=== PATIENT | male | born 1945 | race Caucasian/White ===

== ENCOUNTER 2020-11-30 06:52 | Observation (INO) ==
[2020-11-30] MEDS ORDERED: HEPARIN (PORCINE) 1000 UNIT/ML 10 ML (CATH LAB USE ONLY) ONE (08:30)
[2020-11-30] MEDS ORDERED: niCARdipine HCL INJ 2.5 MG/ML 10 ML AMP ONE (08:30)
[2020-11-30] MEDS ORDERED: MIDAZOLAM HCL 1 MG/ML 2ML VIAL ONE ×2 (08:31→10:24)
[2020-11-30] MEDS ORDERED: NITROGLYCERIN/D5W 100MCG/ML 20ML SYR ONE (08:31)
[2020-11-30] MEDS ORDERED: fentaNYL citrate 100 MCG/2 ML VIAL ONE (08:31)
--- NOTE | 2020-11-30 08:42 | History & Physical Bridge Note ---
Date of Service November 30, 2020 History & Physical Bridge Note I have examined the patient, reviewed the History & Physical and in the interval since the performance of the History & Physical I have noted the following changes of clinical significance: no changes noted
--- NOTE | 2020-11-30 08:42 | Pre Anesthesia Assessment ---
Date of Service November 30, 2020 Pre Sedation Assessment Vital Signs Temp Pulse Resp BP Pulse Ox 11/30/20 07:12 98.1 F 80 17 150/82 H 97 Cardiovascular RRR, no murmur, no edema Respiratory normal respiratory effort, lungs clear to auscultation Pre-Sedation Airway Assessment Smoking Status: Former smoker Hx Sleep Apnea: No Hx Difficult Intubation: No Short, Thick Neck: No Thyromental Distance: > or= 3.5 Finger Breadths Oral Cavity: + WNL Mallampati Class: II ASA: ASA3 NPO Status Date of Last Intake of Fluids: 11/30/20 Time of Last Intake of Fluids: 06:00 Date of Last Intake of Solid Food: 11/29/20 Time of Last Intake of Solid Foods: 17:30 Procedure Planning Contraindications for Sedation: none Current Medications Reviewed: Yes Notes The planned sedation has been discussed with the patient. Informed Consent was obtained. I have identified the patient, determined the appropriateness of sedation and have assessed the patient immediately prior to the procedure. All medicine(s) and interventions are by my order.
[2020-11-30] MEDS ORDERED: TICAGRELOR 90 MG TAB PO ONE (10:26)
[2020-11-30] MEDS ORDERED: EPTIFIBATIDE 2 MG/ML 10 ML VIAL (CATH LAB USE ONLY) IV ONE (10:26)
[2020-11-30] MEDS ORDERED: ONDANSETRON INJ 2 MG/ML 2 ML VIAL IV PRN (10:32)
[2020-11-30] MEDS ORDERED: NITROGLYCERIN SL 0.4 MG/TAB TAB SL PRN (10:32)
--- NOTE | 2020-11-30 10:32 | Post Anesthesia Assessment ---
Date of Service November 30, 2020 Post Sedation Assessment Vital Signs Temp Pulse Resp BP Pulse Ox 11/30/20 07:12 98.1 F 80 17 150/82 H 97 Recovery Score Activity: Moves 4 extremities Respiration: Deep Breath/Cough Circulation: +/-20% PreAnes Value Consciousness: Fully Awake Oxygen Saturation: O2 needed for >90% Discharge Sedation Level of Care: Fast Track Phase II Post Sedation Plan On clinical assessment, the patient appears to have tolerated the sedation without complications. Patient is recovering as anticipated. Patient will continue to be monitored by nursing and may be discharged when sedation discharge criteria are met per below protocol. Upon Completions of procedure up to 15 minutes continue every 5 minute vital signs and the P.A.R. score; then discharge to a Phase I or Fast Track to Phase II per the following guidelines: * Discharge Patient to appropriate Phase II area if PAR is 8 or greater or return to pre- procedure baseline. The post - procedure orders will be as directed. * If PAR score is less than 8 or not return to pre-procedure baseline then patient will follow Phase I monitoring till PAR is reached for Phase II. The Phase I may be done in procedure room or may call to secure a Phase I area. * If naloxone or flumazenil are used for reversal, hold in Phase I for continued monitoring from when last reversal dose was given for a minimum of 60 minutes or longer pending the nurse and/or physician discretion of patient condition before discharge to Phase II. Please call the Sedation Physician to re-evaluate and complete post-note for discharge to Phase II area. Do NOT discharge from procedure sedation or Phase 1 until post- sedation evaluation note is complete by procedure /sedation MD Sedation Discharge Instructions to be given to the patient at discharge to home.
[2020-11-30] MEDS ORDERED: GLUCOSE 10 TABS/TUBE PO PRN (10:37)
[2020-11-30] MEDS ORDERED: DEXTROSE 50% 50 ML SYRINGE IV PRN (10:37)
[2020-11-30] MEDS ORDERED: GLUCAGON FOR INJ 1 MG VIAL SQ PRN (10:37)
[2020-11-30] MEDS ORDERED: CARBOHYDRATES FOR HYPOGLYCEMIA PO PRN (10:37)
[2020-11-30] MEDS ORDERED: GLUCOSE 40% GEL 15 GM TUBE PO PRN (10:37)
--- NOTE | 2020-11-30 10:44 | Post Operative Brief Note ---
Cardiology Brief Post Op Date of Surgery November 30, 2020 Pre & Post Diagnosis Coronary artery disease Procedure Cardiac catheterization PCI of SVG to OM with 2 overlapping JHOAN Counselor Camp Kel Trevizo MD Sap Consultant Liliya Estimated Blood Loss 15 Findings See Below 99% SVG to OM Patent UNGER to LAD Occluded SVG to RCA Occluded ostial LAD 95 ostial circumflex Occluded proximal RCA Fluids -- Specimens Specimen Description: -- Anesthesia Type RN Sedation Complications none Disposition Accompanied Patient To Recovery: Yes Disposition: Recovery Room Overlapping Procedure I was present for: the critical portions of procedure. I was immediately available: during the entire case. Back up surgeon: was not required during procedure.
[2020-11-30] MEDS ORDERED: SODIUM CHLORIDE 0.9% 1000ML 1,000 ML IV SCH (10:45)
[2020-11-30] MEDS: INSULIN ASPART 100 UNITS/ML 3 ML PEN SC SCH ×3 (14:26→21:30)
[2020-11-30] MEDS: DOCUSATE SODIUM 100 MG CAP PO SCH (20:57)
[2020-11-30] MEDS: TICAGRELOR 90 MG TAB PO SCH (20:57)
--- NOTE | 2020-11-30 23:10 | Cardiac Catheterization ---
[facility] Data: Leak Hunter Cardiac Status Clinical evaluation leading to the procedure CAD Presenation: Positive Stress Test and Unstable angina Anginal Classification: CCS III Cardiogenic Shock within 24 Hours: No Cardiac Arrest within 24 Hours: No Imaging Studies Past 6 Months: Yes Stress Studies Past 6 Months: Yes Stress Echocardiogram: Yes - Positive and Risk/Extent of Ischemia (Intermediate) Diagnostic Physicians Name: Kel Trevizo MD Status: Elective Closure Device Percutaneous Entry Location: Radial Closure Device: Radial Band Recommendations: PCI without planned CABG PCI Indication: + Stress Test and Angina despite med therapy Lesion Segment Name: SVG-OM1 Culprit Artery: Yes Stenosis Prior to Rx (%): 99 Chronic Total Occlusion: No IVUS: No FFR: No Pre-Procedure SUNI Flow: 2 Previously Treated Lesion: No Lesion Complexity: High/C Lesion Length (mm): 30 Thrombus Present: Yes Bifurcation Lesion: No Guidewire Across Lesion: Stenosis Post-Procedure (%): 0 Post-Procedure SUNI Flow: 3 Devices(s) Deployed: Yes Yes Intraprocedure Events Significant Disection: No Perforation: No Cardiac Cath Procedure Full Procedure Date November 30, 2020 Pre-Procedure Diagnosis Pre-Procedure Diagnosis: Angina and Positive Stress Test AUC Score AUC Score: 7 Post-Procedure Diagnosis Post-Procedure Diagnosis: Severe CAD and Successful PCI Procedure(s) Performed Procedure(s) Performed: Coronary Angiography, Drug Eluting Stent and Bypass Graft Angiography Trip Rider Kel Trevizo MD Dynamiter(s) Liliya Estimated Blood Loss Estimated Blood Loss: 15 Medication(s) Medication(s): Fentanyl, Heparin, Integrilin, Lidocaine 1%, Nicardipine, Nitroglycerin and Versed Medication(s): Ticagrelor Summary of Findings Indication: Accelerating angina, abnormal stress test. History of coronary artery disease post three-vessel CABG and prior stenting of ostial LAD Access: 6 Fr left radial artery Catheters: JL4, JL 3.5, JR4, MPA, DIONICIO. JR4, LCB guide Findings: LM -long vessel with 50% mid segment stenosis and 95% distal stenosis extending into ostial circumflex LAD -100% chronic total occlusion at ostium Circumflex - 95% distal left main/ostial circumflex, 50% proximal disease. Large bifurcating OM1 with 95% ostial stenosis. Distal vessel with luminal irregularities prior to giving off small left PLB. RCA -dominant, 100% proximal chronic total occlusion. UNGER to LADwidely patent. Mid LAD after anastomosis patent. 70% distal stenosis. Remainder vessel wraps around apex without significant disease. LAD gives of left to right collaterals to right PDA. SVG to OM199% proximal, 50% mid vein graft stenosis. OM distal to anastomosis widely patent. SVG to RCAoccluded -- PCI of SVG to OM-- Antithrombotic therapy: Heparin, ticagrelor Procedure: SVG to OM cannulated with JR4 guide Attempted to place filter wire but unable to pass filter wire passed proximal stenosis Sueding Machine Tender 50 wire passed across lesion into distal OM Proximal vein graft lesion predilated with 2.0 compliant balloon Second attempt made to pass filter wire but unsuccessful. Vein graft disease dilated with 2.5 balloon. Given IC Integrilin preemptively for concern of no reflow With the aid of a telescope guide generator mechanic was able to pass a 3.5 x 18 mm Rylan drug-eluting stent into mid segment of graft Proximal lesion dilated with 3.5 balloon but still unable to pass second stent across proximal lesion Equipment removed and SVG recannulated with LCB guide BMW wire placed across proximal SVG lesion and mid SVG stent into the [place] OM With the aid of telescope able to place a 3.5 x 15 mm Rylan drug-eluting stent across proximal lesion in overlapping with initial mid segment stent Stent post-dilated with stent balloon IC vasodilators Post procedure SUNI 3 flow, stents well expanded with minimal residual stenosis and no apparent cardiac complications. Arterial Closure: TR band Summary: 1. Severe chronic [place] multivessel coronary artery disease -50% mid left main, 95% distal left main extending into ostial circumflex 100% chronic total occlusion of ostial LAD 100% chronic total occlusion of proximal RCA. Right PDA fills via [id number] collaterals. 95% ostial OM1 2. Patent UNGER to LAD. 70% distal LAD after anastomosis. 3. SVGOM1 with 99% proximal, 50% mid vein graft disease. SVG to RCA occluded. 4. Successful PCI of proximal to mid vein graft to OM1 with 2 overlapping drug- eluting stents (3.5 x 15, 3.5 x 18 mm Rylan). Recommendations: To PCU for continued monitoring Loaded with ticagrelor 180 mg in quality assurance/r&d lab technician Continue dual-antiplatelet therapy for at least 1 year Consult cardiac Rehab Hemodynamics Rest Ao:: 90//72 Final Ao: 83/52/77 LV: -- Recommendations Recommendations: PCI without planned CABG Specimens Specimens: None Radiation Exposure (mGy) 4172 Contrast (mls) 140 Fluids (cc crystalloids) Fluids (cc crystalloids): 230 Drains Drains: none Anesthesia moderate [id number] Procedural Complication(s) None Disposition PCU I attest to the content of the Intraoperative Record and any orders documented therein. Any exceptions are noted below. [facility] Card Cath Procedure Codes Cardiac Catheterization Procedure 1: Cardiovascular Cath Procedures: 38142 Coronaries and Grafts/IM (venous & atrial) Moderate Sedation Procedure 1: Sedation/Anesthesia: 85819 Mod Sedation by the same physician;Init15 Min Child Age 5 & Up Procedure 2: Sedation/Anesthesia: 78504 Mod Sedation by the same physician; Ea [id number] Minutes Stenting Procedure 1: Cardiovascular Stent Procedures: 23007 Perc tranluminal revascularization of or throughout CABG PG Care Time/CCT Total # of Minutes Spent Total Time Spent with Patient: Total time spent is greater than 50% in coordination of care (as documented) at patient's floor/unit and/or counseling patient:
[2020-12-01 06:28] LABS: Basophils # (auto) 0.03 K/uL (0-0.2); Basophils % (auto) 0.4 %; Eosinophils # (auto) 0.57 K/uL (0-0.5); Eosinophils % (auto) 7.3 %; Hematocrit (blood only) 46.7 % (42-52); Hemoglobin 16.9 g/dL (14.0-18.0); Immature Granulocytes # (auto) 0.01 K/uL (0.00-0.02); Immature Granulocytes % (auto) 0.1 %; Lymphocytes # (auto) 1.62 K/uL (1.2-3.4); Lymphocytes % (auto) 20.8 %; Mean Corpuscular Hemoglobin 34.9 pg (25-34); Mean Corpuscular Hgb Conc 36.2 g/dL (32-36); Mean Corpuscular Volume 96.5 fL (80-100); Mean Platelet Volume 10.8 fL (7.4-10.4); Monocytes # (auto) 0.62 K/uL (0.11-0.59); Neutrophils # (auto) 4.94 K/uL (1.4-6.5); Neutrophils % (auto) 63.4 %; Platelet Count 141 K/uL (130-400); RDW Coefficient of Variation 13.1 % (11.5-14.5); RDW Standard Deviation 45.8 fL (36.4-46.3); Red Blood Count 4.84 M/uL (4.7-6.1); White Blood Count 7.79 K/uL (4.8-10.8)
[2020-12-01 06:59] LABS: BUN Creatinine Ratio 14.7 (10-20); Calcium 9.3 mg/dl (8.5-10.1); Creatinine Clr Calc Pharmacy 47.1 ml/min; Est GFR (Non-African American) 48.3; Potassium 4.1 mmol/L (3.5-5.1)
[2020-12-01] MEDS: DOCUSATE SODIUM 100 MG CAP PO SCH (08:08)
[2020-12-01] MEDS: TICAGRELOR 90 MG TAB PO SCH (08:08)
[2020-12-01] MEDS ORDERED: lisinopril 5 MG TAB PO SCH (09:00)
[2020-12-01] MEDS ORDERED: ASPIRIN 81 MG ECTAB PO SCH (09:00)
[2020-12-01] MEDS ORDERED: MULTIVITAMIN TAB PO SCH (09:00)
[2020-12-01] MEDS ORDERED: NON-FORMULARY MEDICATION (Coq10 (Ubiquinol) 200 mg Capsule) PO SCH (09:00)
[2020-12-01] MEDS ORDERED: METOPROLOL SUCC 50MG EXT REL TAB PO SCH (09:00)
[2020-12-01] MEDS: INSULIN ASPART 100 UNITS/ML 3 ML PEN SC SCH (09:27)
--- NOTE | 2020-12-01 10:03 | Discharge Summary ---
Date of Service December 01, 2020 Admission HPI Per Admitting Provider 75 year old man with accelerating angina and abnormal stress test. Prior history of CAD post 3vCABG and prior LAD stenting. Presented for cardiac catheterization. Discharge Data Consultations 11/30/20 10:35 Consult Cardiac Rehabilitation Routine Procedures Performed Operation Date: 11/30/20 08:00 Actual Procedures p Cath, Left w/Cors Vent Grafts - Morris Trevizo MD s Cineradiography w/Routine Exam - Morris Trevizo MD s Drug Eluding Stent, SVG/DIONICIO, A - Morris Trevizo MD Hospital Course (1) Coronary artery disease with exertional angina: Cardiac catheterization revealed followin. Severe chronic [place] multivessel coronary artery disease -50% mid left main, 95% distal left main extending into ostial circumflex 100% chronic total occlusion of ostial LAD 100% chronic total occlusion of proximal RCA. Right PDA fills via [id number] collaterals. 95% ostial OM1 2. Patent UNGER to LAD. 70% distal LAD after anastomosis. 3. SVGOM1 with 99% proximal, 50% mid vein graft disease. SVG to RCA occluded. 4. Successful PCI of proximal to mid vein graft to OM1 with 2 overlapping drug- eluting stents (3.5 x 15, 3.5 x 18 mm [place]). Post PCI admitted for observation. Overnight had no chest pain. Electrically stable on telemetry. Post procedure labs stable. Mild ecchymosis at LT radial artery access site but no hematoma. Discharge to home on post procedure day 1. Clopidogrel changed to ticagrelor for at least 1 month. Follow-up with Dr. Lucas in 2 weeks. Discharge Instructions Home Medications Benefiber Sugar Free (dextrin) 1 packet PO QAM 04/29/19 [History Confirmed 11/30/20] allopurinol 300 mg PO HS 04/29/19 [History Confirmed 11/30/20] aspirin [Aspirin Low Dose] 81 mg PO HS 04/29/19 [History Confirmed 11/30/20] coQ10 (ubiquinol) 200 mg PO QAM 04/29/19 [History Confirmed 11/30/20] docusate sodium [Stool Softener] 200 mg PO BID 04/29/19 [History Confirmed 11/30/20] metformin 500 mg PO BIDM 04/29/19 [History Confirmed 11/30/20] metoprolol succinate 100 mg PO QAM 04/29/19 [History Confirmed 11/30/20] multivitamin 1 tab PO QAM 04/29/19 [History Confirmed 11/30/20] rosuvastatin 5 mg PO 4XWK 04/29/19 [History Confirmed 11/30/20] spironolactone 25 mg PO QAM 04/29/19 [History Confirmed 11/30/20] furosemide 20 mg tablet 10 mg PO QAM #90 tab 07/30/19 [Rx Confirmed 11/30/20] lisinopril 5 mg tablet 5 mg PO DAILY #90 tab 04/09/20 [Rx Confirmed 11/30/20] dulaglutide 0.75 mg/0.5 mL subcutaneous pen injector 1 mg SUBCUT WK 09/02/20 [History Confirmed 11/30/20] ranolazine 500 mg tablet,extended release,12 hr 500 mg PO BID #180 tab 11/08/20 [Rx Confirmed 11/30/20] ticagrelor [Brilinta] 90 mg PO BID #60 tab 12/01/20 [Rx] Coding Level of Care Code 81657 OBS Care - Discharge Diagnoses Coronary artery disease with exertional angina I25.118
--- NOTE | 2020-12-01 12:34 | Electrocardiogram Report ---
Test Reason : Blood Pressure : / mmHG Vent. Rate : 075 BPM Atrial Rate : 075 BPM P-R Int : 168 ms QRS Dur : 104 ms QT Int : 418 ms P-R-T Axes : 073 083 112 degrees QTc Int : 466 ms Normal sinus rhythm Possible Left atrial enlargement Possible Inferior infarct (cited on or before 11-DEC-2009) Abnormal ECG When compared with ECG of 24-JUN-2010 06:47, T wave inversion no longer evident in Inferior leads T wave inversion no longer evident in Anterolateral leads Confirmed by Stew Yin ([id number]) on 12/01/2020 12:34:33 PM Referred By: Naeem Lucas Confirmed By:Stew Yin
== END 2020-12-01 10:23 | disposition home or self-care (01) ==
LOC: CC 06:52 → 2S 06:52
PROC: CLB.CCG (2020-11-30 08:00)

== ENCOUNTER 2023-02-12 10:36 | Inpatient (IN) ==
[2023-02-12] MEDS ORDERED: SODIUM CHLORIDE 0.9% 1000ML 1,000 ML IV ONE (11:03)
[2023-02-12] MEDS ORDERED: cefTRIAXone SODIUM 2,000 MG/70 ML BAG IV STA (11:03)
[2023-02-12 11:33] LABS: Basophils # (auto) 0.03 K/uL (0-0.2); Basophils % (auto) 0.4 %; Eosinophils # (auto) 0.09 K/uL (0-0.50); Eosinophils % (auto) 1.3 %; Hemoglobin 14.5 g/dl (14.0-18.0); Immature Granulocytes # (auto) 0.02 K/uL (0.01-0.20); Immature Granulocytes % (auto) 0.3 %; Lymphocytes # (auto) 0.57 K/uL (1.2-3.4); Lymphocytes % (auto) 8.2 %; Mean Corpuscular Hemoglobin 33.6 pg (25.0-34.0); Mean Corpuscular Hgb Conc 35.4 g/dL (32.0-36.0); Mean Corpuscular Volume 94.9 fL (80.0-100.0); Mean Platelet Volume 9.9 fL (9.4-12.4); Monocytes # (auto) 0.33 K/uL (0.11-0.59); Monocytes % (auto) 4.8 %; Neutrophils # (auto) 5.89 K/uL (1.40-6.50); Platelet Count 167 K/uL (130-400); RDW Coefficient of Variation 12.8 % (11.5-14.5); Red Blood Count 4.32 M/uL (4.70-6.10); White Blood Count 6.93 K/ul (4.8-10.8)
[2023-02-12 11:39] LABS: BUN Creatinine Ratio 16.1 (10-20); Bilirubin Direct 0.3 mg/dl (0-0.2); Bilirubin,Total 1.1 mg/dl (0.2-1.0); Calcium 8.9 mg/dl (8.6-10.3); Creatinine Clr Calc Pharmacy 45.4 ml/min; Est GFR (African American) 54.7 ml/min; Est GFR (Non-African American) 47.2 ml/min; Magnesium 1.9 mg/dl (1.7-2.4); Potassium 4.2 mmol/L (3.5-5.1); Total Protein 7.3 gm/dl (6.0-8.3)
[2023-02-12 11:46] LABS: Troponin I High Sensitivity 13.9 pg/ml (0-20)
[2023-02-12] MEDS ORDERED: ACETAMINOPHEN 325 MG TAB PO PRN (12:09)
[2023-02-12] MEDS ORDERED: ALUMINUM/MAGNESIUM SUSP 30 ML UDC PO PRN (12:09)
[2023-02-12] MEDS ORDERED: ONDANSETRON INJ 2 MG/ML 2 ML VIAL IV PRN (12:09)
[2023-02-12] MEDS ORDERED: POLYETHYLENE (MIRALAX) 17 GM PACK PO PRN (12:09)
[2023-02-12] MEDS ORDERED: MAGNESIUM HYDROXIDE SUSP 30 ML UDC PO PRN (12:09)
--- NOTE | 2023-02-12 12:20 | History & Physical Report ---
Date of Service February 12, 2023 Assessment & Plan (1) Bacteremia: (2) CAMELIA (acute kidney injury): (3) History of coronary artery bypass graft x 3: (4) S/P drug eluting coronary stent placement: (5) S/P aortic valve replacement with bioprosthetic valve: (6) Hypertension: (7) Hyperlipidemia: (8) Diabetes mellitus, type 2: (9) Chronic kidney disease, stage 3: (10) CHAMPAGNE (nonalcoholic steatohepatitis): Plan 77 year old presents with CHRISTOPHER and fever that has persisted over the past few days. Yesterday his temperature went up to 104 and has responded to Tylenol. He presented to the ED yesterday and had a workup including BC that returned 11/28 gram + strep. Streptococcus PCR (+). No leukocytosis. Hypona+ worsening CAMELIA 1.1--> 1.43 in 24 hours. Pt had CABG x3 and AVR in 2009; will obtain ECHO to r/o IE. On Plavix + ASA. Lacate 2.0, Procal increased from yesterday. consider LP. H/O renal lesions as outlined below. Bacteremia: Blood cultures 02/11/2023: Gram-positive cocci in clusters Streptococcus PCR positive Per recommendations of pharmacy cover with ceftriaxone; first dose given in ED; will continue and add Vanco Procalcitonin increased from 0.95 yesterday to 1.16 today Lactate 2.0; will trend Lyme negative anaplasmosis negative BioFire negative Chest x-ray negative MRSA screen ordered ECHO ordered to rule out infective endocarditis in relation to prosthetic valve; if negative consider MARIA ELENA Will obtain abdominal/pelvic CT to rule out metastatic disease and septic emboli Possible LP for r/o meningitis Infectious disease consultation placed CAMELIA on CKD Stage III: Hyponatremia: Suspect related to dehydration and illness No urinary changes Creatinine 1.17 yesterday--> 1.43 today; baseline 1.1-1.2 Renal ultrasound in 2015: Medial left renal lesion seen on CT is not appreciated on ultrasound. Suggest MRI or CT via renal mass. Right Kidney: Normal size and echotexture. The right kidney measures 11.5 x 6.0 x 5.7 cm. Left Kidney: Normal size and echotexture. The left kidney measures 11.5 x 6.3 x 5.1 cm. Superior pole cyst measuring approximately 2.[address] performed 2014: showed decrease in lesion size Obtain abd/pelvic CT while here Gentle fluid rehydration NSS at 80mL/hour x1 bag Recheck BMP this evening at 1800; if worsening; consider Nephrology consultation History of CABG x3: Status post drug-eluting stent: Status post AVR with p.o. bioprosthetic valve: Performed 2009; follows with Dr. Harper Obtain ECHO to rule out IE; if negative consider MARIA ELENA HTN: Takes metoprolol and Coreg; continue HLD: Takes rosuvastatin; continue Last lipid panel 11/08/2022; TG 167, HDL 71, LDL 104 Diabetes mellitus type 2: Jfr-bolagxi-urahzyaqu Takes Trulicity and Metformin; hold while inpatient FSBS ACHS SSI Glycemic consultation for Lantus management A1c 11/08/2022: 6.8 we will recheck while here H/O CHAMPAGNE: TBili: 1.1, direct bili 0.3 No transaminitis Disposition: PCP: Dr. Powell Code Status: Full Code VTE Prophylaxis: Teds/SCDs for now. I spent a total of 88 minutes coordinating, documenting, and providing care for this patient excluding time spent in the performance of separately billed services. All of the aforementioned completed while collaborating with the assigned attending physician for a full treatment plan. Please see their addendum for further details. History of Present Illness Chief Complaint: bacteremia - (+) blood cultures Primary Care Provider: Fadi Scott DO Mr. Guan is a 77-year-old male that presented to the [facility] ED today after results of his blood cultures came back gram-positive cocci in clusters and Streptococcus PCR positive that were drawn yesterday 02/11/23. He was seen in the ER yesterday for headache, fever, and achiness. Work-up was negative at that time; however, blood cultures came back positive today so he was advised to present to the ED. Patient states that he is feeling improved today compared to yesterday. No leukocytosis WBC 6.93, procalcitonin yesterday 0.95 and has increased today to 1.16. Hyponatremic sodium 131, CAMELIA creatinine 1.43; baseline 1.1. CXR today negative for acute cardiopulmonary disease. As cultures returned positive < 24 hours; higher concern for ruling out cause. Will obtain ECHO to rule out IE, especially with bioprosthetic valve. If negative, will consider MARIA ELENA for further evaluation. Patient is a current resident of [facility] [[email or web address] Patient twisted his knee playing golf in 2021 and also suffered a quad injury in 2022 and has been getting physical therapy with PT at [facility] with improvement. Patient follows with Dr. Alberto with vascular for peripheral vascular disease and claudication which has been improving with exercise. He is quite active and has an upcoming trip planned to [facility] and [place] on a cruise in February 2023. 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 No nephrectomy performed. He had a renal ultrasound in 2015: Medial left renal lesion seen on CT is not appreciated on ultrasound. Suggest MRI or CT via renal mass. Right Kidney: Normal size and echotexture. No significant collecting system dilatation or stones evident. The right kidney measures 11.5 x 6.0 x 5.7 cm. Left Kidney: Normal size and echotexture. No significant collecting system dilatation or stones evident. The left kidney measures 11.5 x 6.3 x 5.1 cm. Superior pole cyst measuring approximately 2.[address] done in 2015; lesion decreased in size. Have concerns about a man with no real source of infection; consistent headaches and fevers over past few weeks. patient is on Plavix and ASA; need to consider Meningitis ans source; will discuss with radiology for performance of LP. Patient denies visual or auditory changes, dizziness, abdominal pain, tenderness, Nausea, Vomiting, Diarrhea mucous stool, malodorous stool, recent falls or trauma, rashes, bruising, or appetite changes. Additional past medical history includes CABG x3 (2009) s/p AVR prosthetic tissue valve (On Plavix), tib-nqbsazu-ebfjjlspc diabetes mellitus type 2 (On Trulicity and Metformin), HTN, HLD, and H/O CHAMPAGNE. Patient denies tobacco and recreational drug use. Pt denies recent travel or known sick exposures. Patient denies any stiff or swollen joints. Patient does not appear toxic on exam and is hemodynamically stable. Patient will be admitted for further evaluation and management of his bacteremia. Please see A/P for further details. Allergies Allergy/AdvReac Type Severity Reaction Status Date / Time atorvastatin Allergy Severe RHABDO Verified 02/12/23 12:34 niacin Allergy Mild FACIAL Verified 02/12/23 12:34 BURNING Home Medications Medication Instructions Recorded Confirmed Type allopurinol 300 mg tablet 300 mg PO HS 04/29/19 02/12/23 History aspirin 81 mg tablet,delayed 81 mg PO HS 04/29/19 02/12/23 History release (Yunior Low Dose Aspirin) coQ10 (ubiquinol) 200 mg capsule 200 mg PO QAM 04/29/19 02/12/23 History docusate sodium 100 mg tablet 200 mg PO BID 04/29/19 02/12/23 History (Stool Softener) metformin 500 mg tablet 500 mg PO BIDM 04/29/19 02/12/23 History spironolactone 25 mg tablet 25 mg PO QAM 04/29/19 02/12/23 History wheat dextrin 3 gram/3.8 gram oral 1 packet PO QAM 04/29/19 02/12/23 History powder (Benefiber Sugar Free (dextrin)) dulaglutide 0.75 mg/0.5 mL 3 mg subcut WK 10/27/21 02/12/23 History subcutaneous pen injector (Trulicity) metoprolol succinate 100 mg 100 mg PO DAILY #30 tabs 11/09/21 02/12/23 Rx tablet,extended release 24 hr (Toprol XL) nitroglycerin 0.4 mg sublingual 0.4 mg sublingual Q5M PRN chest 12/17/21 02/12/23 Rx tablet pain #75 tabs clopidogrel 75 mg tablet (Plavix) 75 mg PO QAM 02/11/23 02/12/23 History ytslukeunslw-itj-wgfup acid-vit 1 tab PO DAILY 02/11/23 02/12/23 History K-lycop 400 mcg-20 mcg-370 mcg tablet (Men's 50 Plus Multivitamin) rosuvastatin 10 mg tablet 10 mg PO [id number] 02/11/23 02/12/23 History Past Med/Surg History Medical History CAMELIA (acute kidney injury) Bacteremia CAD (coronary artery disease) Cardiac murmur Chest pain Chronic kidney disease, stage 3 Coronary artery disease with exertional angina Diabetes mellitus, type 2 Exertional angina Fatigue Gout History of colon polyps Hyperlipidemia Hypertension CHAMPAGNE (nonalcoholic steatohepatitis) Postural lightheadedness Sleep apnea no longer has, lost weight Weakness Surgical History History of aortic valve replacement done at [place] time [place] [facility] [place] with Dr. Lucas History of cardiac cath x2-- History of colonoscopy History of coronary artery bypass graft x 3 2010 @ [facility] [place]follows with Dr. Lucas History of heart artery stent 2010 x2 stent History of hemorrhoidectomy History of thoracentesis History of tooth extraction S/P aortic valve replacement with bioprosthetic valve Family History Brother Family history of diabetes mellitus 2 Sister Family history of diabetes mellitus Other No family history of adverse response to anesthesia Social History Smoking Status: Former smoker Tobacco Type: Cigarettes Second Hand Exposure: No; Do You Dip or Chew Tobacco: No; Tobacco Cessation Education Requested by Patient: No Hx Alcohol Use: Yes Alcohol type: beer and wine Hx Substance Use: No Preferred Language: German Communication Ability: Effective Relationship Mgr Required: No Beliefs That Will Affect Care: None Current Living Situation: Spouse Other Information That Helps Us Care for You: No Feels Safe at Home: Yes Safety Concerns: Feels Safe At This Time Assistive Devices: None Review of Systems Review of Systems: Neuro: (-) Falls, trauma, slurred speech HEENT: (+) CHRISTOPHER, (-)dizziness, dysphagia, visual or auditory changes CV: (-) CP, palpitations, swelling Resp: (-) SOB GI: (-) appetite changes, N/V/D, bowel changes : (-) urinary changes Skin: (-) rashes (-) Psych: (-) anxiety, depression Physical Exam Physical Exam: Neuro: AAOx4, PERRLA, no aphagia, memory changes, CNII-XII grossly intact HEENT: head normocephalic, moist mucus membranes CV: S1/S2, (-) M/G/R, (-) edema, cap refill < 3 seconds Resp: Lungs CTA in all chris. On RA GI: Abdomen large S/NT/ND, Ax4 bowel sounds, (-) CVA tenderness Musculoskeletal: 5/5 B/L UE strength, 5/5 B/L LE strength. No gait disturbance Skin: (-) rashes , (-) erythema (-) ecchymosis. Psych: euthymic mood Results & Data Results & Data Vital Signs (Past 12 Hours) Vital Signs Temp Pulse Resp BP Pulse Ox O2 Del Method 02/12/23 10:36 36.7 C 97 H 20 130/74 96 Room Air Laboratory Results Short CBC 02/12/23 Range/Units 11:00 WBC 6.93 (4.8-10.8) K/ul Hgb 14.5 (14.0-18.0) g/dl Hct 41.0 L (42.0-52.0) % Plt Count 167 (130-400) K/uL BMP 02/12/23 11:00 Sodium 131 L Potassium 4.2 Chloride 99 Carbon Dioxide 24 BUN 23 Creatinine 1.43 H Glucose 269 H Calcium 8.9 Liver Function 02/12/23 Range/Units 11:00 Total Bilirubin 1.1 H (0.2-1.0) mg/dl Direct Bilirubin 0.3 H (0-0.2) mg/dl AST 26 (13-39) U/L ALT 36 (7-52) U/L Alkaline Phosphatase 89 (34-104) U/L Albumin 4.0 (3.4-5.0) gm/dl Code Status & VTE Plan Code Status Full Code in the event of cardiac or respiratory arrest VTE Prophylaxis Plan VTE Prophylaxis will be ordered: Yes Supervising Physician Co-Signing Physician Notes I have seen and examined the patient and have discussed the case with the provider above. I agree with the assessment and plan as stated with the following exceptions. I have seen and examined the patient and have discussed the case with the provider above. I agree with the assessment and plan as stated with the following exceptions. The patient is a 77-year-old man that presents for being called back about positive blood cultures. PCR from blood cultures yesterday revealed Streptococcus species in 4 out of 4 cultures. Yesterday he presented with headache fever and generalized malaise for the past week. Headache was described as consistent and in the front. He denied any photophobia or neck stiffness. He has participated in [employer] and travel to [place] within the last week but denies any GI symptoms respiratory symptoms skin issues, open wounds or other significant sick contacts in his recent history. He denies any chest pain. He does have a bioprosthetic valve in place. He has not been eating well and denies any changes in his stool. Patient denies any bites from insects recently. On physical exam he is afebrile and hemodynamically stable. He is nontoxic- appearing he is well-nourished and well-developed and appears younger than stated age. He has no gross focal neuromuscular deficits. Lungs are clear to auscultation throughout. Abdomen is soft nontender nondistended. Cardiac exam reveals S1-S2 heard with a systolic ejection murmur across precordium. He appears euvolemic to dry with no evidence of peripheral edema. Skin is warm and dry with no significant rash or bites from what can be evaluated as he has tight pants on limiting evaluation of his upper thighs buttocks area and groin. Work-up in the ER today reveals a normal CBC, sodium of 131 which was 129 yesterday, normal potassium. BUN of 23 up from 16 yesterday and creatinine of 1.43 up from 1.17 yesterday. Glucose is elevated to 69. A1c is 7. At bedtime troponin is negative. Procalcitonin is increased from yesterday, 0.95-1.16 today. UA does not reveal evidence of infection. Chest x-ray reveals no acute cardiopulmonary abnormality. Abdomen pelvis CT with contrast reveals no acute findings with cholelithiasis and right-sided nephrolithiasis. Notably bilirubin is 1.1. Head CT with recent history of headache revealed no acute intracranial abnormality. 1. Bacteremia with unclear source 2. Presence of bioprosthetic aortic valve 3. CAD s/p CABG and stents in the past 4. Acute on chronic CKD 5. DMII Overall this is a 77-year-old man with generalized malaise and bacteremia, PCR revealing strep species with sensitivities pending. There is no clear source, however, given ongoing headache and fever for the last week, meningitis was considered. Patient is very nontoxic and appears stable and is afebrile today. He is reporting the headache is not currently present. He is also on aspirin and Plavix which increases the risk of complications with a lumbar puncture. Head CT is negative for acute intracranial abnormality. I discussed this with both radiology and infectious disease specialists, and opted to empirically treat with Rocephin 2 g IV every 12 in case of bacterial meningitis for now and avoid the procedure. With prosthetic valve and bacteremia, prosthetic valve endocarditis is a concern. A murmur is present on exam. Given his high bacterial load and recent clinical picture with ongoing fever and malaise a MARIA ELENA was recommended given the TTE was unremarkable. This was per the my discussion with ID who was consulted and will see him tomorrow. I also discussed if we should cover more broadly with Vanc/gent despite the PCR revealing only strep species. For now, given his stable clinical picture, the Rocephin at the higher dose will be continued and will repeat blood cultures today and until they are cleared. Agree with mild rehydration with IVF with renal insufficiency and contrast given today. Will repeat BMP daily and encourage oral hydration. Patricio,
--- NOTE | 2023-02-12 13:08 | Emergency Department Note ---
History of Present Illness General Chief Complaint: Abnormal Labs/Diagnostic Testing Stated Complaint: REF BY DOC, ABNORMAL LABS Time Seen by Provider: 02/12/23 11:01 History of Present Illness Provider Complaint: + abnormal lab and + needs IV antibiotics Returns today for: + needs IV antibiotics Description of abnormal result: 4/ positive blood cultures Associated symptoms: + fever; no shortness of breath or no rash HPI narrative: Patient reports he was seen in the emergency department yesterday and discharged home. Patient states since getting home he feels much better actually. Home Medications Medication Instructions Recorded Confirmed Type allopurinol 300 mg tablet 300 mg PO HS 04/29/19 02/12/23 History aspirin 81 mg tablet,delayed 81 mg PO HS 04/29/19 02/12/23 History release (Yunior Low Dose Aspirin) coQ10 (ubiquinol) 200 mg capsule 200 mg PO QAM 04/29/19 02/12/23 History docusate sodium 100 mg tablet 200 mg PO BID 04/29/19 02/12/23 History (Stool Softener) metformin 500 mg tablet 500 mg PO BIDM 04/29/19 02/12/23 History spironolactone 25 mg tablet 25 mg PO QAM 04/29/19 02/12/23 History wheat dextrin 3 gram/3.8 gram oral 1 packet PO QAM 04/29/19 02/12/23 History powder (Benefiber Sugar Free (dextrin)) dulaglutide 0.75 mg/0.5 mL 3 mg subcut WK 10/27/21 02/12/23 History subcutaneous pen injector (Trulicity) metoprolol succinate 100 mg 100 mg PO DAILY #30 tabs 11/09/21 02/12/23 Rx tablet,extended release 24 hr (Toprol XL) nitroglycerin 0.4 mg sublingual 0.4 mg sublingual Q5M PRN chest 12/17/21 02/12/23 Rx tablet pain #75 tabs clopidogrel 75 mg tablet (Plavix) 75 mg PO QAM 02/11/23 02/12/23 History uautjuzldgol-tno-veyyr acid-vit 1 tab PO DAILY 02/11/23 02/12/23 History K-lycop 400 mcg-20 mcg-370 mcg tablet (Men's 50 Plus Multivitamin) rosuvastatin 10 mg tablet 10 mg PO 4XWK 02/11/23 02/12/23 History Allergies Allergy/AdvReac Type Severity Reaction Status Date / Time atorvastatin Allergy Severe RHABDO Verified 02/12/23 12:34 niacin Allergy Mild FACIAL Verified 02/12/23 12:34 BURNING Past Med/Surg History Medical History CAMELIA (acute kidney injury) Bacteremia CAD (coronary artery disease) Cardiac murmur Chest pain Chronic kidney disease, stage 3 Coronary artery disease with exertional angina Diabetes mellitus, type 2 Exertional angina Fatigue Gout History of colon polyps Hyperlipidemia Hypertension CHAMPAGNE (nonalcoholic steatohepatitis) Postural lightheadedness Sleep apnea no longer has, lost weight Weakness Surgical History History of aortic valve replacement done at same time as CABG @ [facility] [place]follows with Dr. Lucas History of cardiac cath x2-- History of colonoscopy History of coronary artery bypass graft x 3 2009 @ [facility] [place]follows with Dr. Lucas History of heart artery stent 2009 x2 stent History of hemorrhoidectomy History of thoracentesis History of tooth extraction S/P aortic valve replacement with bioprosthetic valve Family History Brother Family history of diabetes mellitus 2 Sister Family history of diabetes mellitus Other No family history of adverse response to anesthesia Social History Smoking Status: Never smoker Tobacco Type: Cigarettes Second Hand Exposure: Yes (father smoked); Do You Dip or Chew Tobacco: No (quit 50yrs ago); Hx Alcohol Use: Yes Alcohol type: beer and wine Hx Substance Use: No Preferred Language: Grenadian Communication Ability: Effective Cooking Instructor Required: No Beliefs That Will Affect Care: None Current Living Situation: Spouse Feels Safe at Home: Yes Assistive Devices: None Physical Exam Vital Signs: Vital Signs - 24 hr 02/12/23 10:36 02/12/23 12:30 02/12/23 12:20 Temperature 36.7 C Temperature Source Temporal Artery Sc an Pulse Rate 97 H 84 Pulse Rate [Apical ] 84 Respiratory Rate 20 21 Respiratory Effort / Characteristics Non-Labored Non-Labored Sponta neous Respiratory Depth Normal Normal Blood Pressure 130/74 Blood Pressure [Ri ght Arm] 113/60 Blood Pressure Reema n 92 Blood Pressure Reema n [Right Arm] 77 Pulse Oximetry 96 97 Oxygen Delivery Me thod Room Air Room Air Sepsis Recent Feve r Within 48 Hours No Sepsis New/Unexpla ined Change in Men lenny Status N/A Sepsis Action Take n by Nursing No Action Required 02/12/23 12:00 Temperature Temperature Source Pulse Rate 83 Pulse Rate [Apical ] Respiratory Rate 14 Respiratory Effort / Characteristics Respiratory Depth Blood Pressure Blood Pressure [Ri ght Arm] Blood Pressure Reema n Blood Pressure Reema n [Right Arm] Pulse Oximetry Oxygen Delivery Me thod Sepsis Recent Feve r Within 48 Hours Sepsis New/Unexpla ined Change in Men lenny Status Sepsis Action Take n by Nursing Physical Exam: Physical Exam GENERAL: oriented to person, place, and time. appears well-developed and well- nourished. HENT: Exam performed. - Head: Normocephalic and atraumatic. - Mouth: Mucous membranes moist. No trismus. No oropharyngeal exudates. No PRECISION LENS TECHNICIAN. No uvula swelling. EYES: Conjunctivae and EOM are normal. Right eye exhibits no discharge. Left eye exhibits no discharge. No scleral icterus. NECK: Normal range of motion. Neck supple. No JVD present. No meningeal signs. CV: Normal rate, regular rhythm, normal heart sounds and intact distal pulses. There is no peripheral edema. Palpable radial pulses bue. PULM/CHEST: Effort normal and breath sounds normal. No respiratory distress. No stridor. no wheezes. no rales. ABD: The abdomen is soft. There is no tenderness. NEURO: Motor and sensation grossly intact. SKIN: Skin is warm and dry. He is not diaphoretic. PSYCH: normal mood and affect. Behavior is normal. Judgment and thought content normal. Course Course 1101: The patient was evaluated in room C12. A complete history and physical exam was performed Administered Medications Discontinued Medications Sodium Chloride (Nss 1000ml) 1,000 mls @ 999 mls/hr IV .Q1H1M ONE Stop: 02/12/23 12:03 Last Admin: 02/12/23 11:32 Dose: 999 mls/hr Documented By: ROSA Ceftriaxone Sodium (Rocephin) 2,000 mg in 70 mls @ 140 mls/hr IV NOW STA Stop: 02/12/23 11:32 Last Infusion: 02/12/23 12:31 Dose: 0 mls/hr Documented By: Admin: 02/12/23 11:31 Dose: 140 mls/hr Documented By: ROSA Medical Decision Making Laboratory Data Attestation: I reviewed the patient's lab results. 02/12/23 11:00 02/12/23 11:00 Lab Results 02/12/23 02/12/23 02/12/23 Range/Units 11:00 11:00 11:00 WBC 6.93 (4.8-10.8) K/ul RBC 4.32 L (4.70-6.10) M/uL Hgb 14.5 (14.0-18.0) g/dl Hct 41.0 L (42.0-52.0) % MCV 94.9 (80.0-100.0) fL MCH 33.6 (25.0-34.0) pg MCHC 35.4 (32.0-36.0) g/dL RDW Std Deviation 44.0 (36.4-46.3) fL RDW Coeff of Daria 12.8 (11.5-14.5) % Plt Count 167 (130-400) K/uL MPV 9.9 (9.4-12.4) fL Immature Gran % (Auto) 0.3 % Neut % (Auto) 85.0 % Lymph % (Auto) 8.2 % [place] % (Auto) 4.8 % Eos % (Auto) 1.3 % Baso % (Auto) 0.4 % Neut # (Auto) 5.89 (1.40-6.50) K/uL Lymph # (Auto) 0.57 L (1.2-3.4) K/uL [place] # (Auto) 0.33 (0.11-0.59) K/uL Eos # (Auto) 0.09 (0-0.50) K/uL Baso # (Auto) 0.03 (0-0.2) K/uL Immature Gran # (Auto) 0.02 (0.01-0.20) K/uL Sodium 131 L (136-145) mmol/L Potassium 4.2 (3.5-5.1) mmol/L Chloride 99 (98-107) mmol/L Carbon Dioxide 24 (21-32) mmol/L Anion Gap 8 (3-11) BUN 23 (6-23) mg/dl Creatinine 1.43 H (0.6-1.4) mg/dl Est Cr Clr Drug Dosing 45.4 ml/min Est GFR ( Amer) 54.7 ml/min Est GFR (Non-Af Amer) 47.2 ml/min BUN/Creatinine Ratio 16.1 (10-20) Glucose 269 H (70-99(Fasting)) mg/dl Lactate 2.0 (0.4-2.0) mmol/L Calcium 8.9 (8.6-10.3) mg/dl Magnesium 1.9 (1.7-2.4) mg/dl Total Bilirubin 1.1 H (0.2-1.0) mg/dl Direct Bilirubin 0.3 H (0-0.2) mg/dl AST 26 (13-39) U/L ALT 36 (7-52) U/L Alkaline Phosphatase 89 (34-104) U/L Troponin I High Sens 13.9 D (0-20) pg/ml Total Protein 7.3 (6.0-8.3) gm/dl Albumin 4.0 (3.4-5.0) gm/dl Procalcitonin (0-0.5) ng/ml SARS-CoV-2, RNA, NAAT (NEGATIVE) 02/12/23 02/12/23 Range/Units 11:00 11:37 WBC (4.8-10.8) K/ul RBC (4.70-6.10) M/uL Hgb (14.0-18.0) g/dl Hct (42.0-52.0) % MCV (80.0-100.0) fL MCH (25.0-34.0) pg MCHC (32.0-36.0) g/dL RDW Std Deviation (36.4-46.3) fL RDW Coeff of Daria (11.5-14.5) % Plt Count (130-400) K/uL MPV (9.4-12.4) fL Immature Gran % (Auto) % Neut % (Auto) % Lymph % (Auto) % [place] % (Auto) % Eos % (Auto) % Baso % (Auto) % Neut # (Auto) (1.40-6.50) K/uL Lymph # (Auto) (1.2-3.4) K/uL [place] # (Auto) (0.11-0.59) K/uL Eos # (Auto) (0-0.50) K/uL Baso # (Auto) (0-0.2) K/uL Immature Gran # (Auto) (0.01-0.20) K/uL Sodium (136-145) mmol/L Potassium (3.5-5.1) mmol/L Chloride (98-107) mmol/L Carbon Dioxide (21-32) mmol/L Anion Gap (3-11) BUN (6-23) mg/dl Creatinine (0.6-1.4) mg/dl Est Cr Clr Drug Dosing ml/min Est GFR ( Amer) ml/min Est GFR (Non-Af Amer) ml/min BUN/Creatinine Ratio (10-20) Glucose (70-99(Fasting)) mg/dl Lactate (0.4-2.0) mmol/L Calcium (8.6-10.3) mg/dl Magnesium (1.7-2.4) mg/dl Total Bilirubin (0.2-1.0) mg/dl Direct Bilirubin (0-0.2) mg/dl AST (13-39) U/L ALT (7-52) U/L Alkaline Phosphatase (34-104) U/L Troponin I High Sens (0-20) pg/ml Total Protein (6.0-8.3) gm/dl Albumin (3.4-5.0) gm/dl Procalcitonin 1.16 H (0-0.5) ng/ml SARS-CoV-2, RNA, NAAT NEGATIVE (NEGATIVE) MDM Narrative Cardiac monitoring: An order was placed for continuous cardiac monitoring. The monitor shows a rate of 80 with sinus rhythm interpreted by ia External medical records curds were reviewed. Patient was seen in the emergency department last night. He is reporting a fever on and off for the last 5 days and weakness. Patient had blood work done which showed a procalcitonin 0.95. Lactic acid was negative. BioFire was negative. Patient had blood cultures drawn and 4/4 blood cultures showed gram-positive cocci in chains. Discussed with pharmacy and the patient will be admitted and started on Rocephin. Discussed with Rochelle who states to admit to [facility] hospitalist Dr. Curry. Impression & Plan Bacteremia Discharge Plan Visit Data Chief Complaint: Abnormal Labs/Diagnostic Testing Stated Complaint: REF BY DOC, ABNORMAL LABS ED Provider: Sal Keller Discharge Problem: Bacteremia Patient Disposition: Admitted As Inpatient Forms Stand Alone Forms: My [facility] Prescriptions Prescriptions: No Action nitroglycerin 0.4 mg tablet, sublingual 0.4 mg sublingual Q5M PRN (Reason: chest pain) Qty: 75 3RF Rx Instructions: do not exceed 3 doses per episode Trulicity 0.75 mg/0.5 mL pen injector 3 mg subcut WK Rx Instructions: SUNDAYS metformin 500 mg Tablet 500 mg PO BIDM Hold Instructions: Home Medication placed on hold at Doctor's office aspirin [Yunior Low Dose Aspirin] 81 mg Tablet,Delayed Release (Dr/Ec) 81 mg PO HS spironolactone 25 mg Tablet 25 mg PO QAM Hold Instructions: low bp allopurinol 300 mg Tablet 300 mg PO HS docusate sodium [Stool Softener] 100 mg Tablet 200 mg PO BID coQ10 (ubiquinol) 200 mg Capsule 200 mg PO QAM Benefiber Sugar Free (dextrin) 3 gram/3.8 gram Powder 1 packet PO QAM metoprolol succinate [Toprol XL] 100 mg tablet extended release 24 hr 100 mg PO DAILY Qty: 30 6RF clopidogrel [Plavix] 75 mg Tablet 75 mg PO QAM Men's 50 Plus Multivitamin 400-20-370 mcg Tablet 1 tab PO DAILY rosuvastatin 10 mg tablet 10 mg PO 4XWK Rx Instructions: TAKES MON, WED, FRI & SAT. Referrals Referrals: Fadi Scott DO [Primary Care Provider] -
[2023-02-12 13:19] LABS: Estimated Average Glucose 154 mg/dl
[2023-02-12] MEDS ORDERED: SODIUM CHLORIDE 0.9% 1000ML 1,000 ML IV SCH (13:30)
[2023-02-12 13:33] LABS: Appearance Urine Clear (Clear); Bacteria Urine Automated Negative (Negative); Blood Urine Negative (Negative); Color Urine Dark Yellow; Glucose Urine UA Negative (Negative); Ketones Urine Trace (Negative); Leukocyte Esterase Urine Trace (Negative); Nitrite Urine Negative (Negative); Protein Urine 1+ (Negative); RBC Urine Automated 0-4 /hpf (0-4); Specific Gravity Urine 1.025 (1.000-1.030); Urobilinogen Urine Negative (Negative); pH Urine 5.5 (4.5-7.5)
[2023-02-12 13:34] LABS: Bilirubin Urine 1+ (Negative)
--- NOTE | 2023-02-12 14:07 | Electrocardiogram Report ---
Test Reason : Blood Pressure : / mmHG Vent. Rate : 092 BPM Atrial Rate : 092 BPM P-R Int : 152 ms QRS Dur : 106 ms QT Int : 366 ms P-R-T Axes : 055 085 091 degrees QTc Int : 452 ms Normal sinus rhythm Possible Left atrial enlargement Nonspecific ST and T wave abnormality Abnormal ECG When compared with ECG of 11-FEB-2023 18:55, (unconfirmed) No significant change was found Confirmed by Alexx Saucedo ([id number]) on 02/12/2023 2:07:44 PM Referred By: Prasad Mitchell Confirmed By:Alexx Saucedo
[2023-02-12] MEDS ORDERED: DEXTROSE 50% 50 ML SYRINGE IV PRN (14:38)
[2023-02-12] MEDS ORDERED: GLUCAGON FOR INJ 1 MG VIAL SQ PRN (14:38)
[2023-02-12] MEDS ORDERED: PHARMACY GLYCEMIC MGMT CONSULT PRN (14:38)
[2023-02-12] MEDS ORDERED: CARBOHYDRATES FOR HYPOGLYCEMIA PO PRN (14:38)
[2023-02-12] MEDS ORDERED: GLUCOSE 10 TAB/TUBE PO PRN (14:38)
[2023-02-12] MEDS ORDERED: GLUCOSE 40% GEL 15 GM TUBE PO PRN (14:38)
[2023-02-12] MEDS ORDERED: VANCOMYCIN CONSULT ACTIVE PRN (14:45)
[2023-02-12] MEDS ORDERED: VANCOMYCIN HCL 1,750 MG in SODIUM CHLORIDE 0.9% 500 ML IV ONE (14:45)
--- NOTE | 2023-02-12 14:51 | XCELERA ---
[id number]
[2023-02-12] MEDS ORDERED: OPTIRAY 320 100ml IV ONE (15:03)
--- NOTE | 2023-02-12 15:07 | Pharmacy Report ---
Pharmacy Glycemic Short Note 2 - Date of Service February 12, 2023 - Glycemic Short BSG Results (Last 24 hours): 02/12/23 11:00 Glucose 269 H OUTPATIENT ANTIDIABETIC REGIMEN: * Trulicity 3 mg SQ weekly on Sundays * metformin 500 mg BIDM * HbA1C = 7.0% (02/12/23) ASSESSMENT: * Mr Guan is a 77 y/o M with a PMH of T2DM who presents with bacteremia. * BSG @ 1100 on day of admission was 269 mg/dL. * Will order weight-based stress of 1-2 Lantus BID starting at dinnertime instead of bedtime. * Novolog weight-based stress of 2/3. * Hold metformin due to CAMELIA. PLAN FOR INPATIENT GLYCEMIC CONTROL: * Hold outpatient oral diabetes medications * Basal insulin * Lantus 10 units SQ BID (15 units if BSG > 140 mg/dL) * Bolus insulin * NovoLog per scale ACHS or Q6hrs while NPO * Goal Range: Low 110 mg/dL - High 140 mg/dL * Correction Factor: 25 mg/dL/unit * Nutritional / Prandial insulin per carb ratio of 1 unit per 8 grams CHO consumed
--- NOTE | 2023-02-12 15:46 | CT Scan Report ---
CT SCAN OF THE ABDOMEN AND PELVIS COMBO CLINICAL HISTORY: Sepsis. COMPARISON STUDY: Abdominal CT dated 04/13/2014. TECHNIQUE: Before and following the IV administration of 93 cc of Optiray 320, CT scan of the abdome n and pelvis is performed from the lung bases to the proximal femora. Images are reviewed in the axia l, sagittal, and coronal planes. IV contrast was administered without complication. A dose lowering t echnique was utilized adhering to the principles of ALARA. CT DOSE: 7.57 mGy.cm FINDINGS: Lung bases: The patient is status post midline sternotomy. The heart is normal in size and without pe ricardial effusion. The coronary arteries are densely calcified. The lung bases are clear noting depe ndent scarring/atelectasis. There is a small hiatal hernia. Liver: The contrast-enhanced liver is normal in size, contour, and attenuation. There is no intrahepa tic biliary ductal dilatation. The hepatic veins and portal veins are patent. Gallbladder: There are calcified gallstones with no CT evidence of acute cholecystitis. Spleen: Normal in size and attenuation. Pancreas: Scattered parenchymal calcifications could be seen with chronic pancreatitis. The pancreas is otherwise normal as imaged. Adrenal glands: Unremarkable. Kidneys: The contrast enhanced kidneys are normal in size and without hydronephrosis. The kidneys enh ance symmetrically. There is a 3 mm nonobstructing right renal calculus. No left ureteral calculi are identified and there is no ureteral stone A 9 mm cortical calcification is seen in the left upper po le. A 4.1 cm cyst is noted on the left. Abdominal vasculature: The abdominal aorta is normal in course and caliber noting advanced atheroscle rotic calcification. Bowel: There is no bowel obstruction. The appendix is well-visualized and normal. Peritoneum: No intraperitoneal free air seen. There is trace pelvic ascites. There is a fat-containin g umbilical hernia. Lymphadenopathy: None. Pelvic viscera: The prostate gland is enlarged and heterogeneous. The bladder wall is thickened/trabe culated indicating chronic outlet obstruction. Skeletal structures: The skeletal structures are osteopenic. There is mild lumbosacral spondylosis. N o lytic or blastic lesions are seen. IMPRESSION: 1. There are no acute infectious or inflammatory findings in the abdomen or pelvis. 2. Cholelithiasis and right-sided nephrolithiasis. 3. Trace pelvic ascites. 4. Additional findings as above. ACT 112: Negative or not required by law. Electronically signed by: Wander Ochoa M.D. 02/12/2023 3:44 PM
--- NOTE | 2023-02-12 16:00 | CT Scan Report ---
CT head/brain wo con CLINICAL HISTORY: 77 years-old Male with headache. Acute headache TECHNIQUE: Multiple axial CT images of the head were obtained without contrast. A dose lowering tech nique was utilized adhering to the principles of ALARA. CT DOSE: 3024.27 mGy.cm COMPARISON: 12/11/2009. FINDINGS: No acute intracranial hemorrhage, midline shift, intracranial mass, hydrocephalus, territorial ischem ia or abnormal extra-axial collection. Involutional changes with mild chronic microvascular ischemic disease. Cerebral vascular calcifications. The calvarium is intact. Mastoid air cells are clear. Mild mucosal thickening of the ethmoid sinuses . IMPRESSION: No acute intracranial abnormality. ACT 112: Negative or not required by law. The above report was generated using voice recognition software. It may contain grammatical, syntax o r spelling errors. Electronically signed by: Lukasz Castellano M.D. 02/12/2023 3:59 PM
[2023-02-12 16:38] LABS: BUN Creatinine Ratio 16.7 (10-20); Calcium 8.6 mg/dl (8.6-10.3); Creatinine Clr Calc Pharmacy 51.5 ml/min; Est GFR (African American) 63.8 ml/min; Potassium 4.2 mmol/L (3.5-5.1)
[2023-02-12 16:49] LABS: INR 1.1 (0.9-1.1); Prothrombin Time 12.1 Seconds (9.0-12.0)
[2023-02-12] MEDS: INSULIN ASPART PER UNIT CHARGE SC SCH ×2 (17:16→20:43)
[2023-02-12] MEDS: LANTUS PER UNIT CHARGE SQ SCH (17:17)
[2023-02-12] MEDS: allopurinoL 300 MG TAB PO SCH (20:42)
[2023-02-12] MEDS: ASPIRIN 81 MG ECTAB PO SCH (20:43)
[2023-02-12] MEDS: DOCUSATE SODIUM 100 MG CAP PO SCH (20:44)
[2023-02-12] MEDS: cefTRIAXone SODIUM 2,000 MG in DEXTROSE 5% 50 ML IV SCH (22:35)
[2023-02-13 00:24] LABS: Adenovirus F 40/41 PCR Not Detected (NotDetected); Astrovirus PCR Not Detected (NotDetected); Campylobacter PCR Not Detected (NotDetected); Cryptosporidium PCR Not Detected (NotDetected); Cyclospora cayetanensis PCR Not Detected (NotDetected); Entamoeba histolytica PCR Not Detected (NotDetected); Enteroaggregative E.coli(EAEC) Not Detected (NotDetected); Enteropathogenic E.coli (EPEC) Not Detected (NotDetected); Enterotoxigenic E.coli (ETEC) Not Detected (NotDetected); Giardia lamblia PCR Not Detected (NotDetected); Norovirus GI/GII PCR Not Detected (NotDetected); Plesiomonas shigelloides PCR Not Detected (NotDetected); Rotavirus A PCR Not Detected (NotDetected); Salmonella PCR Not Detected (NotDetected); Sapovirus PCR Not Detected (NotDetected); Shiga-like Toxin E.coli (STEC) Not Detected (NotDetected); Shigella/Enteroinvasive E.coli Not Detected (NotDetected); Vibrio cholerae PCR Not Detected (NotDetected); Vibrio species PCR Not Detected (NotDetected); Yersinia enterocolitica PCR Not Detected (NotDetected)
[2023-02-13] MEDS ORDERED: MELATONIN 3 MG TAB PO PRN (00:50)
[2023-02-13 07:49] LABS: Hematocrit (blood only) 37.1 % (42.0-52.0); Hemoglobin 13.3 g/dl (14.0-18.0); Mean Corpuscular Hemoglobin 33.7 pg (25.0-34.0); Mean Corpuscular Hgb Conc 35.8 g/dL (32.0-36.0); Mean Corpuscular Volume 93.9 fL (80.0-100.0); Platelet Count 164 K/uL (130-400); RDW Coefficient of Variation 12.7 % (11.5-14.5); RDW Standard Deviation 43.8 fL (36.4-46.3); Red Blood Count 3.95 M/uL (4.70-6.10)
[2023-02-13] MEDS ORDERED: cefTRIAXone SODIUM 2,000 MG in DEXTROSE 5% 50 ML IV SCH (08:00)
[2023-02-13] MEDS: INSULIN ASPART PER UNIT CHARGE SC SCH ×4 (08:03→20:40)
[2023-02-13 08:06] LABS: BUN Creatinine Ratio 16.4 (10-20); Est GFR (African American) 75.2 ml/min; Est GFR (Non-African American) 64.9 ml/min; Phosphorus 3.3 mg/dl (2.5-4.9)
[2023-02-13] MEDS: METOPROLOL SUCC 50MG EXT REL TAB PO SCH (08:34)
[2023-02-13] MEDS: LANTUS PER UNIT CHARGE SQ SCH (08:35)
[2023-02-13] MEDS: CLOPIDOGREL BISULFATE 75 MG TAB PO SCH (08:35)
[2023-02-13] MEDS: SPIRONOLACTONE 25 MG TAB PO SCH (08:35)
[2023-02-13] MEDS: DOCUSATE SODIUM 100 MG CAP PO SCH ×2 (08:35→20:40)
[2023-02-13] MEDS: cefTRIAXone SODIUM 2,000 MG in DEXTROSE 5% 50 ML IV SCH (11:21)
--- NOTE | 2023-02-13 11:23 | Pharmacy Report ---
Pharmacy Glycemic Short Note 2 - Date of Service February 13, 2023 - Glycemic Short BSG Results (Last 24 hours): 02/12/23 02/12/23 02/12/23 11:00 15:56 16:55 Glucose 269 H 164 H POC Glucose 157 H 02/12/23 02/13/23 02/13/23 19:47 07:14 07:24 Glucose 121 H POC Glucose 171 H 120 H 02/13/23 11:14 Glucose POC Glucose 134 H OUTPATIENT ANTIDIABETIC REGIMEN: * Trulicity 3 mg SQ weekly on Sundays * metformin 500 mg BIDM * HbA1C = 7.0% (02/12/23) ASSESSMENT: 02/13 * Patient received total of 24 units of insulin yesterday, of which 15 units were basal insulin * Fasting BSG 120 mg/dL - plan to continue with scale of 10-15 units once daily today * No change to CF/CR 02/12 * Mr Guan is a 77 y/o M with a PMH of T2DM who presents with bacteremia. * BSG @ 1100 on day of admission was 269 mg/dL. * Will order weight-based stress of 1-2 Lantus BID starting at dinnertime instead of bedtime. * Novolog weight-based stress of 2/3. * Hold metformin due to CAMELIA. PLAN FOR INPATIENT GLYCEMIC CONTROL: * Hold outpatient oral diabetes medications * Basal insulin * Lantus 10-15 units once daily * Bolus insulin * NovoLog per scale ACHS or Q6hrs while NPO * Goal Range: Low 110 mg/dL - High 140 mg/dL * Correction Factor: 25 mg/dL/unit * Nutritional / Prandial insulin per carb ratio of 1 unit per 8 grams CHO consumed
--- NOTE | 2023-02-13 15:43 | Hospitalist Progress Note ---
Date of Service February 13, 2023 Assessment & Plan (1) Bacteremia: (2) CAMELIA (acute kidney injury): (3) History of coronary artery bypass graft x 3: (4) S/P drug eluting coronary stent placement: (5) S/P aortic valve replacement with bioprosthetic valve: (6) Hypertension: (7) Hyperlipidemia: (8) Diabetes mellitus, type 2: (9) Chronic kidney disease, stage 3: (10) CHAMPAGNE (nonalcoholic steatohepatitis): Plan Per admitting service notes with addendum: 77 year old presents with CHRISTOPHER and fever that has persisted over the past few days. Yesterday his temperature went up to 104 and has responded to Tylenol. He presented to the ED yesterday and had a workup including BC that returned 11/28 gram + strep. Streptococcus PCR (+). No leukocytosis. Hypona+ worsening CAMELIA 1.1--> 1.43 in 24 hours. Pt had CABG x3 and AVR in 2009; will obtain ECHO to r/o IE. On Plavix + ASA. Lacate 2.0, Procal increased from yesterday. consider LP. H/O renal lesions as outlined below. 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 Saucedo, relayed infectious disease service recommendations, however MARIA ELENA not recommended at this point, as this will not change the management, valvular abnormalities requiring surgical intervention not suspected at this point Repeat blood cultures for tomorrow ordered Once blood cultures negative, place PICC line for IV ceftriaxone 2 g daily CAMELIA on CKD Stage III: Suspect related to dehydration and illness Creatinine normalized Renal ultrasound in 2014: Medial left renal lesion seen on CT is not appreciated on ultrasound. Suggest MRI or CT via renal mass. Right Kidney: Normal size and echotexture. The right kidney measures 11.5 x 6.0 x 5.7 cm. Left Kidney: Normal size and echotexture. The left kidney measures 11.5 x 6.3 x 5.1 cm. Superior pole cyst measuring approximately 2.[address] performed 2014: showed decrease in lesion size Abd/pelvic CT: 1. There are no acute infectious or inflammatory findings in the abdomen or pelvis. 2. Cholelithiasis and right-sided nephrolithiasis. 3. Trace pelvic ascites. History of CABG x3: Status post drug-eluting stent: Status post AVR with p.o. bioprosthetic valve: Performed 2009; follows with Dr. Harper HTN: Takes metoprolol and Coreg; continue HLD: Takes rosuvastatin; continue Last lipid panel 11/08/2022; TG 167, HDL 71, LDL 104 Diabetes mellitus type 2: Wpu-kpqaufs-crjjeuqzw Takes Trulicity and Metformin; hold while inpatient Insulin sliding scale H/O CHAMPAGNE: TBili: 1.1, direct bili 0.3 No transaminitis Disposition: PCP: Dr. Powell Anticipate discharge to home medically stable, with IV ceftriaxone Code Status: Full Code VTE Prophylaxis: Teds/SCDs for now. plan of care discussed with patient in detail and at length all questions answered he is understanding, agreeable, comfortable with the plan of care Admission and Anticipated Discharge Date Admission Date: February 12, 2023 Subjective Follow-up for Streptococcus bacteremia, etc. seen resting in bed, comfortable In good spirits, very pleasant States he feels fine overall Headache improving, no neck pain Denies fevers or chills, chest pain, shortness of breath, palpitations, dizziness Appetite is good No problems with urination or bowel movement No other symptoms Review of Systems Review of Systems: all noted and negative except for above Physical Exam Physical Exam: General- oriented x 3, not in distress, speaks in sentences with no effort or accessory muscle use Head- atraumatic Eyes- PERRL, EOMI, anicteric ENT- oropharynx clear Neck- supple, no JVD, no adenopathy, no thyromegaly; carotids +2/2, no bruits appreciated Lungs- clear to auscultation bilaterally, no rales/wheezes Heart- normal rate, regular rhythm; no murmur, no gallop, no rub appreciated Abdomen- normal bowel sounds, nondistended, soft, nontender, no masses or hepatosplenomegaly Extremities- no pretibial edema, no calf tenderness; peripheral pulses intact Neuro- alert, oriented x 3; CN 2-12 grossly intact; motor 5/5 bilaterally;sensation 100% on all extremities; no other gross focal neurologic deficits Skin- warm & dry Results & Data Results & Data Vital Signs (Past 12 Hours) Vital Signs Temp Pulse Pulse Resp BP Pulse Ox O2 Del Method 02/13/23 14:49 36.5 C 81 18 126/72 98 Room Air 02/13/23 11:16 36.3 C L 83 18 111/71 96 Room Air 02/13/23 07:27 36.6 C 84 18 112/72 96 Room Air 02/13/23 04:00 36.8 C 86 18 122/67 97 Room Air all noted and reviewed including below
[2023-02-13] MEDS: allopurinoL 300 MG TAB PO SCH (20:39)
[2023-02-13] MEDS: ASPIRIN 81 MG ECTAB PO SCH (20:40)
[2023-02-14 07:15] LABS: Basophils # (auto) 0.03 K/uL (0-0.2); Basophils % (auto) 0.6 %; Eosinophils # (auto) 0.34 K/uL (0-0.50); Eosinophils % (auto) 6.8 %; Hematocrit (blood only) 38.2 % (42.0-52.0); Hemoglobin 13.4 g/dl (14.0-18.0); Immature Granulocytes # (auto) 0.02 K/uL (0.01-0.20); Immature Granulocytes % (auto) 0.4 %; Lymphocytes # (auto) 1.59 K/uL (1.2-3.4); Lymphocytes % (auto) 31.7 %; Mean Corpuscular Hemoglobin 33.5 pg (25.0-34.0); Mean Corpuscular Hgb Conc 35.1 g/dL (32.0-36.0); Mean Corpuscular Volume 95.5 fL (80.0-100.0); Mean Platelet Volume 9.5 fL (9.4-12.4); Monocytes # (auto) 0.54 K/uL (0.11-0.59); Monocytes % (auto) 10.8 %; Neutrophils % (auto) 49.7 %; Platelet Count 173 K/uL (130-400); RDW Coefficient of Variation 12.7 % (11.5-14.5); RDW Standard Deviation 44.1 fL (36.4-46.3); White Blood Count 5.02 K/ul (4.8-10.8)
[2023-02-14 07:32] LABS: BUN Creatinine Ratio 17.1 (10-20); Calcium 9.3 mg/dl (8.6-10.3); Creatinine Clr Calc Pharmacy 61.8 ml/min; Est GFR (African American) 79.5 ml/min; Est GFR (Non-African American) 68.6 ml/min; Potassium 4.3 mmol/L (3.5-5.1)
[2023-02-14] MEDS: LANTUS PER UNIT CHARGE SQ SCH (08:09)
[2023-02-14] MEDS: INSULIN ASPART PER UNIT CHARGE SC SCH ×4 (08:09→21:35)
[2023-02-14] MEDS: DOCUSATE SODIUM 100 MG CAP PO SCH ×2 (08:12→21:38)
[2023-02-14] MEDS: CLOPIDOGREL BISULFATE 75 MG TAB PO SCH (08:12)
[2023-02-14] MEDS: cefTRIAXone SODIUM 2,000 MG in DEXTROSE 5% 50 ML IV SCH (08:12)
[2023-02-14] MEDS: SPIRONOLACTONE 25 MG TAB PO SCH (08:12)
[2023-02-14] MEDS: METOPROLOL SUCC 50MG EXT REL TAB PO SCH (08:13)
[2023-02-14] MEDS: ROSUVASTATIN CALCIUM 10 MG TAB PO SCH (08:13)
[2023-02-14] MEDS ORDERED: LANTUS PER UNIT CHARGE SQ SCH (09:00)
--- NOTE | 2023-02-14 11:25 | Hospitalist Progress Note ---
Date of Service February 14, 2023 Assessment & Plan (1) Bacteremia: (2) CAMELIA (acute kidney injury): (3) History of coronary artery bypass graft x 3: (4) S/P drug eluting coronary stent placement: (5) S/P aortic valve replacement with bioprosthetic valve: (6) Hypertension: (7) Hyperlipidemia: (8) Diabetes mellitus, type 2: (9) Chronic kidney disease, stage 3: (10) CHAMPAGNE (nonalcoholic steatohepatitis): Plan Mr Poncho Guan is a 77 year old presents with headache and fever found to have streptococcus bacteremia, hyponatremia and CAMELIA. Patient with history significant for bioprosthetic aortic valve, CABG x 3. 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 Saucedo, relayed infectious disease service recommendations. Cardiology does not recommend MARIA ELENA at this point. Once blood cultures negative x 72 hours, will place PICC line for IV ceftriaxone 2 g daily. Will need weekly CBC, BMP. Plan for at least 6 weeks IV antibiotics CAMELIA on CKD Stage III: Suspect related to dehydration and illness Creatinine normalized Renal ultrasound in 2015: Medial left renal lesion seen on CT is not appreciated on ultrasound. Suggest MRI or CT via renal mass. Right Kidney: Normal size and echotexture. The right kidney measures 11.5 x 6.0 x 5.7 cm. Left Kidney: Normal size and echotexture. The left kidney measures 11.5 x 6.3 x 5.1 cm. Superior pole cyst measuring approximately 2.[address] performed 2014: showed decrease in lesion size Abd/pelvic CT: 1. There are no acute infectious or inflammatory findings in the abdomen or pelvis. 2. Cholelithiasis and right-sided nephrolithiasis. 3. Trace pelvic ascites. History of CABG x3: Status post drug-eluting stent: Status post AVR with p.o. bioprosthetic valve: Performed 2009; follows with Dr. Zota HTN: Takes metoprolol and Coreg; continue HLD: Takes rosuvastatin; continue Last lipid panel 11/08/2022; TG 167, HDL 71, LDL 104 Diabetes mellitus type 2: [id number]-shryxsaqe Takes Trulicity and Metformin; hold while inpatient Insulin sliding scale H/O CHAMPAGNE: TBili: 1.1, direct bili 0.3 No transaminitis Disposition: PCP: Dr. Powell Anticipate discharge to home medically stable, with IV ceftriaxone Code Status: Full Code VTE Prophylaxis: Teds/SCDs for now. Start SQ heparin Admission and Anticipated Discharge Date Admission Date: February 12, 2023 Subjective Feels well. No fever/chills Ambulating in room independently with no difficulty Review of Systems Review of Systems: As above Physical Exam Physical Exam: Appears well, younger than stated age, pleasant and comfortable Respiratory: Breathing comfortably on room air, no wheezing/rhonchi/rales Cardiovascular: Regular rate and rhythm, no murmurs/rubs/gallops Gastrointestinal (Abdomen): soft, non tender, non distended Musculoskeletal: No edema Neurologic: awake, alert, spontaneously moving extremities Results & Data Results & Data Vital Signs (Past 12 Hours) Vital Signs Temp Pulse Pulse Resp BP Pulse Ox O2 Del Method 02/14/23 07:30 78 02/14/23 08:01 36.5 C 80 18 125/74 97 Room Air 02/14/23 03:52 36.2 C L 80 18 131/74 02/14/23 00:40 83
[2023-02-14] MEDS: ASPIRIN 81 MG ECTAB PO SCH (21:37)
[2023-02-14] MEDS: allopurinoL 300 MG TAB PO SCH (21:37)
[2023-02-14] MEDS: HEPARIN SOD 5,000 UNIT/0.5 ML VIAL SQ SCH (21:38)
[2023-02-15] MEDS: INSULIN ASPART PER UNIT CHARGE SC SCH ×4 (08:01→21:02)
[2023-02-15] MEDS: cefTRIAXone SODIUM 2,000 MG in DEXTROSE 5% 50 ML IV SCH (08:01)
[2023-02-15] MEDS: SPIRONOLACTONE 25 MG TAB PO SCH (08:02)
[2023-02-15] MEDS: DOCUSATE SODIUM 100 MG CAP PO SCH ×2 (08:02→21:05)
[2023-02-15] MEDS: HEPARIN SOD 5,000 UNIT/0.5 ML VIAL SQ SCH ×3 (08:02→20:00)
[2023-02-15] MEDS: LANTUS PER UNIT CHARGE SQ SCH (08:02)
[2023-02-15] MEDS: CLOPIDOGREL BISULFATE 75 MG TAB PO SCH (08:02)
[2023-02-15] MEDS: METOPROLOL SUCC 50MG EXT REL TAB PO SCH (08:03)
--- NOTE | 2023-02-15 10:42 | Pharmacy Report ---
Pharmacy Glycemic Short Note 2 - Date of Service February 15, 2023 - Glycemic Short BSG Results (Last 24 hours): 02/14/23 02/14/23 02/14/23 11:17 16:38 20:22 POC Glucose 158 H 128 H 148 H 02/15/23 07:19 POC Glucose 125 H OUTPATIENT ANTIDIABETIC REGIMEN: * Trulicity 3 mg SQ weekly on Sundays * metformin 500 mg BIDM * HbA1C = 7.0% (02/12/23) ASSESSMENT: 02/15/23 * BSGs yesterday were [phone] mg/dL. Patient received 25 units of insulin (7 units of basal and 18 units of bolus). * Fasting today is 125 mg/dL which is steady. Lantus was decreased yesterday due to fasting trending down (120 --> 109). Will all a 10% increase if fasting continues to trend upwards. * Continue Novolog. BSGs are steady. 02/13 * Patient received total of 24 units of insulin yesterday, of which 15 units were basal insulin * Fasting BSG 120 mg/dL - plan to continue with scale of 10-15 units once daily today * No change to CF/CR 02/12 * Mr Freida is a 77 y/o M with a PMH of T2DM who presents with bacteremia. * BSG @ 1100 on day of admission was 269 mg/dL. * Will order weight-based stress of 1-2 Lantus BID starting at dinnertime instead of bedtime. * Novolog weight-based stress of 2/3. * Hold metformin due to CAMELIA. PLAN FOR INPATIENT GLYCEMIC CONTROL: * Hold outpatient oral diabetes medications * Basal insulin * Lantus 7 units once daily (9 units if BSG > 140) * Bolus insulin * NovoLog per scale ACHS or Q6hrs while NPO * Goal Range: Low 110 mg/dL - High 140 mg/dL * Correction Factor: 25 mg/dL/unit * Nutritional / Prandial insulin per carb ratio of 1 unit per 8 grams CHO consumed
--- NOTE | 2023-02-15 14:54 | Hospitalist Progress Note ---
Date of Service February 15, 2023 Assessment & Plan (1) Bacteremia: (2) CAMELIA (acute kidney injury): (3) History of coronary artery bypass graft x 3: (4) S/P drug eluting coronary stent placement: (5) S/P aortic valve replacement with bioprosthetic valve: (6) Hypertension: (7) Hyperlipidemia: (8) Diabetes mellitus, type 2: (9) Chronic kidney disease, stage 3: (10) CHAMPAGNE (nonalcoholic steatohepatitis): Plan Mr Poncho Guan is a 77 year old presents with headache and fever found to have streptococcus bacteremia, hyponatremia and CAMELIA. Patient with history significant for bioprosthetic aortic valve, CABG x 3. 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 Saucedo, relayed infectious disease service recommendations. Cardiology does not recommend MARIA ELENA at this point. Once blood cultures negative x 72 hours, will place PICC line for IV ceftriaxone 2 g daily. Will need weekly CBC, BMP. Plan for at least 6 weeks IV antibiotics CAMELIA on CKD Stage III: Suspect related to dehydration and illness Creatinine normalized Renal ultrasound in 2015: Medial left renal lesion seen on CT is not appreciated on ultrasound. Suggest MRI or CT via renal mass. Right Kidney: Normal size and echotexture. The right kidney measures 11.5 x 6.0 x 5.7 cm. Left Kidney: Normal size and echotexture. The left kidney measures 11.5 x 6.3 x 5.1 cm. Superior pole cyst measuring approximately 2.[address] performed 2015: showed decrease in lesion size Abd/pelvic CT: 1. There are no acute infectious or inflammatory findings in the abdomen or pelvis. 2. Cholelithiasis and right-sided nephrolithiasis. 3. Trace pelvic ascites. History of CABG x3: Status post drug-eluting stent: Status post AVR with p.o. bioprosthetic valve: Performed 2009; follows with Dr. Harper HTN: Takes metoprolol and Coreg; continue HLD: Takes rosuvastatin; continue Last lipid panel 11/08/2022; TG 167, HDL 71, LDL 104 Diabetes mellitus type 2: Wiv-kfmsupf-woiragoeb Takes Trulicity and Metformin; hold while inpatient Insulin sliding scale H/O CHAMPAGNE: TBili: 1.1, direct bili 0.3 No transaminitis Disposition: PCP: Dr. Powell Anticipate discharge to home medically stable, with IV ceftriaxone Code Status: Full Code VTE Prophylaxis: Teds/SCDs for now. Start SQ heparin Admission and Anticipated Discharge Date Admission Date: February 12, 2023 Subjective Remains afebrile Patient is doing well. Anxious to return home Review of Systems Review of Systems: As above Physical Exam Physical Exam: Appears well, pleasant and comfortable Respiratory: breathing comfortably on room air, no wheezing/rhonchi Cardiovascular: regular rate and rhythm, no murmurs/rubs Gastrointestinal (Abdomen): soft, non tender Musculoskeletal: No edema Neurologic: awake, alert, spontaneously moving extremities Results & Data Results & Data Vital Signs (Past 12 Hours) Vital Signs Temp Pulse Pulse Resp BP Pulse Ox O2 Del Method 02/15/23 11:25 36.5 C 83 20 117/77 96 Room Air 02/15/23 07:52 36.6 C 85 18 123/72 97 Room Air 02/15/23 07:21 87 02/15/23 03:07 36.8 C 77 20 111/66 97 Room Air
[2023-02-15] MEDS: allopurinoL 300 MG TAB PO SCH (21:05)
[2023-02-15] MEDS: ASPIRIN 81 MG ECTAB PO SCH (21:05)
[2023-02-16 07:15] LABS: Basophils # (auto) 0.05 K/uL (0-0.2); Basophils % (auto) 0.7 %; Eosinophils # (auto) 0.41 K/uL (0-0.50); Eosinophils % (auto) 5.5 %; Hematocrit (blood only) 41.3 % (42.0-52.0); Hemoglobin 14.6 g/dl (14.0-18.0); Immature Granulocytes # (auto) 0.02 K/uL (0.01-0.20); Immature Granulocytes % (auto) 0.3 %; Lymphocytes # (auto) 1.69 K/uL (1.2-3.4); Lymphocytes % (auto) 22.8 %; Mean Corpuscular Hemoglobin 33.5 pg (25.0-34.0); Mean Corpuscular Hgb Conc 35.4 g/dL (32.0-36.0); Mean Corpuscular Volume 94.7 fL (80.0-100.0); Mean Platelet Volume 9.3 fL (9.4-12.4); Monocytes % (auto) 10.8 %; Neutrophils # (auto) 4.43 K/uL (1.40-6.50); Neutrophils % (auto) 59.9 %; Platelet Count 234 K/uL (130-400); RDW Coefficient of Variation 12.6 % (11.5-14.5); RDW Standard Deviation 43.6 fL (36.4-46.3); Red Blood Count 4.36 M/uL (4.70-6.10)
[2023-02-16 07:37] LABS: BUN Creatinine Ratio 14.4 (10-20); Calcium 9.4 mg/dl (8.6-10.3); Creatinine Clr Calc Pharmacy 49.2 ml/min; Est GFR (African American) 60.3 ml/min; Potassium 4.7 mmol/L (3.5-5.1)
[2023-02-16] MEDS: INSULIN ASPART PER UNIT CHARGE SC SCH ×4 (09:20→20:30)
[2023-02-16] MEDS: LANTUS PER UNIT CHARGE SQ SCH (09:21)
[2023-02-16] MEDS: CLOPIDOGREL BISULFATE 75 MG TAB PO SCH (09:22)
[2023-02-16] MEDS: DOCUSATE SODIUM 100 MG CAP PO SCH ×2 (09:22→20:34)
[2023-02-16] MEDS: ROSUVASTATIN CALCIUM 10 MG TAB PO SCH (09:23)
[2023-02-16] MEDS: HEPARIN SOD 5,000 UNIT/0.5 ML VIAL SQ SCH ×2 (09:23→20:30)
[2023-02-16] MEDS: SPIRONOLACTONE 25 MG TAB PO SCH (09:23)
[2023-02-16] MEDS: METOPROLOL SUCC 50MG EXT REL TAB PO SCH (09:23)
[2023-02-16] MEDS: cefTRIAXone SODIUM 2,000 MG in DEXTROSE 5% 50 ML IV SCH (09:26)
--- NOTE | 2023-02-16 11:03 | Hospitalist Progress Note ---
Date of Service February 16, 2023 Assessment & Plan (1) Bacteremia: (2) CAMELIA (acute kidney injury): (3) History of coronary artery bypass graft x 3: (4) S/P drug eluting coronary stent placement: (5) S/P aortic valve replacement with bioprosthetic valve: (6) Hypertension: (7) Hyperlipidemia: (8) Diabetes mellitus, type 2: (9) Chronic kidney disease, stage 3: (10) CHAMPAGNE (nonalcoholic steatohepatitis): Plan Mr Poncho Guan is a 77 year old presents with headache and fever found to have streptococcus bacteremia, hyponatremia and CAMELIA. Patient with history significant for bioprosthetic aortic valve, CABG x 3. 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 Saucedo, relayed infectious disease service recommendations. Cardiology does not recommend MARIA ELENA at this point. Once blood cultures negative x 72 hours, will place PICC line for IV ceftriaxone 2 g daily. Will need weekly CBC, BMP. Plan for at least 6 weeks IV antibiotics CAMELIA on CKD Stage III: Suspect related to dehydration and illness Creatinine normalized Renal ultrasound in 2015: Medial left renal lesion seen on CT is not appreciated on ultrasound. Suggest MRI or CT via renal mass. Right Kidney: Normal size and echotexture. The right kidney measures 11.5 x 6.0 x 5.7 cm. Left Kidney: Normal size and echotexture. The left kidney measures 11.5 x 6.3 x 5.1 cm. Superior pole cyst measuring approximately 2.[address] performed 2015: showed decrease in lesion size Abd/pelvic CT: 1. There are no acute infectious or inflammatory findings in the abdomen or pelvis. 2. Cholelithiasis and right-sided nephrolithiasis. 3. Trace pelvic ascites. History of CABG x3: Status post drug-eluting stent: Status post AVR with p.o. bioprosthetic valve: Performed 2009; follows with Dr. Harper HTN: Takes metoprolol and Coreg; continue HLD: Takes rosuvastatin; continue Last lipid panel 11/08/2022; TG 167, HDL 71, LDL 104 Diabetes mellitus type 2: [id number]-dssqizpaa Takes Trulicity and Metformin; hold while inpatient Insulin sliding scale H/O CHAMPAGNE: TBili: 1.1, direct bili 0.3 No transaminitis Disposition: PCP: Dr. Powell Anticipate discharge to home after PICC line is placed tomorrow Code Status: Full Code VTE Prophylaxis: Teds/SCDs for now. SQ heparin is ordered but patient has been declining it and is instead ambulating in hallways Admission and Anticipated Discharge Date Admission Date: February 12, 2023 Subjective Feels well. No fever/chills. Ambulating in hallway with no difficulty Review of Systems Review of Systems: as above Physical Exam Physical Exam: Pleasant, comfortable, no acute distress Respiratory: breathing comfortably on room air, no wheezing/rhonchi/rales Cardiovascular: regular rate and rhythm, slight +systolic murmur Gastrointestinal (Abdomen): soft, non tender, non distended Musculoskeletal: no edema Neurologic: awake, alert, spontaneously moving extremities Results & Data Results & Data Vital Signs (Past 12 Hours) Vital Signs Temp Pulse Pulse Resp BP BP Pulse Ox 02/16/23 07:20 36.5 C 93 H 16 138/76 98 02/16/23 07:26 02/16/23 06:01 77 02/16/23 03:04 36.5 C 82 18 149/81 H 97 02/15/23 23:45 36.8 C 82 20 123/79 94 O2 Del Method 02/16/23 07:20 Room Air 02/16/23 07:26 Room Air 02/16/23 06:01 02/16/23 03:04 Room Air 02/15/23 23:45 Room Air
[2023-02-16] MEDS: ASPIRIN 81 MG ECTAB PO SCH (20:35)
[2023-02-16] MEDS: allopurinoL 300 MG TAB PO SCH (20:35)
[2023-02-17] MEDS ORDERED: METOPROLOL TARTRATE 25 MG TAB PO STA (04:41)
[2023-02-17] MEDS ORDERED: SODIUM CHLORIDE 0.9% 1000ML 1,000 ML IV ONE (04:42)
[2023-02-17] MEDS ORDERED: MAGNESIUM SULFATE / D5W 1 GM/100 ML BAG IV ONE (05:00)
[2023-02-17 06:37] LABS: Basophils # (auto) 0.07 K/uL (0-0.2); Basophils % (auto) 0.8 %; Eosinophils # (auto) 0.34 K/uL (0-0.50); Eosinophils % (auto) 3.9 %; Hematocrit (blood only) 42.1 % (42.0-52.0); Hemoglobin 14.9 g/dl (14.0-18.0); Immature Granulocytes # (auto) 0.06 K/uL (0.01-0.20); Immature Granulocytes % (auto) 0.7 %; Lymphocytes # (auto) 1.57 K/uL (1.2-3.4); Lymphocytes % (auto) 18.2 %; Mean Corpuscular Hemoglobin 33.9 pg (25.0-34.0); Mean Corpuscular Hgb Conc 35.4 g/dL (32.0-36.0); Mean Corpuscular Volume 95.7 fL (80.0-100.0); Mean Platelet Volume 9.3 fL (9.4-12.4); Monocytes # (auto) 0.78 K/uL (0.11-0.59); Monocytes % (auto) 9.1 %; Neutrophils # (auto) 5.79 K/uL (1.40-6.50); Neutrophils % (auto) 67.3 %; Platelet Count 261 K/uL (130-400); RDW Coefficient of Variation 12.5 % (11.5-14.5); RDW Standard Deviation 43.7 fL (36.4-46.3); White Blood Count 8.61 K/ul (4.8-10.8)
[2023-02-17 06:45] LABS: Calcium 9.4 mg/dl (8.6-10.3); Creatinine Clr Calc Pharmacy 53.2 ml/min; Est GFR (African American) 66.3 ml/min; Est GFR (Non-African American) 57.2 ml/min; Magnesium 2.1 mg/dl (1.7-2.4); Potassium 4.1 mmol/L (3.5-5.1)
[2023-02-17] MEDS: DOCUSATE SODIUM 100 MG CAP PO SCH (08:38)
[2023-02-17] MEDS: cefTRIAXone SODIUM 2,000 MG in DEXTROSE 5% 50 ML IV SCH (08:38)
[2023-02-17] MEDS: METOPROLOL SUCC 50MG EXT REL TAB PO SCH (08:39)
[2023-02-17] MEDS: ROSUVASTATIN CALCIUM 10 MG TAB PO SCH (08:39)
[2023-02-17] MEDS: SPIRONOLACTONE 25 MG TAB PO SCH (08:39)
[2023-02-17] MEDS: HEPARIN SOD 5,000 UNIT/0.5 ML VIAL SQ SCH (08:39)
[2023-02-17] MEDS: CLOPIDOGREL BISULFATE 75 MG TAB PO SCH (08:39)
[2023-02-17] MEDS: INSULIN ASPART PER UNIT CHARGE SC SCH (09:22)
[2023-02-17] MEDS: LANTUS PER UNIT CHARGE SQ SCH (09:23)
--- NOTE | 2023-02-17 11:11 | XRay Report ---
XR chest 1V portable CLINICAL HISTORY: confirm placement of PICC TECHNIQUE: Single frontal radiograph of the chest was obtained. Comparison: Comparison is made to chest radiograph 02/11/2023 FINDINGS: Median sternotomy wires are unchanged. A right PICC terminates in the mid SVC. Cardiomegaly is noted. The lungs are clear. No evidence of pleural effusion or pneumothorax. IMPRESSION: Right PICC terminates in the mid SVC. ACT 112: Negative or not required by law. Electronically signed by: Ivan De La Fuente M.D. 02/17/2023 11:09 AM
--- NOTE | 2023-02-18 18:44 | Discharge Summary ---
Date of Service February 18, 2023 Admission HPI Per Admitting Provider Mr. Guan is a 77-year-old male that presented to the [facility] ED today after results of his blood cultures came back gram-positive cocci in clusters and Streptococcus PCR positive that were drawn yesterday 02/11/23. He was seen in the ER yesterday for headache, fever, and achiness. Work-up was negative at that time; however, blood cultures came back positive today so he was advised to present to the ED. Patient states that he is feeling improved today compared to yesterday. No leukocytosis WBC 6.93, procalcitonin yesterday 0.95 and has increased today to 1.16. Hyponatremic sodium 131, CAMELIA creatinine 1.43; baseline 1.1. CXR today negative for acute cardiopulmonary disease. As cultures returned positive < 24 hours; higher concern for ruling out cause. Will obtain ECHO to rule out IE, especially with bioprosthetic valve. If negative, will consider MARIA ELENA for further evaluation. Patient is a current resident of [facility]. Patient twisted his knee playing golf in 2021 and also suffered a quad injury in 2022 and has been getting physical therapy with PT at [facility] with improvement. Patient follows with Dr. Alberto with vascular for peripheral vascular disease and claudication which has been improving with exercise. He is quite active and has an upcoming trip planned to [facility] and [place] on a cruise in February 2023. 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 No nephrectomy performed. He had a renal ultrasound in 2015: Medial left renal lesion seen on CT is not appreciated on ultrasound. Suggest MRI or CT via renal mass. Right Kidney: Normal size and echotexture. No significant collecting system dilatation or stones evident. The right kidney measures 11.5 x 6.0 x 5.7 cm. Left Kidney: Normal size and echotexture. No significant collecting system dilatation or stones evident. The left kidney measures 11.5 x 6.3 x 5.1 cm. Superior pole cyst measuring approximately 2.[address] done in 2014; lesion decreased in size. Have concerns about a man with no real source of infection; consistent headaches and fevers over past few weeks. patient is on Plavix and ASA; need to consider Meningitis ans source; will discuss with radiology for performance of LP. Patient denies visual or auditory changes, dizziness, abdominal pain, tenderness, Nausea, Vomiting, Diarrhea mucous stool, malodorous stool, recent falls or trauma, rashes, bruising, or appetite changes. 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 Patient denies tobacco and recreational drug use. Pt denies recent travel or known sick exposures. Patient denies any stiff or swollen joints. Patient does not appear toxic on exam and is hemodynamically stable. Patient will be admitted for further evaluation and management of his bacteremia. Please see A/P for further details. Principal Diagnosis Strep Endocarditis Discharge Exam Patient was seen on day of discharge. He feels well. He has been afebrile Gen- pleasant, comfortable, no acute distress CV- regular rate and rhythm. +soft systolic murmur Pulm- breathing comfortably on room air, no wheezing/rhonchi Extr- no edema, site of PICC appears clean and dry Discharge Data Allergies Allergy/AdvReac Type Severity Reaction Status Date / Time atorvastatin Allergy Severe RHABDO Verified 02/12/23 12:34 niacin Allergy Mild FACIAL Verified 02/12/23 12:34 BURNING Consultations 02/12/23 11:31 ED Decision to Admit Stat 02/12/23 12:09 Consult Infectious Diseases Routine Ordered Studies 02/12/23 14:04 CT abdomen pelvis wo/w con Routine 02/12/23 15:03 CT head/brain wo con Urgent Hospital Course (1) Bacteremia: (2) CAMELIA (acute kidney injury): (3) History of coronary artery bypass graft x 3: (4) S/P drug eluting coronary stent placement: (5) S/P aortic valve replacement with bioprosthetic valve: (6) Hypertension: (7) Hyperlipidemia: (8) Diabetes mellitus, type 2: (9) Chronic kidney disease, stage 3: (10) CHAMPAGNE (nonalcoholic steatohepatitis): Plan Mr Poncho Guan is a 77 year old presents with headache and fever found to have streptococcus bacteremia, hyponatremia and CAMELIA. Patient with history significant for bioprosthetic aortic valve, CABG x 3. 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 Saucedo, relayed infectious disease service recommendations. Cardiology does not recommend MARIA ELENA at this point. PICC line placed on 02/17/23 after blood cultures remained negative for 72 hours. Discharged on ceftriaxone 2 gram IV daily. Last day of antibiotic is 03/28/2023. PICC can be removed after last antibiotic dose Weekly labs-- CBC, BMP, CRP sent to PCP for monitoring CAMELIA on CKD Stage III: Suspect related to dehydration and illness Creatinine normalized Renal ultrasound in 2015: Medial left renal lesion seen on CT is not appreciated on ultrasound. Suggest MRI or CT via renal mass. Right Kidney: Normal size and echotexture. The right kidney measures 11.5 x 6.0 x 5.7 cm. Left Kidney: Normal size and echotexture. The left kidney measures 11.5 x 6.3 x 5.1 cm. Superior pole cyst measuring approximately 2.[address] performed 2015: showed decrease in lesion size Abd/pelvic CT: 1. There are no acute infectious or inflammatory findings in the abdomen or pelvis. 2. Cholelithiasis and right-sided nephrolithiasis. 3. Trace pelvic ascites. History of CABG x3: Status post drug-eluting stent: Status post AVR with p.o. bioprosthetic valve: Performed 2009; follows with Dr. Harper HTN: Takes metoprolol and Coreg; continued while here HLD: Takes rosuvastatin; continue Last lipid panel 11/08/2022; TG 167, HDL 71, LDL 104 Diabetes mellitus type 2: Iba-wdptljy-ackgpvmrt Takes Trulicity and Metformin; hold while inpatient and resume at discharge Insulin sliding scale while in the hospital H/O CHAMPAGNE: TBili: 1.1, direct bili 0.3 No transaminitis Disposition: discharged home with . Form filled out for patient so he can get a refund for a trip he had booked previously Home Health Attestation I certify that this patient is under my care and that I, or a physicians assistant professor of biochemistry working with me, had a face to-face encounter that meets the home health eoet-sd-xwox encounter requirements with this patient. The encounter with the patient was in whole, or in part, for the following medical condition, which is the primary reason for home health care (list medical condition): I certify that, based on my findings, the following services are medically n ecessary home health services: My clinical findings support the need for the above services because: Further, I certify that my clinical findings support that this patient is homebound (i.e. absences from home require considerable and taxing effort and are for medical reasons or yazdanism services or infrequently or of short duration when for other reasons) because: Certification for Home Health Services: Based on the above findings, I certify that this patient is confined to the home and needs intermittent senior care care, physical therapy and/or speech therapy or continues to need occupational therapy. The patient is under my care, and I have initiated the establishment of the plan of care. This patient will be followed by a physician who will periodically review the plan of care. Total Time Total Time Spent Total Time Spent (In Minutes): 45 Discharge Plan Discharge Items Patient Disposition: Home - Home Health Services Reason For Visit: BACTEREMIA/(+) BLOOD CULTURES Discharge Diagnosis: Strep Endocarditis Condition on Discharge: Good Activity: As commented below Exercise Comment: No repetitive movements of arm with PICC. No golf. Non-emergency contact: Primary Care Provider, Specialist and Battery Tester And Repairer Call non-emergency contact if: you have any medication questions Follow-up/Referrals: Naeem Lucas Jr, MD, FACC [Physician] - Fadi Scott DO [Primary Care Provider] - Erasto Cid MD [Physician] - (Date & Time 04/03/2023 11:40 AM Provider Erasto Cid MD Department Infectious Disease [facility] ) Diet: Carb Consistent or DM2 Addtl Attending Provider Instructions: You were admitted for fever, fatigue found to have Strep bacteremia. With your prosthetic aortic valve, you will be treated for Endocarditis (infection of valve) You will be on ceftriaxone 2gm IV daily until 03/28/2023 Your PICC can be discontinued after your last dose of IV antibiotic Weekly CBC, BMP, CRP to Dr Scott Pending Studies at Discharge: Yes Studies:: Blood cultures from 02/14/2023 will finalize after 5 days. At 72 hours it has remained negative Stand-Alone Forms: My [facility], Smoking Cessation Medications and DC Order Prescriptions: New ceftriaxone 2 gram recon soln 2 g IV DAILY Qty: 1 0RF Rx Instructions: Last day 03/28/2023 Continued nitroglycerin 0.4 mg tablet, sublingual 0.4 mg sublingual Q5M PRN (Reason: chest pain) Qty: 75 3RF Rx Instructions: do not exceed 3 doses per episode Trulicity 0.75 mg/0.5 mL pen injector 3 mg subcut WK Rx Instructions: SUNDAYS metformin 500 mg Tablet 500 mg PO BIDM Hold Instructions: Home Medication placed on hold at Doctor's office aspirin [Yunior Low Dose Aspirin] 81 mg Tablet,Delayed Release (Dr/Ec) 81 mg PO HS spironolactone 25 mg Tablet 25 mg PO QAM Hold Instructions: low bp allopurinol 300 mg Tablet 300 mg PO HS docusate sodium [Stool Softener] 100 mg Tablet 200 mg PO BID coQ10 (ubiquinol) 200 mg Capsule 200 mg PO QAM Benefiber Sugar Free (dextrin) 3 gram/3.8 gram Powder 1 packet PO QAM metoprolol succinate [Toprol XL] 100 mg tablet extended release 24 hr 100 mg PO DAILY Qty: 30 6RF clopidogrel [Plavix] 75 mg Tablet 75 mg PO QAM Men's 50 Plus Multivitamin 400-20-370 mcg Tablet 1 tab PO DAILY rosuvastatin 10 mg tablet 10 mg PO 4XWK Rx Instructions: TAKES MON, WED, FRI & SAT. Discharge Orders: Discharge Order (Routine); Ordered 02/17/23 Ordered By: Julianne Perez/Other Patient Handouts: Managing Type 2 Diabetes Admission Data Admit Date/Time: 02/12/23 12:09 Attending Provider: Julianne Ball Admit Provider: Renea Curry Primary Care Provider: Fadi Scott Other Providers: Renea Curry ; Neo Broderick ; Erasto Cid ; Jovany Alford I. ; Redd Collins II ; Marce Hinojosa ; Rg Salamanca ; Yeison Hines ; Shannan Klein ; Lv Doherty ; [facility] Other Interventions: Discharge Summary Assessment (RN) Last Done: 02/17/23 11:30
== END 2023-02-17 12:12 | disposition home health service (06) | DRG 315 ==
LOC: ED 10:36 → 2W 12:09 → SUATTDRO 12:09 → 2W 14:22

== ENCOUNTER 2024-03-31 16:12 | Inpatient (IN) ==
--- NOTE | 2024-03-31 16:20 | ED Triage Note ---
Date of Service March 31, 2024 Provider in Triage Author: Bharat Sparks History of Present Illness This patient was briefly evaluated while in triage. An abbreviated physical exam was performed. This patient is a 78-year-old Male who presents to the ED for evaluation of: PSA elevated, went to [facility] recently and had ct scan performed. UTI and was on antibiotics recently, Cefdinir. Started 03/14/24. Hx of BACTEREMIA with similar symptoms last year. Has headache, fever in evening, chills, no appetite. Dysuria as well. No blood. Here with . Physical Exam GENERAL: 78 year old male. In no acute distress. SKIN: No lesions or rashes. HEART: Tachycardic, regular rhythm LUNGS: Clear to auscultation. ABDOMEN: Bowel sounds normoactive. No guarding or rigidity. No tenderness of palpation. NEURO: Alert and oriented. No deficits. MUSCULOSKELETAL: No deformities to inspection of the extremities. PSYCH: Patient is pleasant and answers all questions appropriately. Initial orders for labs and / or imaging were placed and patient was placed in the waiting area until a bed is available. Please see further documentation for the full ED course.
[2024-03-31 16:49] LABS: Basophils # (auto) 0.05 K/uL (0.00-0.20); Basophils % (auto) 0.4 %; Eosinophils # (auto) 0.11 K/uL (0.00-0.50); Eosinophils % (auto) 0.9 %; Hematocrit (blood only) 46.9 % (42.0-52.0); Hemoglobin 16.1 g/dl (14.0-18.0); Immature Granulocytes # (auto) 0.05 K/uL (0.01-0.20); Immature Granulocytes % (auto) 0.4 %; Lymphocytes # (auto) 1.16 K/uL (1.20-3.40); Mean Corpuscular Hemoglobin 33.6 pg (25.0-34.0); Mean Corpuscular Hgb Conc 34.3 g/dL (32.0-36.0); Mean Corpuscular Volume 97.9 fL (80.0-100.0); Monocytes # (auto) 0.64 K/uL (0.11-0.59); Monocytes % (auto) 5.5 %; Neutrophils # (auto) 9.59 K/uL (1.40-6.50); Neutrophils % (auto) 82.8 %; Platelet Count 217 K/uL (130-400); RDW Coefficient of Variation 12.5 % (11.5-14.5); Red Blood Count 4.79 M/uL (4.70-6.10)
[2024-03-31 16:54] LABS: Appearance Urine Turbid (Clear); Bacteria Urine Automated 4+ (None Seen); Bilirubin Urine Negative (Negative); Blood Urine 2+ (Negative); Color Urine Yellow; Epithelial Cell Urine Auto 0-2 /hpf (0-2); Glucose Urine UA 1+ (Negative); Ketones Urine Negative (Negative); Leukocyte Esterase Urine 3+ (Negative); Nitrite Urine Positive (Negative); Protein Urine 3+ (Negative); Specific Gravity Urine 1.015 (1.000-1.030); Urobilinogen Urine Negative (Negative); WBC Urine Automated >50 /hpf (0-5)
--- NOTE | 2024-03-31 16:55 | XRay Report ---
XR chest 1V portable CLINICAL HISTORY: Shortness of breath. COMPARISON STUDY: Chest CT December 29, 2013. Chest radiograph February 17, 2023. FINDINGS: Status post median sternotomy. There are mediastinal surgical clips. Lung volumes are donell l. Lungs are clear. There is no pneumothorax or pleural effusion. Cardiac size is normal. Mediastinal contours are normal. There is no evidence for pulmonary edema. IMPRESSION: No acute cardiopulmonary findings. ACT 112: Negative or not required by law. Electronically signed by: Clarence Ventura M.D. 03/31/2024 4:54 PM
[2024-03-31 17:04] LABS: Albumin Globulin Ratio 1.2 (0.9-2); Albumin Level 4.5 gm/dl (3.4-5.0); Bilirubin,Total 1.4 mg/dl (0.2-1.0); Calcium 10.1 mg/dl (8.6-10.3); Creatinine Clr Calc Pharmacy 40.6 ml/min; Est GFR (African American) 48.6 ml/min; Est GFR (Non-African American) 41.9 ml/min; Globulin 3.7 gm/dl (2.5-4.0); Potassium 4.4 mmol/L (3.5-5.1); Total Protein 8.2 gm/dl (6.0-8.3)
[2024-03-31 17:14] LABS: INR 1.1 (0.9-1.1); Partial Thromboplastin Time 26 Seconds (21-31); Prothrombin Time 11.6 Seconds (9.0-12.0)
--- NOTE | 2024-03-31 17:31 | CT Scan Report ---
CT OF THE HEAD WITHOUT CONTRAST CLINICAL HISTORY: Headache. COMPARISON STUDY: MRI of the brain December 12, 2009. Head CT February 12, 2023. TECHNIQUE: Helical axial images of the head were obtained without IV contrast. Automated exposure con trol was utilized for the study. A dose lowering technique was utilized adhering to the principles o f ALARA. FINDINGS: No acute intracranial hemorrhage, midline shift or mass effect is present. The ventricular system is unremarkable. The basal cisterns are patent. No extra-axial collections are present. There are no findings to suggest acute dural sinus thrombosis or acute territorial infarct. No significant calvarial abnormalities are present. Visualized portions of the sinuses and mastoid air cells are ann marie ar. IMPRESSION: No acute intracranial findings. ACT 112: Negative or not required by law. Electronically signed by: Clarence Ventura M.D. 03/31/2024 5:29 PM
[2024-03-31] MEDS: SODIUM CHLORIDE 0.9% 500 ML IV ONE (17:35)
[2024-03-31] MEDS: cefTRIAXone SODIUM 2,000 MG/50 ML BAG IV STA (17:38)
--- NOTE | 2024-03-31 17:39 | CT Scan Report ---
CT OF THE ABDOMEN AND PELVIS WITHOUT CONTRAST CLINICAL HISTORY: Abdominal pain, fever and dysuria. COMPARISON STUDY: CT of the abdomen and pelvis 02/12/2023. TECHNIQUE: Axial images of the abdomen and pelvis were obtained without IV contrast. Images were revi ewed in the axial, sagittal, and coronal planes. Automated exposure control was utilized for the kaleb dy. A dose lowering technique was utilized adhering to the principles of ALARA. FINDINGS: No pneumatosis, free air or portal venous gas is present. Calcification within the right re nal sinus is likely vascular in etiology. There are no urinary calculi and there is no hydronephrosis . There is a left renal cortical calcification. Water attenuation 4.5 cm left renal lesion is subopti melinda assessed on this unenhanced exam but favors a cyst. There is mild symmetric bilateral perinephr ic infiltration, unchanged. Mild bladder wall thickening with minimal adjacent stranding is present. Evaluation of the remainder of the abdomen and pelvis is suboptimal on this unenhanced exam. The live r, spleen, adrenal glands and pancreas are unremarkable. Multiple calcific gallstones within the gall bladder are present. There is no pericholecystic or peripancreatic stranding. No evidence for a bowel obstruction. Oral contrast from prior imaging study within the left colon and rectum is present. No acute fractures are identified within the visualized skeletal structures. IMPRESSION: 1. No urinary calculi or hydronephrosis. 2. Mild bladder wall thickening with minimal adjacent stranding. This could be correlated with urinal ysis to exclude cystitis. 3. No bowel obstruction. Normal appendix. 4. Cholelithiasis. ACT 112: Negative or not required by law. Electronically signed by: Clarence Ventura M.D. 03/31/2024 5:37 PM
--- NOTE | 2024-03-31 18:08 | Emergency Department Note ---
History of Present Illness General Chief complaint: Flank Pain Stated complaint: VOMIT, FEVER, POSSIBLE KIDNEY STONES Time Seen by Provider: 03/31/24 16:34 History of Present Illness Maximum Pain Intensity: 4 Home Medications Medication Instructions Recorded Confirmed Type allopurinol 300 mg tablet 300 mg PO HS 04/29/19 02/12/24 History aspirin 81 mg tablet,delayed 81 mg PO HS 04/29/19 02/12/24 History release (Yunior Low Dose Aspirin) coQ10 (ubiquinol) 200 mg capsule 200 mg PO QAM 04/29/19 02/12/24 History docusate sodium 100 mg tablet 200 mg PO BID 04/29/19 02/12/24 History (Stool Softener) metformin 500 mg tablet 500 mg PO BIDM 04/29/19 02/12/24 History spironolactone 25 mg tablet 25 mg PO QAM 04/29/19 02/12/24 History wheat dextrin 3 gram/3.8 gram oral 1 packet PO QAM 04/29/19 02/12/24 History powder (Benefiber Sugar Free (dextrin)) dulaglutide 0.75 mg/0.5 mL 3 mg subcut WK 10/27/21 02/12/24 History subcutaneous pen injector (Trulicity) metoprolol succinate 100 mg 100 mg PO DAILY #30 tabs 11/09/21 02/12/24 Rx tablet,extended release 24 hr (Toprol XL) nitroglycerin 0.4 mg sublingual 0.4 mg sublingual Q5M PRN chest 12/17/21 02/12/24 Rx tablet pain #75 tabs clopidogrel 75 mg tablet (Plavix) 75 mg PO QAM 02/11/23 02/12/24 History pfldysjoqmsc-fvf-wzllr acid-vit 1 tab PO DAILY 02/11/23 02/12/24 History K-lycop 400 mcg-20 mcg-370 mcg tablet (Men's 50 Plus Multivitamin) rosuvastatin 10 mg tablet 10 mg PO 4XWK 02/11/23 02/12/24 History Allergies Allergy/AdvReac Type Severity Reaction Status Date / Time atorvastatin Allergy Severe RHABDO Verified 02/12/24 14:16 niacin Allergy Mild FACIAL Verified 02/12/24 14:16 BURNING Past Med/Surg History Problem List (Updated 02/12/24 @ 16:44 by Naeem Lucas Jr, MD, FACC) Left leg claudication Elevated PSA S/P drug eluting coronary stent placement JHOAN Graft to L Cx OM 11/30/20. [place] 3.5 X 15,3.5 X18 overlapping Aortic regurgitation [place] (nonalcoholic steatohepatitis) PAD (peripheral artery disease) Antiplatelet or antithrombotic long-term use Diabetes mellitus, type 2 Chronic kidney disease, stage 3 Hyperlipidemia Hypertension History of heart artery stent 2010 x2 stent History of coronary artery bypass graft x 3 [place] [facility] [place]. Lucas CAD (coronary artery disease) S/P aortic valve replacement with bioprosthetic valve History of colon polyps Medical History (Updated 02/12/24 @ 16:44 by Naeem Lucas Jr, MD, FACC) Endocarditis of aortic valve Bacteremia CAMELIA (acute kidney injury) Bacteremia Exertional angina Weakness Postural lightheadedness Fatigue Coronary artery disease with exertional angina Chest pain Gout History of colon polyps Cardiac murmur Sleep apnea no longer has, lost weight Surgical History History of hemorrhoidectomy History of colonoscopy History of tooth extraction History of aortic valve replacement done at same [place]G [place] [facility] [place]follow[place] Dr. Lucas History of cardiac cath x2-- History of thoracentesis Family History Brother Family history of diabetes mellitus 2 Sister Family history of diabetes mellitus Other No family history of adverse response to anesthesia Social History Smoking Status: Never smoker Tobacco Type: Cigarettes Second Hand Exposure: No; Do You Dip or Chew Tobacco: No; Hx Alcohol Use: Yes Alcohol type: beer and wine Hx Substance Use: No Preferred Language: Turkmen Communication Ability: Effective Reed Man Required: No Beliefs That Will Affect Care: None Current Living Situation: Spouse Feels Safe at Home: Yes Assistive Devices: None Physical Exam Vital Signs Vital Signs - 24 hr 03/31/24 16:14 03/31/24 16:35 03/31/24 16:35 Temperature 37.7 C H Temperature Source Oral Pulse Rate 119 H 120 H Pulse Rate [Apical] 117 H Respiratory Rate 18 24 17 Respiratory Effort / Characteristics Non-Labored Spontaneous Respiratory Depth Normal Blood Pressure 185/92 H Blood Pressure [Left Arm] 146/89 H Blood Pressure Mean 123 Blood Pressure Mean [Left Arm] 108 Blood Pressure Position Sitting Pulse Oximetry 98 94 95 Oxygen Delivery Method Room Air Room Air Room Air Sepsis Recent Fever Within 48 Hours No Sepsis New/Unexplained Change in Mental Status N/A Sepsis Action Taken by Nursing No Action Required Course Administered Medications Discontinued Medications Sodium Chloride (Nss) 500 mls @ 999 mls/hr IV .Q31M ONE Stop: 03/31/24 17:43 Last Admin: 03/31/24 17:35 Dose: 999 mls/hr Documented By: JOE Ceftriaxone Sodium (Rocephin) 2,000 mg in 50 mls @ 100 mls/hr IV NOW STA Stop: 03/31/24 17:45 Last Admin: 03/31/24 17:38 Dose: 100 mls/hr Documented By: JOE Medical Decision Making Laboratory Data 03/31/24 16:26 03/31/24 16:26 Lab Results 03/31/24 03/31/24 Range/Units 16:26 16:39 WBC 11.60 H (4.8-10.8) K/ul RBC 4.79 (4.70-6.10) M/uL Hgb 16.1 (14.0-18.0) g/dl Hct 46.9 (42.0-52.0) % MCV 97.9 (80.0-100.0) fL MCH 33.6 (25.0-34.0) pg MCHC 34.3 (32.0-36.0) g/dL RDW Std Deviation 45.0 (36.4-46.3) fL RDW Coeff of [place]aria 12.5 (11.5-14.5) % Plt Count 217 (130-400) K/uL MPV 10.0 (9.4-12.4) fL Immature Gran % (Auto) 0.4 % Neut % (Auto) 82.8 % Lymph % (Auto) 10.0 % [place] % (Auto) 5.5 % Eos % (Auto) 0.9 % Baso % (Auto) 0.4 % Neut # (Auto) 9.59 H (1.40-6.50) K/uL Lymph # (Auto) 1.16 L (1.20-3.40) K/uL [place] # (Auto) 0.64 H (0.11-0.59) K/uL Eos # (Auto) 0.11 (0.00-0.50) K/uL Baso # (Auto) 0.05 (0.00-0.20) K/uL Immature Gran # (Auto) 0.05 (0.01-0.20) K/uL PT 11.6 (9.0-12.0) Seconds INR 1.1 (0.9-1.1) APTT 26 (21-31) Seconds PTT Ratio 1.0 Sodium 132 L (136-145) mmol/L Potassium 4.4 (3.5-5.1) mmol/L Chloride 96 L (98-107) mmol/L Carbon Dioxide 25 (21-32) mmol/L Anion Gap 11 (3-11) BUN 22 (6-23) mg/dl Creatinine 1.57 H (0.6-1.4) mg/dl Est Cr Clr Drug Dosing 40.6 ml/min Est GFR ( Amer) 48.6 ml/min Est GFR (Non-Af Amer) 41.9 ml/min BUN/Creatinine Ratio 14.0 (10-20) Glucose 176 H (70-99(Fasting)) mg/dl Lactate 3.3 H* (0.4-2.0) mmol/L Calcium 10.1 (8.6-10.3) mg/dl Total Bilirubin 1.4 H (0.2-1.0) mg/dl AST 18 (13-39) U/L ALT 25 (7-52) U/L Alkaline Phosphatase 71 (34-104) U/L Total Protein 8.2 (6.0-8.3) gm/dl Albumin 4.5 (3.4-5.0) gm/dl Globulin 3.7 (2.5-4.0) gm/dl Albumin/Globulin Ratio 1.2 (0.9-2) Lipase 28 (11-82) U/L Procalcitonin 0.48 (0-0.5) ng/ml Urine Color Yellow Urine Appearance Turbid A (Clear) Urine pH 6.0 (4.5-7.5) Ur Specific [place] 1.015 (1.000-1.030) Urine Protein 3+ H (Negative) Urine Glucose (UA) 1+ H (Negative) Urine Ketones Negative (Negative) Urine Blood 2+ H (Negative) Urine Nitrite Positive A (Negative) Urine Bilirubin Negative (Negative) Urine Urobilinogen Negative (Negative) Ur Leukocyte Esterase 3+ H (Negative) Urine WBC (Auto) >50 H (0-5) /hpf Urine RBC (Auto) 11-20 H (0-2) /hpf U Hyaline Cast (Auto) 3-5 H (0-2) /lpf U Epithel Cells (Auto) 0-2 (0-2) /hpf Urine Bacteria (Auto) 4+ H (None Seen) Imaging Data Radiologist's Impression: Abdomen/Pelvis CT 03/31/24 16:40 CT OF THE ABDOMEN AND PELVIS WITHOUT CONTRAST CLINICAL HISTORY: Abdominal pain, fever and dysuria. COMPARISON STUDY: CT of the abdomen and pelvis 02/12/2023. TECHNIQUE: Axial images of the abdomen and pelvis were obtained without IV contrast. Images were reviewed in the axial, sagittal, and coronal planes. Automated exposure control was utilized for the study. A dose lowering technique was utilized adhering to the principles of ALARA. FINDINGS: No pneumatosis, free air or portal venous gas is present. Calcification within the right renal sinus is likely vascular in etiology. There are no urinary calculi and there is no hydronephrosis. There is a left renal cortical calcification. Water attenuation 4.5 cm left renal lesion is suboptimally assessed on this unenhanced exam but favors a cyst. There is mild symmetric bilateral perinephric infiltration, unchanged. Mild bladder wall thickening with minimal adjacent stranding is present. Evaluation of the remainder of the abdomen and pelvis is suboptimal on this unenhanced exam. The liver, spleen, adrenal glands and pancreas are unremarkable. Multiple calcific gallstones within the gallbladder are present. There is no pericholecystic or peripancreatic stranding. No evidence for a bowel obstruction. Oral contrast from prior imaging study within the left colon and rectum is present. No acute fractures are identified within the visualized skeletal structures. IMPRESSION: 1. No urinary calculi or hydronephrosis. 2. Mild bladder wall thickening with minimal adjacent stranding. This could be correlated with urinalysis to exclude cystitis. 3. No bowel obstruction. Normal appendix. 4. Cholelithiasis. ACT 112: Negative or not required by law. Electronically signed by: Clarence Ventura M.D. 03/31/2024 5:[address] 03/31/24 16:40 CT OF THE HEAD WITHOUT CONTRAST CLINICAL HISTORY: Headache. COMPARISON STUDY: MRI of the brain December 12, 2009. Head CT February 12, 2023. TECHNIQUE: Helical axial images of the head were obtained without IV contrast. Automated exposure control was utilized for the study. A dose lowering technique was utilized adhering to the principles of ALARA. FINDINGS: No acute intracranial hemorrhage, midline shift or mass effect is present. The ventricular system is unremarkable. The basal cisterns are patent. No extra-axial collections are present. There are no findings to suggest acute dural sinus thrombosis or acute territorial infarct. No significant calvarial abnormalities are present. Visualized portions of the sinuses and mastoid air cells are clear. IMPRESSION: No acute intracranial findings. ACT 112: Negative or not required by law. Electronically signed by: Clarence Ventura M.D. 03/31/2024 5:29 PM Chest X-Ray 03/31/24 16:43 XR chest 1V portable CLINICAL HISTORY: Shortness of breath. COMPARISON STUDY: Chest CT December 29, 2013. Chest radiograph February 17, 2023. FINDINGS: Status post median sternotomy. There are mediastinal surgical clips. Lung volumes are normal. Lungs are clear. There is no pneumothorax or pleural effusion. Cardiac size is normal. Mediastinal contours are normal. There is no evidence for pulmonary edema. IMPRESSION: No acute cardiopulmonary findings. ACT 112: Negative or not required by law. Electronically signed by: Clarence Ventura M.D. 03/31/2024 4:54 PM Discharge Plan Visit Data Chief Complaint: Flank Pain Stated Complaint: VOMIT, FEVER, POSSIBLE KIDNEY STONES ED Provider: Sal Keller Forms Stand Alone Forms: [facility] Prescriptions Prescriptions: No Action nitroglycerin 0.4 mg tablet, sublingual 0.4 mg sublingual Q5M PRN (Reason: chest pain) Qty: 75 3RF Rx Instructions: do not exceed 3 doses per episode Trulicity 0.75 mg/0.5 mL pen injector 3 mg subcut WK Rx Instructions: SUNDAYS metformin 500 mg Tablet 500 mg PO BIDM Hold Instructions: Home Medication placed on hold at Doctor's office aspirin [Yunior Low Dose Aspirin] 81 mg Tablet,Delayed Release (Dr/Ec) 81 mg PO HS spironolactone 25 mg Tablet 25 mg PO QAM Hold Instructions: low bp allopurinol 300 mg Tablet 300 mg PO HS docusate sodium [Stool Softener] 100 mg Tablet 200 mg PO BID coQ10 (ubiquinol) 200 mg Capsule 200 mg PO QAM Benefiber Sugar Free (dextrin) 3 gram/3.8 gram Powder 1 packet PO QAM metoprolol succinate [Toprol XL] 100 mg tablet extended release 24 hr 100 mg PO DAILY Qty: 30 6RF clopidogrel [Plavix] 75 mg Tablet 75 mg PO QAM Men's 50 Plus Multivitamin 400-20-370 mcg Tablet 1 tab PO DAILY rosuvastatin 10 mg tablet 10 mg PO 4XWK Rx Instructions: TAKES MON, WED, FRI & SAT. Referrals Referrals: Fadi Scott DO [Primary Care Provider] -
--- NOTE | 2024-03-31 18:19 | Emergency Department Note ---
History of Present Illness General Chief Complaint: Flank Pain Stated Complaint: VOMIT, FEVER, POSSIBLE KIDNEY STONES Time Seen by Provider: 03/31/24 16:34 History of Present Illness Provider Complaint: abdominal pain Onset (ago): 2 week(s) Pain Consistency: intermittent Severity: moderate Maximum Pain Intensity: 4 Quality: + stabbing and + sharp Relieved By: + nothing Exacerbated By: + nothing Context: no foreign travel, no possible food poisoning, no recent antibiotic use or no recent surgery/procedure Associated Symptoms: + nausea, + vomiting, + fever, + chills, + headache and + back pain; no diarrhea, no constipation, no dysuria, no hematemesis, no melena, no hematuria and no syncope Home Medications Medication Instructions Recorded Confirmed Type allopurinol 300 mg tablet 300 mg PO HS 04/29/19 02/12/24 History aspirin 81 mg tablet,delayed 81 mg PO HS 04/29/19 02/12/24 History release (Yunior Low Dose Aspirin) coQ10 (ubiquinol) 200 mg capsule 200 mg PO QA 04/29/19 02/12/24 History docusate sodium 100 mg tablet 200 mg PO BID 04/29/19 02/12/24 History (Stool Softener) metformin 500 mg tablet 500 mg PO BIDM 04/29/19 02/12/24 History spironolactone 25 mg tablet 25 mg PO QAM 04/29/19 02/12/24 History wheat dextrin 3 gram/3.8 gram oral 1 packet PO QA 04/29/19 02/12/24 History powder (Benefiber Sugar Free (dextrin)) dulaglutide 0.75 mg/0.5 mL 3 mg subcut WK 10/27/21 02/12/24 History subcutaneous pen injector (Trulicity) metoprolol succinate 100 mg 100 mg PO DAILY #30 tabs 11/09/21 02/12/24 Rx tablet,extended release 24 hr (Toprol XL) nitroglycerin 0.4 mg sublingual 0.4 mg sublingual Q5M PRN chest 12/17/21 02/12/24 Rx tablet pain #75 tabs clopidogrel 75 mg tablet (Plavix) 75 mg PO QAM 02/11/23 02/12/24 History [id number] acid-vit 1 tab PO DAILY 02/11/23 02/12/24 History K-lycop 400 mcg-20 mcg-370 mcg tablet (Men's 50 Plus Multivitamin) rosuvastatin 10 mg tablet 10 mg PO 4XWK 02/11/23 02/12/24 History Allergies Allergy/AdvReac Type Severity Reaction Status Date / Time atorvastatin Allergy Severe RHABDO Verified 02/12/24 14:16 niacin Allergy Mild FACIAL Verified 02/12/24 14:16 BURNING Past Med/Surg History Problem List (Updated 03/31/24 @ 18:19 by Sal Keller MD) Pyelonephritis (Acute) Left leg claudication Elevated PSA S/P drug eluting coronary stent placement JHOAN Graft to L Cx OM 11/30/20. [place] 3.5 X 15,3.5 X18 overlapping Aortic regurgitation [place] (nonalcoholic steatohepatitis) PAD (peripheral artery disease) Antiplatelet or antithrombotic long-term use Diabetes mellitus, type 2 Chronic kidney disease, stage 3 Hyperlipidemia Hypertension History of heart artery stent 2010 x2 stent History of coronary artery bypass graft x 3 [place] [facility] [place]. Lucas CAD (coronary artery disease) S/P aortic valve replacement with bioprosthetic valve History of colon polyps Medical History Endocarditis of aortic valve Bacteremia CAMELIA (acute kidney injury) Bacteremia Exertional angina Weakness Postural lightheadedness Fatigue Coronary artery disease with exertional angina Chest pain Gout History of colon polyps Cardiac murmur Sleep apnea no longer has, lost weight Surgical History History of hemorrhoidectomy History of colonoscopy History of tooth extraction History of aortic valve replacement done at same time [place] CABG [place] [facility] [place]follows with Dr. Lucas History of cardiac cath x2-- History of thoracentesis Family History Brother Family history of diabetes mellitus 2 Sister Family history of diabetes mellitus Other No family history of adverse response to anesthesia Social History Smoking Status: Never smoker Tobacco Type: Cigarettes Second Hand Exposure: No; Do You Dip or Chew Tobacco: No; Hx Alcohol Use: Yes Alcohol type: beer and wine Hx Substance Use: No Preferred Language: Maltese Communication Ability: Effective Airplane Dispatcher Required: No Beliefs That Will Affect Care: None Current Living Situation: Spouse Feels Safe at Home: Yes Assistive Devices: None Physical Exam 2 Vital Signs: Vital Signs - 24 hr 03/31/24 16:14 03/31/24 16:35 03/31/24 16:35 Temperature 37.7 C H Temperature Source Oral Pulse Rate 119 H 120 H Pulse Rate [Apical ] 117 H Respiratory Rate 18 24 17 Respiratory Effort / Characteristics Non-Labored Sponta neous Respiratory Depth Normal Blood Pressure 185/92 H Blood Pressure [Le ft Arm] 146/89 H Blood Pressure Reema n 123 Blood Pressure Reema n [Left Arm] 108 Blood Pressure Pos ition Sitting Pulse Oximetry 98 94 95 Oxygen Delivery Me thod Room Air Room Air Room Air Sepsis Recent Feve r Within 48 Hours No Sepsis New/Unexpla ined Change in Men lenny Status N/A Sepsis Action Take n by Nursing No Action Required Physical Exam: Physical Exam GENERAL: oriented to person, place, and time. appears well-developed and well- nourished. She does not appear distressed. HENT: Exam performed. -Head: Normocephalic and atraumatic. -Right Ear: External ear normal. No mastoid erythema -Left Ear: External ear normal. No mastoid erythema -Mouth/Throat: The oropharynx is clear and moist. No trismus in the jaw. No dental abscesses or uvula swelling. No oropharyngeal exudate or tonsillar abscesses. EYES: Conjunctivae and EOM are normal.Right eye exhibits no discharge. Left eye exhibits no discharge. No scleral icterus. NECK: Normal range of motion. Neck supple. No JVD present. No tracheal deviation and normal range of motion present. No rigidity. Full range of motion. CV: Tachycardic rate, regular rhythm, normal heart sounds and intact distal pulses. There is no peripheral edema. Palpable radial pulses bue. PULM/CHEST: Effort normal and breath sounds normal. No respiratory distress. No stridor. no wheezes.no rales. -Chest Wall: no tenderness to palpation ABD: The abdomen is soft. Bowel sounds are normal. no distension. No mass is present. There is no tenderness. There is no rebound, no guarding, no Israel's sign and no tenderness at McBurney's point. Rovsig negative MUSC/SKEL: Normal range of motion. There is no peripheral edema, tenderness or deformity. NEURO: Motor and sensation grossly intact. SKIN: Skin is warm and dry. not diaphoretic. PSYCH: normal mood and affect. Behavior is normal. Judgment and thought content normal. Course Course 1633: The patient was evaluated in room C2. A complete history and physical exam was performed Cardiac monitoring: An order was placed for continuous cardiac monitoring. The monitor shows a rate of 120 with sinus rhythm interpreted by ca 1715: Patient's lactic acid is 3.3. Urine appears infected. Patient's urine culture from March 14 and the [employer] system grew a pansensitive E. coli. Rocephin ordered for the patient. 1755:Labs show white blood cell count of 11.6. Creatinine up to 1.57. Lactic acid 3.3. Total bilirubin 1.4. Urinalysis does appear infected. Chest x-ray negative. CT of the head within normal limits. CT of the abdomen pelvis shows no urinary calculi but there is mild bladder wall thickening with adjacent stranding. No hydronephrosis. Patient will be admitted to the [facility] team. Spoke with Dr. Herrmann and she is aware of the patient. Administered Medications Discontinued Medications Sodium Chloride (Nss) 500 mls @ 999 mls/hr IV .Q31M ONE Stop: 03/31/24 17:43 Last Admin: 03/31/24 17:35 Dose: 999 mls/hr Documented By: JOE Ceftriaxone Sodium (Rocephin) 2,000 mg in 50 mls @ 100 mls/hr IV NOW STA Stop: 03/31/24 17:45 Last Admin: 03/31/24 17:38 Dose: 100 mls/hr Documented By: JOE Medical Decision Making Medical Records Attestation: I reviewed the patient's medical records. External medical records were obtained by Daylin electromechanical technologist from the [employer] system and the were reviewed. Patient had a urine culture from March 14, 2024 which grew out a pansensitive E. coli. Patient had anaplasmosis testing which was negative. Patient had a ultrasound performed on March 19, 2024 which showed right-sided hydronephrosis but no shadowing calculus there was cholelithiasis and gallbladder sludge.Patient had CT of the abdomen pelvis performed on March 26, 2024 which showed mild fullness of the right renal collecting system suggesting of a mild right-sided hydronephrosis no obstructing ureteral calculus nonobstructing bilateral renal calculi. Laboratory Data Attestation: I reviewed the patient's lab results. 03/31/24 16:26 03/31/24 16:26 Lab Results 03/31/24 03/31/24 Range/Units 16:26 16:39 WBC 11.60 H (4.8-10.8) K/ul RBC 4.79 (4.70-6.10) M/uL Hgb 16.1 (14.0-18.0) g/dl Hct 46.9 (42.0-52.0) % MCV 97.9 (80.0-100.0) fL MCH 33.6 (25.0-34.0) pg MCHC 34.3 (32.0-36.0) g/dL RDW Std Deviation 45.0 (36.4-46.3) fL RDW Coeff of Daria 12.5 (11.5-14.5) % Plt Count 217 (130-400) K/uL MPV 10.0 (9.4-12.4) fL Immature Gran % (Auto) 0.4 % Neut % (Auto) 82.8 % Lymph % (Auto) 10.0 % Mcclain % (Auto) 5.5 % Eos % (Auto) 0.9 % Baso % (Auto) 0.4 % Neut # (Auto) 9.59 H (1.40-6.50) K/uL Lymph # (Auto) 1.16 L (1.20-3.40) K/uL Mcclain # (Auto) 0.64 H (0.11-0.59) K/uL Eos # (Auto) 0.11 (0.00-0.50) K/uL Baso # (Auto) 0.05 (0.00-0.20) K/uL Immature Gran # (Auto) 0.05 (0.01-0.20) K/uL PT 11.6 (9.0-12.0) Seconds INR 1.1 (0.9-1.1) APTT 26 (21-31) Seconds PTT Ratio 1.0 Sodium 132 L (136-145) mmol/L Potassium 4.4 (3.5-5.1) mmol/L Chloride 96 L (98-107) mmol/L Carbon Dioxide 25 (21-32) mmol/L Anion Gap 11 (3-11) BUN 22 (6-23) mg/dl Creatinine 1.57 H (0.6-1.4) mg/dl Est Cr Clr Drug Dosing 40.6 ml/min Est GFR ( Amer) 48.6 ml/min Est GFR (Non-Af Amer) 41.9 ml/min BUN/Creatinine Ratio 14.0 (10-20) Glucose 176 H (70-99(Fasting)) mg/dl Lactate 3.3 H* (0.4-2.0) mmol/L Calcium 10.1 (8.6-10.3) mg/dl Total Bilirubin 1.4 H (0.2-1.0) mg/dl AST 18 (13-39) U/L ALT 25 (7-52) U/L Alkaline Phosphatase 71 (34-104) U/L Total Protein 8.2 (6.0-8.3) gm/dl Albumin 4.5 (3.4-5.0) gm/dl Globulin 3.7 (2.5-4.0) gm/dl Albumin/Globulin Ratio 1.2 (0.9-2) Lipase 28 (11-82) U/L Procalcitonin 0.48 (0-0.5) ng/ml Urine Color Yellow Urine Appearance Turbid A (Clear) Urine pH 6.0 (4.5-7.5) Ur Specific Hagerman 1.015 (1.000-1.030) Urine Protein 3+ H (Negative) Urine Glucose (UA) 1+ H (Negative) Urine Ketones Negative (Negative) Urine Blood 2+ H (Negative) Urine Nitrite Positive A (Negative) Urine Bilirubin Negative (Negative) Urine Urobilinogen Negative (Negative) Ur Leukocyte Esterase 3+ H (Negative) Urine WBC (Auto) >50 H (0-5) /hpf Urine RBC (Auto) 11-20 H (0-2) /hpf U Hyaline Cast (Auto) 3-5 H (0-2) /lpf U Epithel Cells (Auto) 0-2 (0-2) /hpf Urine Bacteria (Auto) 4+ H (None Seen) Imaging Data Attestation: I personally reviewed and interpreted this imaging study as follows: My Impression: Chest x-ray negative. Airway clear. No pneumothorax. No consolidation. No cardiomegaly or cephalization.. No free air under the diaphragm. No fractures of the skeletal structures. Radiologist's Impression: Abdomen/Pelvis CT 03/31/24 16:40 CT OF THE ABDOMEN AND PELVIS WITHOUT CONTRAST CLINICAL HISTORY: Abdominal pain, fever and dysuria. COMPARISON STUDY: CT of the abdomen and pelvis 02/12/2023. TECHNIQUE: Axial images of the abdomen and pelvis were obtained without IV contrast. Images were reviewed in the axial, sagittal, and coronal planes. Automated exposure control was utilized for the study. A dose lowering technique was utilized adhering to the principles of ALARA. FINDINGS: No pneumatosis, free air or portal venous gas is present. Calcification within the right renal sinus is likely vascular in etiology. There are no urinary calculi and there is no hydronephrosis. There is a left renal cortical calcification. Water attenuation 4.5 cm left renal lesion is suboptimally assessed on this unenhanced exam but favors a cyst. There is mild symmetric bilateral perinephric infiltration, unchanged. Mild bladder wall thickening with minimal adjacent stranding is present. Evaluation of the remainder of the abdomen and pelvis is suboptimal on this unenhanced exam. The liver, spleen, adrenal glands and pancreas are unremarkable. Multiple calcific gallstones within the gallbladder are present. There is no pericholecystic or peripancreatic stranding. No evidence for a bowel obstruction. Oral contrast from prior imaging study within the left colon and rectum is present. No acute fractures are identified within the visualized skeletal structures. IMPRESSION: 1. No urinary calculi or hydronephrosis. 2. Mild bladder wall thickening with minimal adjacent stranding. This could be correlated with urinalysis to exclude cystitis. 3. No bowel obstruction. Normal appendix. 4. Cholelithiasis. ACT 112: Negative or not required by law. Electronically signed by: Clarence Ventuar M.D. 03/31/2024 5:[address] 03/31/24 16:40 CT OF THE HEAD WITHOUT CONTRAST CLINICAL HISTORY: Headache. COMPARISON STUDY: MRI of the brain December 12, 2009. Head CT February 12, 2023. TECHNIQUE: Helical axial images of the head were obtained without IV contrast. Automated exposure control was utilized for the study. A dose lowering technique was utilized adhering to the principles of ALARA. FINDINGS: No acute intracranial hemorrhage, midline shift or mass effect is present. The ventricular system is unremarkable. The basal cisterns are patent. No extra-axial collections are present. There are no findings to suggest acute dural sinus thrombosis or acute territorial infarct. No significant calvarial abnormalities are present. Visualized portions of the sinuses and mastoid air cells are clear. IMPRESSION: No acute intracranial findings. ACT 112: Negative or not required by law. Electronically signed by: Clarence Ventura M.D. 03/31/2024 5:29 PM Chest X-Ray 03/31/24 16:43 XR chest 1V portable CLINICAL HISTORY: Shortness of breath. COMPARISON STUDY: Chest CT December 29, 2013. Chest radiograph February 17, 2023. FINDINGS: Status post median sternotomy. There are mediastinal surgical clips. Lung volumes are normal. Lungs are clear. There is no pneumothorax or pleural effusion. Cardiac size is normal. Mediastinal contours are normal. There is no evidence for pulmonary edema. IMPRESSION: No acute cardiopulmonary findings. ACT 112: Negative or not required by law. Electronically signed by: Clarence Ventura M.D. 03/31/2024 4:54 PM ECG Data Attestation: I personally reviewed and interpreted this ECG as follows: Rate (beats per minute): 120 Rhythm: sinus tachycardia Findings: no ST depression, no ST elevation or no prolonged QT MDM Narrative 1634: The patient was evaluated in room C2. A complete history and physical exam was performed Cardiac monitoring: An order was placed for continuous cardiac monitoring. The monitor shows a rate of 120 with sinus rhythm interpreted by ca 1715: Patient's lactic acid is 3.3. Urine appears infected. Patient's urine culture from March 14 and the [employer] system grew a pansensitive E. coli. Rocephin ordered for the patient. 1755:Labs show white blood cell count of 11.6. Creatinine up to 1.57. Lactic acid 3.3. Total bilirubin 1.4. Urinalysis does appear infected. Chest x-ray negative. CT of the head within normal limits. CT of the abdomen pelvis shows no urinary calculi but there is mild bladder wall thickening with adjacent stranding. No hydronephrosis. Patient will be admitted to the [facility] team. Spoke with Dr. Herrmann and she is aware of the patient. Impression & Plan Pyelonephritis Discharge Plan Visit Data Chief Complaint: Flank Pain Stated Complaint: VOMIT, FEVER, POSSIBLE KIDNEY STONES ED Provider: Sal Keller Discharge Problem: Pyelonephritis Patient Disposition: Admitted As Inpatient Forms Stand Alone Forms: [facility] Prescriptions Prescriptions: No Action nitroglycerin 0.4 mg tablet, sublingual 0.4 mg sublingual Q5M PRN (Reason: chest pain) Qty: 75 3RF Rx Instructions: do not exceed 3 doses per episode Trulicity 0.75 mg/0.5 mL pen injector 3 mg subcut WK Rx Instructions: SUNDAYS metformin 500 mg Tablet 500 mg PO BIDM Hold Instructions: Home Medication placed on hold at Doctor's office aspirin [Yunior Low Dose Aspirin] 81 mg Tablet,Delayed Release (Dr/Ec) 81 mg PO HS spironolactone 25 mg Tablet 25 mg PO QAM Hold Instructions: low bp allopurinol 300 mg Tablet 300 mg PO HS docusate sodium [Stool Softener] 100 mg Tablet 200 mg PO BID coQ10 (ubiquinol) 200 mg Capsule 200 mg PO QAM Benefiber Sugar Free (dextrin) 3 gram/3.8 gram Powder 1 packet PO QAM metoprolol succinate [Toprol XL] 100 mg tablet extended release 24 hr 100 mg PO DAILY Qty: 30 6RF clopidogrel [Plavix] 75 mg Tablet 75 mg PO QAM Men's 50 Plus Multivitamin 400-20-370 mcg Tablet 1 tab PO DAILY rosuvastatin 10 mg tablet 10 mg PO 4XWK Rx Instructions: TAKES MON, WED, FRI & SAT. Referrals Referrals: Fadi Scott DO [Primary Care Provider] -
[2024-03-31 18:33] LABS: Influenza A virus by PCR Negative (Neg); Influenza B virus by PCR Negative (Neg); RSV by PCR Negative (Neg); SARS CoV2 RNA(COVID-19) Ceph NEGATIVE (Negative)
[2024-03-31] MEDS: SODIUM CHLORIDE 0.9% 1,000 ML IV SCH ×2 (19:17→21:03)
[2024-03-31] MEDS ORDERED: DEXTROSE 50% 50 ML SYRINGE IV PRN (20:38)
[2024-03-31] MEDS ORDERED: GLUCAGON FOR INJ 1 MG VIAL SQ PRN (20:38)
[2024-03-31] MEDS ORDERED: CARBOHYDRATES FOR HYPOGLYCEMIA PO PRN (20:38)
[2024-03-31] MEDS ORDERED: GLUCOSE 40% GEL 15 GM TUBE PO PRN (20:38)
[2024-03-31] MEDS ORDERED: GLUCOSE 10 TAB/TUBE PO PRN (20:38)
--- NOTE | 2024-03-31 21:17 | History & Physical Report ---
Date of Service March 31, 2024 Assessment & Plan (1) UTI (urinary tract infection): Plan: Possible Early Sepsis Admit to telemetry Patient presenting from home with reports of fever and UTI symptoms Patient presented to PCP on 03/14 with complaints of fever and headache. He was diagnosed with a UTI and placed on a 10-day course of cefdinir. Urine culture grew a pansensitive E. coli. Labs also showed mildly elevated AST and ALT, [address] ABD/pelvis showed Mild fullness of the right renal collecting system suggesting mild right hydronephrosis. No obstructing ureteral calculus is identified. Consider urology consultation. CT urogram may be helpful to exclude an occult ureteral lesion. Nonobstructing bilateral renal calculi measure up to approximately 8 mm on the left. Cholelithiasis. CT urogram was scheduled as follow up. In the ED, patient has a low-grade fever of 37.7, mildly tachycardic, WBC 11.6 K, initial lactate 3.3 with repeat 1.2. UA suggestive of UTI. CT ABD/pelvis without contrast shows no urinary calculi or hydronephrosis, mild bladder wall thickening S/p IV ceftriaxone in the ED, given that patient recently completed a 10-day course of cefdinir, will broaden antibiotics to IV cefepime Follow urine and blood cultures Renal US to further evaluate for stone Urology consult for recurrent UTI, abnormal outpatient CT (2) Elevated LFTs: Plan: Outpatient labs on 03/14 showed AST 99, ALT 137, T. bili 1.1 LFTs now normalized, AST 18, ALT [address] ABD/pelvis, patient currently appears asymptomatic Transient LFT elevation likely secondary to recent infection (3) Diabetes mellitus, type 2: Plan: Hgb A1c 7.5 12/2023 Hold home Trulicity and metformin, NovoLog per protocol while hospitalized (4) CAD (coronary artery disease): (5) S/P aortic valve replacement with bioprosthetic valve: Plan: Appears stable, no reports of chest pain Continue beta-angela, statin, Plavix (6) Hypertension: Plan: Chronic, stable Continue metoprolol, will hold spironolactone during acute illness (7) Chronic kidney disease, stage 3: Plan: Baseline creatinine low to mid 1s Creat 1.5 today Monitor renal functions DVT PROPHYLAXIS SQ heparin Patient seen in collaboration with Dr. Herrmann. I spent a total of 75 minutes coordinating, documenting, and providing care for this patient excluding time spent in the performance of separately billed services. This included personally reviewing all current laboratories and imaging studies, medication reconciliation, outpatient chart review, and discussion with specialists. 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 History is obtained from the patient and review of outpatient PCP, cardiology, urology records. Patient presented to PCP on 03/14 with complaints of fever and headache. He was diagnosed with a UTI and placed on a 10-day course of cefdinir. Urine culture grew a pansensitive E. coli. Labs also showed mildly elevated AST and ALT, [address] ABD/pelvis showed Mild fullness of the right renal collecting system suggesting mild right hydronephrosis. No obstructing ureteral calculus is identified. Consider urology consultation. CT urogram may be helpful to exclude an occult ureteral lesion. Nonobstructing bilateral renal calculi measure up to approximately 8 mm on the left. Cholelithiasis. CT urogram was scheduled as follow up. patient reports that most of his symptoms improved however he never returned back to his baseline. 3 days ago, patient reports he felt generally ill and had shaking chills. Reports his fever was 100. Today, patient had another similar episode with an episode of vomiting. He then presented to the ED for further evaluation. Patient reports ongoing urinary frequency and foul-smelling urine. Denies back or flank pain. No abdominal pain. He denies chest pain and shortness of breath. No lightheadedness, dizziness, diaphoresis, syncopal events. In the ED, patient has a low-grade fever of 37.7, mildly tachycardic, WBC 11.6 K, initial lactate 3.3 with repeat 1.2. UA suggestive of UTI. Patient was given IV ceftriaxone and IVF. Allergies Allergy/AdvReac Type Severity Reaction Status Date / Time atorvastatin Allergy Severe RHABDO Verified 02/12/24 14:16 niacin Allergy Mild FACIAL Verified 02/12/24 14:16 BURNING Home Medications Medication Instructions Recorded Confirmed Type allopurinol 300 mg tablet 300 mg PO HS 04/29/19 03/31/24 History aspirin 81 mg tablet,delayed 81 mg PO HS 04/29/19 03/31/24 History release (Yunior Low Dose Aspirin) coQ10 (ubiquinol) 200 mg capsule 200 mg PO QAM 04/29/19 03/31/24 History docusate sodium 100 mg tablet 200 mg PO BID 04/29/19 03/31/24 History (Stool Softener) metformin 500 mg tablet 500 mg PO BIDM 04/29/19 03/31/24 History spironolactone 25 mg tablet 25 mg PO QAM 04/29/19 03/31/24 History dulaglutide 0.75 mg/0.5 mL 4.5 mg subcut WK 10/27/21 03/31/24 History subcutaneous pen injector (Trulicity) clopidogrel 75 mg tablet (Plavix) 75 mg PO QAM 02/11/23 03/31/24 History [id number] acid-vit 1 tab PO QAM 02/11/23 03/31/24 History K-lycop 400 mcg-20 mcg-370 mcg tablet (Men's 50 Plus Multivitamin) rosuvastatin 10 mg tablet 10 mg PO [id number] 02/11/23 03/31/24 History metoprolol succinate 100 mg 100 mg PO QAM 03/31/24 03/31/24 History tablet,extended release 24 hr (Toprol XL) Past Med/Surg History Problem List (Updated 03/31/24 @ 21:15 by NGOC Hall) Elevated LFTs UTI (urinary tract infection) Sepsis Left leg claudication Elevated PSA S/P drug eluting coronary stent placement JHOAN Graft to L Cx OM 11/30/20. [place] 3.5 X 15,3.5 X18 overlapping [place] (nonalcoholic steatohepatitis) PAD (peripheral artery disease) Antiplatelet or antithrombotic long-term use Diabetes mellitus, type 2 Chronic kidney disease, stage 3 Hyperlipidemia Hypertension History of heart artery stent 2009 x2 stent History of coronary artery bypass graft x [address] [facility] [place]--follows with Dr. Lucas CAD (coronary artery disease) S/P aortic valve replacement with bioprosthetic valve History of colon polyps Medical History (Updated 03/31/24 @ 21:15 by NGOC Hall) Endocarditis of aortic valve Bacteremia Exertional angina Fatigue Coronary artery disease with exertional angina Gout History of colon polyps Cardiac murmur Sleep apnea no longer has, lost weight Surgical History History of hemorrhoidectomy History of colonoscopy History of tooth extraction History of aortic valve replacement done at same time as CABG @ [facility] [place]--follows with Dr. 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: No Beliefs That Will Affect Care: None Current Living Situation: Spouse Other Information That Helps Us Care for You: No Feels Safe at Home: Yes Assistive Devices: None Review of Systems Review of Systems: ROS per HPI, all other systems reviewed and negative Physical Exam Constitutional: WD/WN, vitals as above no acute distress Eyes: PERRL, conjunctivae normal, anicteric sclerae ENMT: external ear and nose normal, oropharynx normal Respiratory: normal respiratory effort, lungs clear to auscultation Cardiovascular: Rate/Rhythm: regular rhythm and + tachycardic Vessels: normal peripheral pulses Extremities: no edema Gastrointestinal (Abdomen): normal bowel sounds, soft, nontender, no hepatosplenomegaly Musculoskeletal: no cyanosis or clubbing, extremities motor strength 5/5 Skin: no rashes, warm and dry Neurologic: PERRL, EOMI, accommodation nl, no face palsy, no dysarthria Psychiatric: A+Ox3, euthymic affect Genitourinary: no CVA tenderness Results & Data Results & Data Vital Signs (Past 12 Hours) Vital Signs Temp Pulse Pulse Resp BP BP Pulse Ox 03/31/24 20:19 03/31/24 19:04 100 H 17 146/89 H 95 03/31/24 16:35 120 H 17 95 03/31/24 16:35 117 H 24 146/89 H 94 03/31/24 16:14 37.7 C H 119 H 18 185/92 H 98 O2 Del Method 03/31/24 20:19 Room Air 03/31/24 19:04 Room Air 03/31/24 16:35 Room Air 03/31/24 16:35 Room Air 03/31/24 16:14 Room Air Laboratory Results Short CBC 03/31/24 Range/Units 16:26 WBC 11.60 H (4.8-10.8) K/ul Hgb 16.1 (14.0-18.0) g/dl Hct 46.9 (42.0-52.0) % Plt Count 217 (130-400) K/uL BMP 03/31/24 16:26 Sodium 132 L Potassium 4.4 Chloride 96 L Carbon Dioxide 25 BUN 22 Creatinine 1.57 H Glucose 176 H Calcium 10.1 Liver Function 03/31/24 Range/Units 16:26 Total Bilirubin 1.4 H (0.2-1.0) mg/dl AST 18 (13-39) U/L ALT 25 (7-52) U/L Alkaline Phosphatase 71 (34-104) U/L Albumin 4.5 (3.4-5.0) gm/dl Urine 03/31/24 Range/Units 16:39 Urine Color Yellow Urine Appearance Turbid A (Clear) Urine pH 6.0 (4.5-7.5) Ur Specific Hayes 1.015 (1.000-1.030) Urine Protein 3+ H (Negative) Urine Glucose (UA) 1+ H (Negative) Diagnostic Findings Abdomen/Pelvis CT 03/31/24 16:40 CT OF THE ABDOMEN AND PELVIS WITHOUT CONTRAST CLINICAL HISTORY: Abdominal pain, fever and dysuria. COMPARISON STUDY: CT of the abdomen and pelvis 02/12/2023. TECHNIQUE: Axial images of the abdomen and pelvis were obtained without IV contrast. Images were reviewed in the axial, sagittal, and coronal planes. Automated exposure control was utilized for the study. A dose lowering technique was utilized adhering to the principles of ALARA. FINDINGS: No pneumatosis, free air or portal venous gas is present. Calcification within the right renal sinus is likely vascular in etiology. There are no urinary calculi and there is no hydronephrosis. There is a left renal cortical calcification. Water attenuation 4.5 cm left renal lesion is suboptimally assessed on this unenhanced exam but favors a cyst. There is mild symmetric bilateral perinephric infiltration, unchanged. Mild bladder wall thickening with minimal adjacent stranding is present. Evaluation of the remainder of the abdomen and pelvis is suboptimal on this unenhanced exam. The liver, spleen, adrenal glands and pancreas are unremarkable. Multiple calcific gallstones within the gallbladder are present. There is no pericholecystic or peripancreatic stranding. No evidence for a bowel obstruction. Oral contrast from prior imaging study within the left colon and rectum is present. No acute fractures are identified within the visualized skeletal structures. IMPRESSION: 1. No urinary calculi or hydronephrosis. 2. Mild bladder wall thickening with minimal adjacent stranding. This could be correlated with urinalysis to exclude cystitis. 3. No bowel obstruction. Normal appendix. 4. Cholelithiasis. ACT 112: Negative or not required by law. Electronically signed by: Clarence Ventura M.D. 03/31/2024 5:[address] 03/31/24 16:40 CT OF THE HEAD WITHOUT CONTRAST CLINICAL HISTORY: Headache. COMPARISON STUDY: MRI of the brain December 12, 2009. Head CT February 12, 2023. TECHNIQUE: Helical axial images of the head were obtained without IV contrast. Automated exposure control was utilized for the study. A dose lowering technique was utilized adhering to the principles of ALARA. FINDINGS: No acute intracranial hemorrhage, midline shift or mass effect is present. The ventricular system is unremarkable. The basal cisterns are patent. No extra-axial collections are present. There are no findings to suggest acute dural sinus thrombosis or acute territorial infarct. No significant calvarial abnormalities are present. Visualized portions of the sinuses and mastoid air cells are clear. IMPRESSION: No acute intracranial findings. ACT 112: Negative or not required by law. Electronically signed by: Clarence Ventura M.D. 03/31/2024 5:29 PM Chest X-Ray 03/31/24 16:43 XR chest 1V portable CLINICAL HISTORY: Shortness of breath. COMPARISON STUDY: Chest CT December 29, 2013. Chest radiograph February 17, 2023. FINDINGS: Status post median sternotomy. There are mediastinal surgical clips. Lung volumes are normal. Lungs are clear. There is no pneumothorax or pleural effusion. Cardiac size is normal. Mediastinal contours are normal. There is no evidence for pulmonary edema. IMPRESSION: No acute cardiopulmonary findings. ACT 112: Negative or not required by law. Electronically signed by: Clarence Ventura M.D. 03/31/2024 4:54 PM Code Status & VTE Plan VTE Prophylaxis Plan VTE Prophylaxis will be ordered: Yes Supervising Physician Co-Signing Physician Notes Pt was seen and examined by myself, Mari Herrmann MD on the day of service. Care was coordinated with NGOC Hall. 78yoM failing outpt treatment for complicated UTI. Presenting as partially treated sepsis, was on po cefdinir. No acute distress on exam, abdomen nontender. Continue with IV cefepime, follow urine and blood cultures. Urology consulted, appreciate further recs. Otherwise as above. I spent a total [id number] coordinating, documenting, and providing care for this patient excluding time spent in the performance of separately billed services
[2024-03-31] MEDS: allopurinoL 300 MG TAB PO SCH (22:23)
[2024-03-31] MEDS: HEPARIN SOD 5,000 UNIT/0.5 ML VIAL SQ SCH (22:23)
[2024-03-31] MEDS: ASPIRIN 81 MG ECTAB PO SCH (22:23)
[2024-03-31] MEDS: CEFEPIME 2,000 MG in SYRINGE 0 ML IV SCH (22:29)
[2024-03-31] MEDS: INSULIN ASPART PER UNIT CHARGE SC SCH (22:47)
--- NOTE | 2024-03-31 23:19 | Ultrasound Report ---
Exam(s): US RENAL EXAM: US Retroperitoneal Limited, Renal CLINICAL HISTORY: Reason for exam: UTI, evaluate for kidney stone. TECHNIQUE: Real-time limited ultrasound of the retroperitoneum with image documentation. COMPARISON: None. FINDINGS: Right kidney: 11.7 cm in length.. No stones. No solid mass. No hydronephrosis. Left kidney: 11.5 cm in length. There is a 8 mm echogenic focus with faint shadowing. No solid mass. No hydronephrosis. A 3.9 x 3.0 x 3.3 cm cortical cyst with septations. Other findings: There is uniform 4 mm urinary bladder wall thickening. . IMPRESSION: A 3.9 cm left renal complex cyst/Bosniak category 2F cyst. Recommend follow-up. Likely a 8 mm left renal nonobstructive calculus present. No hydronephrosis. Uniform 4 mm bladder wall thickness, possibly cystitis. . Electronically signed by: Kana White MD, KLAUDIA 03/31/24 23:18 PM
[2024-04-01] MEDS: ACETAMINOPHEN 325 MG TAB PO PRN (00:55)
--- OUTSIDE RECORDS SUMMARY | 2024-04-01 01:49 | External Medical Summary | Summary of Care ---
Author Name Unknown Organization [facility] Address [address] [place] [address] Phone [phone] Care Team Providers Care Roll Cleaner Name Role Phone Fadi Scott DO Primary Care Provider [phone] Reason for Referral * Precert (Within 10 days (routine)) - Pending Review Specialty Diagnoses / Procedures Referred By Keisha byrd Referred To Contact Radiology Diagnoses Hydronephrosis of right kidney Procedures CT UROGRAPHY W WO CONTRAST Bry Marrufo MD [address] [place] [address] Referral ID Status Reason Start Date Expiration Date V isits Requested Visits Authorized [id number] Pending Review 03/27/2024 999 999 * Evaluate & Treat - Unlimited Visits (Within 10 days (routine)) - Authorized Specialty Diagnoses / Procedures Referred By Keisha byrd Referred To Contact Urology Diagnoses Hydronephrosis of right kidney E. coli UTI Bilateral nephrolithiasis Dk García MD [address] [place] [address] Referral ID Status Reason Start Date Expiration Date Visits Requested Visits Authorized [id number] Authorized Specialty Services Required 03/27/2024 999 999 Question Answer Referral Priority Within 10 days (routine) Where should this appointment be scheduled? [facility] What is the patient being referred for? Other Conditions Reason for Visit * Reason Onset Date Comments Test Results 03/26/2024 Lmtcb 03/27 Appointment 03/26/2024 Encounter Details Date Type Department Care Team (Late st Contact Info) Description 03/26/2024 Telephone Laboratory, [address] [id number] Dk García MD [address] [place] [address] Test Results ([facility] 03/27); Appointment Allergies Active Allergy Reactions Criticality Noted Date Comments Atorvastatin Calcium 05/11/2010 Marked elevation CK Niacin Flushing,Other (Please comment) 05/11/2010 "pins and needles" documented as of this encounter (statuses as of 03/28/2024) Medications Medication Sig Dispensed Refills Start Date End Date Status ASPIRIN 81 MG PO CHEWIndications:S/P angioplasty with stent 1 Tab Oral Daily 30 11 12/15/2009 Active COQ-10 200 MG PO CAPS once daily Act rosalina Docusate Sodium 50 MG Oral Capsule Take by mouth 2 times a day. Active Multiple Vitamins-Minerals (MULTIVITAL) chewable tablet Take 1 Tablet by mouth in the morning. Active Blood Glucose Monitoring Suppl (BLOOD GLUCOSE MONITOR SYSTEM) w/Device KITIndications:Type 2 diabetes mellitus with hemoglobin A1c goal of less than 7.0% (HCC) Use daily to test blood sugar. E11.9 1 Kit 07/08/2018 Active Rosuvastatin Calcium 5 MG Oral Tablet (Crestor)Indications: Type 2 diabetes mellitus with hemoglobin A1c goal of less than 7.0% (HCC),Dyslipidemia, goal LDL below 70 TAKE 1 TABLET 4 TIMES A WEEK ON MONDAYS, WEDNESDAYS, FRIDAYS AND SATURDAYS 48 Tab 3 03/09/2021 Active Additional Information Patient not taking.Reported on 03/18/2024 Nitroglycerin 0.4 MG Sublingual Tablet Sublingual (Nitrostat) 12/20/2021 Active diphenhydrAMINE HCl 25 MG Oral Capsule (Benadryl) Take 1 Capsule by mouth at bedtime as needed. Active FreeStyle LancetsIndications:Ty pe 2 diabetes mellitus with hemoglobin A1c goal of less than 7.0% (HCC) Test blood sugar once daily Dx E11.9 300 Each 1 05/14/2023 Active Metoprolol Succinate ER 100 MG Oral Tablet Extended Release 24 Hour (toPROL XL) Take 1 Tablet by mouth in the morning. 90 Tablet 3 05/14/2023 Active Allopurinol 300 MG Oral Tablet (Zyloprim)Indications :Gout One pill by mouth once a day- for gout prevention 90 Tablet 3 07/12/2023 Active Spironolactone 25 MG Oral Tablet (Aldactone)Indication s:Kidney disease, chronic, stage III (GFR 30-59 ml/min) ([facility]) Take 1 Tablet by mouth in the morning. 90 Tablet 2 10/30/2023 Active metFORMIN HCl ER 500 MG Oral Tablet Extended Release 24 Hour (Glucophage XR) (1) pill twice daily 180 Tablet 2 10/30/2023 Active FreeStyle Lite Test In Vitro Strip (Glucose Blood)Indications:Typ e 2 diabetes mellitus with hemoglobin A1c goal of less than 7.0% ([facility]) Use with blood glucose meter once daily. E11.9 300 Strip 1 11/26/2023 Active FreeStyle Lite w/Device Kit Use as directed. 1 Kit 12/19/2023 Active Trulicity 4.5 MG/0.5ML Subcutaneous Solution Pen-injector (Dulaglutide)Indicati ons:Type 2 diabetes mellitus with stage 3a chronic kidney disease and hypertension ([facility]) Inject 4.5 mg under the skin once a week. 6 mL 3 01/01/2024 Active Clopidogrel Bisulfate 75 MG Oral Tablet (Plavix)Indications:C oronary atherosclerosis of [place] coronary artery Take 1 Tablet by mouth in the morning. 90 Tablet 1 03/24/2024 Active Hospital, Clinic, or Other Facility Administered Medication Ordered Dose Route Frequency Start Date End Date Status sodium chloride 0.9 % flush/inj 10 mL 10 mL IV PUSH ONCE 03/26/2024 03/27/2024 Ended documented as of this encounter (statuses as of 03/28/2024) Active Problems Problem Noted Date Diagnosed Date Renal cyst, acquired 02/13/2024 Elevated prostate specific antigen (PSA) 024 PAD (peripheral artery disease) 10/26/2021 Type 2 diabetes mellitus wit h stage 3a chronic kidney disease and hypertension 01/04/2021 Overview: Per CKD protocol Stage 3a chronic kidney disease 09/29/2020 S/P aortic valve replacement 03/12/2018 Mild obstructive sleep apnea-hypopnea syndrome 1 HTN, goal below 140/90 05/27/2014 Statin intolerance 01/22/2014 AVR/ CABG 05/12/2010 Chronic ischemic heart disease 05/11/2010 S/P angioplasty with stent 12/15/2009 Dyslipidemia, goal LDL below 70 08/05/2009 Overview: Per Lipid Taxonomy. Sensorineural hearing loss 07/16/2009 Chronic rhinitis 07/16/2009 Type 2 diabetes mellitus wit h hemoglobin A1c goal of less than 7.0% 06/24/2009 Overview: Per Diabetes Taxonomy. DM type 2 causing eye disease 06/24/2009 Overview: Per Diabetes Taxonomy. Old myocardial infarct 03/18/2009 Overview: Modified by Acute HI Protocol #5. 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 OF EMMONAK CORONARY VESSEL 09/20/2006 VARIANTS OF MIGRAINE WITHOUT MENTION OF INTRACTABLE MIGRAINE 01/25/1994 Gout Benign neoplasm of colon Overview: hyperplastic/ repeat colonoscopy in 5 yrs documented as of this encounter (statuses as of 03/28/2024) Resolved Problems Problem Noted Date Diagnosed Date Resolved Date Type 2 diabetes mellitus wit h stage 3 chronic kidney disease and hypertension 03/12/2018 01/07/20 Overview: Per CKD protocol IPMN (intraductal papillary mucinous neoplasm) 12/06/2017 11/17/2022 Overview: Recheck in 11/2019 Prostatic obstruction 07/02/20162016 Rectal bleeding 07/02/2016 05/29/2017 [place] (nonalcoholic steatohepatitis) 12/25/2015 08/09/2016 Kidney disease, chronic, sta ge III (GFR 30-59 ml/min) 05/27/2014 04/13/2018 HTN, goal below 130/80 06/12/201205/27 HTN, goal below 140/80 04/15/201206/12 Overview: Per HTN Protocol #27. Central sleep apnea 03/26/2012 06/14/20 Overview: 02/2012 PSG - AHI 39.2 T&B Medical Hemorrhoids 02/26/2012 03/12/2018 CKD (chronic kidney disease), stage II 12/13/2011 05/27/2014 Pain of right leg 10/03/2011 05/29/2017 LUC Research Other*[id number] 12/15/2009 07/31/2014 Overview: Patterns of Non-Adherence to Anti-Platelet Regimens in Stented Patients PI: Dr. Arnold RC: Jenny Fitch RN EXAMINATION OF PARTICIPANT I N CLINICAL TRIAL- genomics 12/09/2009 12/10/2009 Overview: Renamed Per Clinical Trials Billing Project. Study Titile: Genomics Markers for Patients with Cardiovascular Disease Project # [id number] PI: Tara Browning MD Please call [phone] with study related questions GENOMICS CARDIO RESEARCH OTHER*[id number] 12/09/2009 10/03/2016 Overview: Renamed Per Clinical Trials Billing Project. Study Titile: Genomics Markers for Patients with Cardiovascular Disease Project # [id number] PI: Tara Browning MD Please call [phone] with study related questions HTN, goal below 130/80 09/22/200904/18 Overview: Per HTN Taxonomy. Dyspnea and respiratory abnormality 07/16/2009 05/29/2017 Overview: ICD-10 update of inactive term Smell and taste disorder 07/16/200910/2016 DM type 2 causing eye disease 12/24/2006 06/24/2009 Overview: Per Diabetes Taxonomy. ADVANCE DIRECTIVE INFORMATION 09/20/2006 03/12/2018 Overview: Yes, Patient instructed to provide copy of advance directive for provider to review and to be scanned into Electronic Medical Record Acute inferior myocardial infarction 04/04/2005 03/18/2009 Overview: Modified by Acute HI Protocol #5. TUBULOVILLOUS POLYP OF RECTUM 01/20/2005 05/29/2017 Mixed dyslipidemia 11/07/2004 9 Overview: Per Lipid Taxonomy. Type 2 diabetes mellitus wit h hemoglobin A1c goal of less than 7.0% 08/08/2002 06/24/2009 Overview: Per Diabetes Taxonomy. ICD-10 update of inactive term HTN, goal below 140/90 09/22 Overview: Per HTN Taxonomy. documented as of this encounter (statuses as of 03/28/2024) Immunizations Name Administration Dates Next Due COVID-19 mRNA, LNP-s, No Pre serve, 2-Dose Series (Moderna) 10/20/2020,09/17/2020 COVID-19, mRNA, LNP-s, PF, B ooster, 100mcg/0.5mg (Moderna) 12/14/2021,06/20/2021 Covid-19, Mrna, Lnp-s, Pf, B ivalent, 50 Mcg, IM, 12 yrs and above (Moderna) 01/25/2023 Diptheria/Tetanus (Adult) 02/18/1987 H1N1 2009 Influenza, IM 08/31/2009 Pneumococcal Conjugate Vacc, 13 Valent (Prevnar) 12/25/2014 Pneumococcal Polysaccharide PPV23 (Pneumovax) 05/25/2016,06/09/2005 Season Influenza, Quad, PF, Adjuvanted, 65+ Yrs, IM (FLUAD) 05/18/2020 Seasonal Influenza Virus Vac cine, Unspecified Formulation 06/29/1998 Seasonal Influenza, PF, 6 M & above, IM , (FluLaval or Fluzone) 06/09/2019,06/17/2018,05/29/2017 Seasonal Influenza, Quadriva lent Hd (Fluzone Hd) 04/28/2022,05/03/2021 Seasonal Influenza, Quadriva lent, No Preserve, IM 05/25/2016,05/28/2009,06/26/2008,05/28,07/03/2006,06/09/2005,06/15/20,06/16/2002,06/09/1999,06/29/1998 Seasonal Influenza, Split, I IV3, With Preserve, Inj 04/28/2015,05/27/2014,05/30/2013,04/28,06/08/2011,06/10/2010,05/28/20 09,06/26/2008,06/24/2007,07/03/2006,1 ,06/15/2003,06/16/2002,06/09 TD - Tetanus/Diptheria (ADULT) 11/07/1999 TD, Preservative Free 11/07/1999,02/18/1987 TDAP (age 10 and older)(Boostrix) 03/26/2020,03/26/2030 TDAP, Age 7 and older, IM (Adacel) 01/21/2010 Varicella Zoster Vaccine (Adult) 08/29/2012 Zoster Vaccine Recombinant (Shingrix) 06/30/2020 ,03/26/2020 05/27/2020 documented as of this encounter Social History Tobacco Use Types Packs/Day Years Used Date Smoking Tobacco: Former Cigarettes 0 08/27/1967 - 08/27/1969 Smokeless Tobacco: Former Alcohol Use Standard Drinks/Week Comments Yes 0 (1 standard drink = 0.6 oz pur e alcohol) occasional PHQ-2 Answer Date Recorded PHQ Adult Total Score 0 01/01/2024 Hunger Vital Sign Answer Date Recorded Within the past 12 months, y ou worried that your food would run out before you got the money to buy more. Patient declined Within the past 12 months, t he food you bought just didn't last and you didn't have money to get more. Patient declined Utilities Answer Date Recorded Do you have trouble paying y our heating, water, or electric bill? (Adult - for ages 18 years and over) Not on file 02/12/2024 Is your family able to pay t he heat, water, or electric bill? (Household - for ages 0-17 years) Not on file 02/12/2024 Does your family have access to good internet? (Household - for ages 0-17 years) Not on file 02/12/2024 Social Connections Answer Date Recorded How often do you feel lonely or isolated from those around you? (Adult - for ages 18 years and over) Not on file 02/12/2024 Sex and Gender Information Value Date Recorded Sex Assigned at Male 05/28/2020 2:09 PM EDT Gender Identity Male 05/28/2020 2:09 PM EDT Sexual Orientation Straight 05/28/2020 2: 09 PM EDT Job Start Date Occupation Industry Not on file Not on file Not on file documented as of this encounter Miscellaneous Notes * Telephone Encounter - Tiny Alarcon LPN - 03/28/2024 9:16 AM EDT Spoke with pt, explained below. Patient agreeable to CT scan and phone appointment with Dr Marrufo afterwards to discuss results. Please keep Oct appointment as scheduled also. Thank you Lotus * Telephone Encounter - Benitez Manjarrez OSA - 03/28/2024 9:05 AM EDT Called pt to schedule. Requested to speak with nurses prior to scheduling * Telephone Encounter - Tamika Wilks OSA - 03/28/2024 8:16 AM EDT Patient returning call please call him back on the home number * Telephone Encounter - Tiny Alarcon LPN - 03/27/2024 4:09 PM EDT lmtcb * Addendum Note - Bry Marrufo MD - 03/27/2024 4:03 PM EDTAddended by: BRY MARRUFO on: 03/27/2024 04:03 PM Modules accepted: Orders * Telephone Encounter - Bry Marrufo MD - 03/27/2024 4:[address] urogram ordered. Telephone visit to review results can be scheduled. Keep appointment as scheduled. Thanks, HM * Telephone Encounter - Clotilde Power, MED [employer] - 03/27/2024 11:37 AM EDT Patient aware and receptive to instructions. If he isn't contacted with an appointment for Dr. Marrufo he will call back. * Addendum Note - Dk García MD - 03/27/2024 10:43 AM EDTAddended by: DK GARCÍA on: 03/27/2024 10:43 AM Modules accepted: Orders * Telephone Encounter - Dk García MD - 03/27/2024 10:36 AM EDT Recent ultrasound right upper quadrant showed new mild right hydronephrosis, gallstones and gallbladder sludge no evidence of acute cholecystitis. had symptoms of fever and diagnosed with UTI and treated.Had abnormal LFT without any GI symptoms, alt improved CT abdomen and pelvis-suggestion of mild right hydronephrosis, no obstructing ureteral calculus seen, nonobstructing bilateral renal calculi measuring up to 8 mm on the left, gallstones. -recommend Urology follow-up and consider CT urogram to exclude occult ureteral lesion. -patient followed by Dr. Marrufo pl todd earlier appt with him. -will route to him for further advice reg imaging * Telephone Encounter - Go Benavidez OSA - 03/26/2024 6:54 PM EDT [facility]- The radiologist discovered an unexpected or indeterminate finding on Poncho Guan ([id number]) and asks that you review the following report. Study Type:CT ABD/PELVIS W IV AND W ORAL CONTRAST Date of Study: 03/26/2024 IMPRESSION: 1. Mild fullness of the right renal collecting system suggesting mild right hydronephrosis. No obstructing ureteral calculus is identified. Consider urology consultation. CT urogram may be helpful toexclude an occult ureteral lesion. 2. Nonobstructing bilateral renal calculi measure up to approximately 8 mm on the left. 3. Cholelithiasis. Please respond to this encounter to acknowledge receipt of this message and take responsibility to ensure this report is reviewed. Thank you, SAÚL Salinas Client Service Rep [facility] documented in this encounter Plan of Treatment Upcoming Encounters Date Type Department Care Team (Late st Contact Info) Description 04/25/2024 8:45 AM EDT Office Visit Orthopaedics [facility] [address] [place] [address] Elmer Lawler MD [address] [place] [address] 06/02/2024 3:45 PM EDT Office Visit Urology, [facility] [address] [place] [address] Bry Marrufo MD [address] [place] [address] Scheduled Orders Name Type Priority Associated Diagnoses Orde r Schedule CT UROGRAPHY W WO CONTRAST Medical Imaging Routine Hydronephrosis of right kidney Expected: 03/27/2024, Expires: 04/27/2025 Scheduled Referrals Name Type Priority Associated Diagnoses Orde r Schedule ADULT/PEDS UROLOGY REFERRAL OP Referral Within 10 days (routine) Hydronephrosis of right kidney E. coli UTI Bilateral nephrolithiasis Ordered: 03/27/2024 Health Maintenance Due Date Last Done Comments COVID-19 Vaccine (2022- season) 2023 01/25/2023, 12/14/2021, 06/20/2021, Additional history exists Influenza Vaccine (FLU shot) (#1) 2024 04/28/2022, 05/03/2021, 05/18/2020, Additional history exists Colonoscopy 05/09/2024 05/09/2019, 11/25, 01/20/2011, Additional history exists B-12 06/07/2024 06/07/2023, 03/0 08/2021, 05/28/2020 CKD PHOS USE SMARTSET 08070 06/07/202405/27, 11/15/2021, 09/23/2020, Additional history exists Diabetic Foot Exam 06/11/2024 06/11/2023, 0 10/26/2021, 12/07/2020, Additional history exists HbA1c 06/29/2024 12/28/2023, 05/27, 11/08/2022, Additional history exists GFR 09/21/2024 03/21/2024, 02/25, 03/14/2024, Additional history exists Diabetic Eye Exam 10/18/2024 10/18/2023, , 04/25/2021, Additional history exists Albumin/Creatinine Ratio 12/27/2024 024, 11/08/2022, 10/26/2021, Additional history exists Depression Screening 12/31/2024 01/01/2024 CKD HGB USE SMARTSET 12130 03/14/202503/14, 03/14/2024, 06/07/2023, Additional history exists DTaP,Tdap,and Td Vaccines (4 - Td or Tdap) 03/26/2030 03/26/2020, 01/21/2010, 01/21/2010, Additional history exists Pneumococcal Vaccine: 65+ Years Completed 05/25/2016, 12/25/2014, 06/09/2005 RETIRED - COLONOSCOPY-EVERY 5 YRS AGES 18-100 Discontinued 05/09/2019, 12/10/2013, 01/20/2011, Additional history exists Zoster Vaccines Completed 06/30/2020, 02/26, 08/29/2012 HPV (Gardasil) Vaccine Aged Out No lo nger eligible based on patient's age to complete this topic Hepatitis B Vaccine Aged Out No longe r eligible based on patient's age to complete this topic MENINGOCOCCAL (MENACTRA/MENVEO) Aged Out No longer eligible based on patient's age to complete this topic documented as of this encounter Medical Devices Implanted Type Area Fisher Hand Line Device Identifier Shelf Expiration Date Model / Serial / Lot Sut Steel 6 [id number] - [id number] [place]planted:[place]2010 [place] [facility] [place]: Chest DO NOT USE 02/24/2015 [id number] / / [id number] Valve Heart Aortic Mag Eas 21m - [id number] Implanted:Qty: 1 on 05[place]11/2010 [place] [facility] [place]: Heart [employer] TOVA 03/21/2014 [id number] / [id number] / Graft Marker Coronary - [id number] Implanted:Qty: 2 on 05[place]11/2010 [place] [facility] [place]: Heart VM CARDIO VASCULAR 04/27/2012 [id number] / / [id number] documented as of this encounter Visit Diagnoses Diagnosis Hydronephrosis of right kidney- Primary Hydronephrosis E. 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 Question Answer Comments Discussion of Advance Directives occurred with: Not Discussed Does the patient have a Living Will? No Does the patient have Health Care Power of Attor boo? No * Full Code Date Activated Date Inactivated Comments 02/24/2010 1:41 PM 02/25/2010 1:05 PM This order ref lects the patients wishes and were consensually agreed upon. Question Answer Comments Discussion of Advance Directives occurred with: Not Discussed Does the patient have a Living Will? No Does the patient have Health Care Power of Attor boo? No Care Teams Roll Cleaner Relationship Specialty Start Date End Date Fadi Scott DO [address] [place] [address] PCP - General Family Medicine 08/09/16 documented as of this encounter
--- OUTSIDE RECORDS SUMMARY | 2024-04-01 01:49 | External Medical Summary | Summary of Care ---
Author Name Unknown Organization [facility] Address [address] [place] [address] Phone [phone] Care Team Providers Care Concrete Mixer Name Role Phone Fadi Scott DO Primary Care Provider [phone] Reason for Referral * Precert (Within 10 days (routine)) - Pending Review Specialty Diagnoses / Procedures Referred By Keisha byrd Referred To Contact Radiology Diagnoses Hydronephrosis of right kidney Procedures CT UROGRAPHY W WO CONTRAST Bry Marrufo MD [address] [place] [address] Referral ID Status Reason Start Date Expiration Date V isits Requested Visits Authorized [id number] Pending Review 03/27/2024 999 999 * Evaluate & Treat - Unlimited Visits (Within 10 days (routine)) - Authorized Specialty Diagnoses / Procedures Referred By Keisha byrd Referred To Contact Urology Diagnoses Hydronephrosis of right kidney E. coli UTI Bilateral nephrolithiasis Dk García MD [address] [place] [address] Referral ID Status Reason Start Date Expiration Date Visits Requested Visits Authorized [id number] Authorized Specialty Services Required 03/27/2024 999 999 Question Answer Referral Priority Within 10 days (routine) Where should this appointment be scheduled? [facility] What is the patient being referred for? Other Conditions Reason for Visit * Reason Onset Date Comments Test Results 03/26/2024 Lmtcb 03/27 Appointment 03/26/2024 Encounter Details Date Type Department Care Team (Late st Contact Info) Description 03/26/2024 Telephone Laboratory, [address] [address] Dk García MD [address] [place] [address] Test Results ([facility] 03/27); Appointment Allergies Active Allergy Reactions Criticality [...] stage III (GFR 30-59 ml/min) ([facility]) Take 1 Tablet by mouth in the morning. 90 Tablet 2 10/30/2023 Active metFORMIN HCl ER 500 MG Oral Tablet Extended Release 24 Hour (Glucophage XR) (1) pill twice daily 180 Tablet 2 10/30/2023 Active FreeStyle Lite Test In Vitro Strip (Glucose Blood)Indications:Typ e 2 diabetes mellitus with hemoglobin A1c goal of less than 7.0% ([facility]) Use with blood glucose meter once daily. E11.9 300 Strip 1 11/26/2023 Active FreeStyle Lite w/Device Kit Use as directed. 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 6 mL 3 01/01/2024 Active Clopidogrel Bisulfate 75 MG Oral Tablet (Plavix)Indications:C oronary atherosclerosis of [place] coronary artery Take 1 Tablet by mouth [...] myocardial infarct 03/18/2009 Overview: Modified by Acute [place] Protocol #5. 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 OF [place] CORONARY VESSEL 09/20/2006 VARIANTS OF MIGRAINE WITHOUT [...] of right leg 10/03/2011 05/29/2017 LUC Research Other*[id number] 12/15/2009 07/31/2014 Overview: Patterns of Non-Adherence to Anti-Platelet Regimens in Stented Patients PI: Dr. Arnold RC: Jenny Fitch RN EXAMINATION OF PARTICIPANT I N CLINICAL TRIAL- genomics 12/09/2009 12/10/2009 Overview: Renamed Per Clinical Trials Billing Project. Study Titile: Genomics Markers for Patients with Cardiovascular Disease Project # [id number] PI: Tara Browning MD Please call [phone] with study related questions GENOMICS CARDIO RESEARCH OTHER*[id number] 12/09/2009 10/03/2016 Overview: Renamed Per Clinical Trials Billing Project. Study Titile: Genomics Markers for Patients with Cardiovascular Disease Project # [id number] PI: Tara Browning MD Please call [phone] with study related questions HTN, goal below [...] infarction 04/04/2005 03/18/2009 Overview: Modified by Acute [place] Protocol #5. TUBULOVILLOUS POLYP OF RECTUM 01/20/2005 [...] encounter Miscellaneous Notes * Telephone Encounter - Benitez Manjarrez OSA [...] * Telephone Encounter - Clotilde Power, MED ASSIST - 03/27/2024 11:37 AM EDT Patient aware [...] occult ureteral lesion. -patient followed by Dr. Marrufo, pl todd earlier appt with him. -will route to him for further advice reg imaging * Telephone Encounter - Go Benavidez OSA - 03/26/2024 6:54 PM EDT Hello- The radiologist discovered an unexpected or indeterminate finding on Poncho Guan ([id number]) and asks that you review the following [...] reviewed. Thank you, SAÚL Salinas Client Service [facility] documented in this encounter Plan of Treatment Upcoming Encounters Date Type Department Care Team (Late st Contact Info) Description 04/25/2024 8:45 AM EDT Office Visit Orthopaedics [facility] [address] [place] [address] Elmer Lawler MD [address] [facility] [place] [address] 06/02/2024 3:45 PM EDT [facility], [facility] [place] [address] Bry Marrufo MD [address] [facility] [place] [id number] Scheduled Orders Name Type Priority Associated Diagnoses [...] Due Date Last Done Comments COVID-19 Vaccine ( season) 2023 01/25/2023, 12/14/2021, 06/20/2021, Additional history exists Influenza Vaccine (FLU shot) (#1) 2024 04/28/2022, 05/03/2021, 05/18/2020, Additional history exists Colonoscopy 05/09/2024 05/09/2019, 11/25, 01/20/2011, Additional history exists B-12 06/07/2024 06/07/2023, 03/08/2021, 05/28/2020 CKD PHOS USE SMARTSET 13370 06/07/202405/27, 11/15/2021, 09/23/2020, Additional history exists Diabetic Foot Exam 06/11/2024 06/11/2023, 0 10/26/2021, 12/07/2020, Additional history exists HbA1c 06/29/2024 12/28/2023, 05/27, 11/08/2022, Additional history exists GFR 09/21/2024 03/21/2024, 02/25, 03/14/2024, Additional history exists Diabetic Eye Exam 10/18/2024 10/18/2023, , 04/25/2021, Additional history exists Albumin/Creatinine Ratio 12/27/2024 024, 11/08/2022, 10/26/2021, Additional history exists Depression Screening 12/31/2024 01/01/2024 CKD HGB USE SMARTSET 90338 03/14/202503/14, 03/14/2024, 06/07/2023, Additional history exists DTaP,Tdap,and [...] this encounter Medical Devices Implanted Type Area Hospice Executive Director Device Identifier Shelf Expiration Date Model / Serial / Lot Sut Steel 6 M654g - [id number] Implanted:Qty: 6 on 05/11/2010 at OR [facility] N/A: Chest DO NOT USE 02/24/2015 [id number] / / [id number] Valve Heart Aortic Mag Eas 21m - [id number] Implanted:Qty: 1 on 05/11/2010 at OR [facility] N/A: Heart [employer] TOVA 03/21/2014 [id number] / [id number] / Graft Marker Coronary - [id number] Implanted:Qty: 2 on 05/11/2010 at OR [facility] N/A: Heart VM CARDIO VASCULAR 04/27/2012 [id number] / / [id number] documented as of this encounter Visit Diagnoses Diagnosis Hydronephrosis of right kidney- Primary Hydronephrosis E. 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 No Care Teams Concrete Mixer Relationship Specialty Start Date End Date Fadi Scott DO [address] [place] [address] PCP - General Family Medicine 08/09/16 documented as of this encounter
--- OUTSIDE RECORDS SUMMARY | 2024-04-01 01:49 | External Medical Summary | Summary of Care ---
Author Name Unknown Organization [facility] Address [address] [place] [address] Phone [phone] Care Team Providers Care Baccarat Manager Name Role Phone Fadi Scott Primary Care Provider [phone] Reason for Referral * Precert (Within 10 days (routine)) - Authorized Specialty Diagnoses / Procedures Referred By Keisha byrd Referred To Contact Radiology Diagnoses Hydronephrosis of right kidney Procedures CT UROGRAPHY W WO CONTRAST Clayton, Bry Gallardo MD [address] [place] [address] Referral ID Status Reason Start Date Expiration Date V isits Requested Visits Authorized [id number] Authorized Precert 03/28/2024 09/24/2024 999 999 * Evaluate & Treat - Unlimited Visits (Within 10 days (routine)) - Authorized Specialty Diagnoses / Procedures Referred By Keisha byrd Referred To Contact Urology Diagnoses Hydronephrosis of right kidney E. coli UTI Bilateral nephrolithiasis Dk García MD [address] [place] [address] Referral ID Status Reason Start Date Expiration Date Visits Requested Visits Authorized [id number] Authorized Specialty Services Required 03/27/2024 999 999 Question Answer Referral Priority Within 10 days (routine) Where should this appointment be scheduled? [facility] What is the patient being referred for? Other Conditions Reason for Visit * Reason Onset Date Comments Test Results 03/26/2024 Lmtcb 03/27 Appointment 03/26/2024 Encounter Details Date Type Department Care Team (Late st Contact Info) Description 03/26/2024 Telephone Laboratory, [address] [address] Dk García MD [address] [place] [address] Test Results ([facility] 03/27); Appointment Allergies Active Allergy Reactions Criticality [...] hemoglobin A1c goal of less than 7.0% ([facility]) Use daily to test blood sugar. E11.9 [...] disease, chronic, stage III (GFR 30-59 ml/min) ([facility]) Take 1 Tablet by mouth in the morning. 90 Tablet 2 10/30/2023 Active metFORMIN HCl ER 500 MG Oral Tablet Extended Release 24 Hour (Glucophage XR) (1) pill twice daily 180 Tablet 2 10/30/2023 Active FreeStyle Lite Test In Vitro Strip (Glucose Blood)Indications:Typ e 2 diabetes mellitus with hemoglobin A1c goal of less than 7.0% ([facility]) Use with blood glucose meter once daily. E11.9 300 Strip 1 11/26/2023 Active FreeStyle Lite w/Device Kit Use as directed. 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 6 mL 3 01/01/2024 Active Clopidogrel Bisulfate 75 MG Oral Tablet (Plavix)Indications:C oronary atherosclerosis of [place] coronary artery Take 1 Tablet by mouth [...] myocardial infarct 03/18/2009 Overview: Modified by Acute [place] Protocol #5. 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 OF [place] CORONARY VESSEL 09/20/2006 VARIANTS OF MIGRAINE WITHOUT MENTION OF INTRACTABLE MIGRAINE 01/25/1994 Gout Benign neoplasm of colon Overview: hyperplastic/ repeat colonoscopy in 5 yrs documented as of this encounter (statuses as of 03/28/2024) Resolved Problems Problem Noted Date Diagnosed Date Resolved Date Type 2 diabetes mellitus wit h stage 3 chronic kidney disease and hypertension 03/12/2018 01/07/20 21 Overview: Per CKD protocol IPMN (intraductal papillary [...] of right leg 10/03/2011 05/29/2017 LUC Research Other*[id number] 12/15/2009 07/31/2014 Overview: Patterns of Non-Adherence to Anti-Platelet Regimens in Stented Patients PI: Dr. Arnold RC: Jenny Fitch RN EXAMINATION OF PARTICIPANT I N CLINICAL TRIAL- genomics 12/09/2009 12/10/2009 Overview: Renamed Per Clinical Trials Billing Project. Study Titile: Genomics Markers for Patients with Cardiovascular Disease Project # [id number] PI: Tara Browning MD Please call [phone] with study related questions GENOMICS CARDIO RESEARCH OTHER*[id number] 12/09/2009 10/03/2016 Overview: Renamed Per Clinical Trials Billing Project. Study Titile: Genomics Markers for Patients with Cardiovascular Disease Project # [id number] PI: Tara Browning MD Please call [phone] with study related questions HTN, goal below [...] infarction 04/04/2005 03/18/2009 Overview: Modified by Acute [place] Protocol #5. TUBULOVILLOUS POLYP OF RECTUM 01/20/2005 [...] encounter Miscellaneous Notes * Telephone Encounter - Viri Butts OSA - 03/28/2024 1:[address] scan is scheduled on 04/09/24. Lmom to arrange phone call for results. * Telephone Encounter - Tiny Alarcon LPN [...] be scheduled. Keep appointment as scheduled. Thanks, * Telephone Encounter - Clotilde Power, Response Biomedical - 03/27/2024 11:37 AM EDT Patient aware [...] exclude occult ureteral lesion. -patient followed by aroldo Paul todd earlier appt with him. -will route to him for further advice reg imaging * Telephone Encounter - Go Benavidez OSA - 03/26/2024 6:54 PM EDT Hello- The radiologist discovered an unexpected or indeterminate finding on Poncho Guan ([id number]) and asks that you review the following [...] reviewed. Thank you, SAÚL Salinas Client Service [facility] Medicine [place] documented in this encounter Plan of Treatment Upcoming Encounters Date Type Department Care Team (Late st Contact Info) Description 04/09/2024 12:45 PM EDT Imaging Radiology [facility] 1st Floor, [place] [address] [place] [address] 04/25/2024 8:45 AM EDT Office Visit Orthopaedics [facility] [address] [place] [address] Elmer Lawler MD [address] [place] [id number] 06/02/2024 3:45 PM EDT Office Visit Urology, [facility] [address] [place] [address] Bry Marrufo MD [address] [place] [address] Scheduled Orders Name Type Priority Associated Diagnoses [...] 03/0 08/2021, 05/28/2020 CKD PHOS USE SMARTSET 19261 06/07/202405/27, 11/15/2021, 09/23/2020, Additional history exists Diabetic Foot Exam 06/11/2024 06/11/2023, 0 10/26/2021, 12/07/2020, Additional history exists HbA1c 06/29/2024 12/28/2023, 05/27, 11/08/2022, Additional history exists GFR 09/21/2024 03/21/2024, 02/25, 03/14/2024, Additional history exists Diabetic Eye Exam 10/18/2024 10/18/2023, , 04/25/2021, Additional history exists Albumin/Creatinine Ratio 12/27/2024 024, 11/08/2022, 10/26/2021, Additional history exists Depression Screening 12/31/2024 01/01/2024 CKD HGB USE SMARTSET 44121 03/14/202503/14, 03/14/2024, 06/07/2023, Additional history exists DTaP,Tdap,and [...] this encounter Medical Devices Implanted Type Area Agency Manager Device Identifier Shelf Expiration Date Model / Serial / Lot Sut Steel 6 M654g - [id number] Implanted:Qty: 6 on 05/11/2010 at OR [facility] [place] N/A: Chest DO NOT USE 02/24/2015 M654G / / [id number] Valve Heart Aortic Mag Eas 21m - [id number] Implanted:Qty: 1 on 05/11/2010 at OR [facility] [place] N/A: Heart [employer] Media[employer] TOVA 03/21/2014 [id number] / [id number] / Graft Marker Coronary - [id number] Implanted:Qty: 2 on 05/11/2010 at OR [facility] [place] N/A: Heart VM CARDIO VASCULAR 04/27/2012 [id number] / / [id number] documented as of this encounter Visit Diagnoses Diagnosis Hydronephrosis of right kidney- Primary Hydronephrosis E. coli UTI Urinary tract infection, site not specified Bilateral nephrolithiasis documented in this encounter Advance Directives Documents on File Type Date Recorded Patient Theatrical Dresser Expl anation Advance Directives and Living Will 11/26/2006 LIVING WILL LIVING W ILL Power of Exhauster Engineer 11/26/2006 POWER OF A TTORNEY DURABLE HEALTHCARE POWER OF SURVEY SUPERINTENDENT * Full Code (Latest Code Status on [...] Power of Attor boo? No Care Teams Baccarat Manager Relationship Specialty Start Date End Date Fadi Scott DO [address] [place] [address] PCP - General Family Medicine 08/09/16 documented as of this encounter
--- OUTSIDE RECORDS SUMMARY | 2024-04-01 01:49 | External Medical Summary | Summary of Care ---
Author Name Unknown Organization [facility] Address [address] [place] [address] Phone [phone] Care Team Providers Care College Athletic Director Name Role Phone Fadi cSott DO Primary Care Provider [phone] Reason for Referral * Precert (Within 10 days (routine)) - Pending Review Specialty Diagnoses / Procedures Referred By Keisha byrd Referred To Contact Radiology Diagnoses Hydronephrosis of right kidney Procedures CT UROGRAPHY W WO CONTRAST Bry Marrufo MD [address] [place] [address] Referral ID Status Reason Start Date Expiration Date V isits Requested Visits Authorized [id number] Pending Review 03/27/2024 999 999 * Evaluate & Treat - Unlimited Visits (Within 10 days (routine)) - Authorized Specialty Diagnoses / Procedures Referred By Keisha byrd Referred To Contact Urology Diagnoses Hydronephrosis of right kidney E. coli UTI Bilateral nephrolithiasis Dk García MD [address] [place] [address] Referral ID Status Reason Start Date Expiration Date Visits Requested Visits Authorized [id number] Authorized Specialty Services Required 03/27/2024 999 999 Question Answer Referral Priority Within 10 days (routine) Where should this appointment be scheduled? [facility] What is the patient being referred for? Other Conditions Reason for Visit * Reason Onset Date Comments Test Results 03/26/2024 Lmtcb 03/27 Appointment 03/26/2024 Encounter Details Date Type Department Care Team (Late st Contact Info) Description 03/26/2024 Telephone Laboratory, [address] [address] Dk García MD [address] [place] [address] Test Results ([facility] 03/27); Appointment Allergies Active Allergy Reactions Criticality [...] stage III (GFR 30-59 ml/min) ([facility]) Take 1 Tablet by mouth in the morning. 90 Tablet 2 10/30/2023 Active metFORMIN HCl ER 500 MG Oral Tablet Extended Release 24 Hour (Glucophage XR) (1) pill twice daily 180 Tablet 2 10/30/2023 Active FreeStyle Lite Test In Vitro Strip (Glucose Blood)Indications:Typ e 2 diabetes mellitus with hemoglobin A1c goal of less than 7.0% ([facility]) Use with blood glucose meter once daily. E11.9 300 Strip 1 11/26/2023 Active FreeStyle Lite w/Device Kit Use as directed. 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 6 mL 3 01/01/2024 Active Clopidogrel Bisulfate 75 MG Oral Tablet (Plavix)Indications:C oronary atherosclerosis of [place] coronary artery Take 1 Tablet by mouth [...] myocardial infarct 03/18/2009 Overview: Modified by Acute [place] Protocol #5. 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 OF [place] CORONARY VESSEL 09/20/2006 VARIANTS OF MIGRAINE WITHOUT [...] of right leg 10/03/2011 05/29/2017 LUC Research Other*[id number] 12/15/2009 07/31/2014 Overview: Patterns of Non-Adherence to Anti-Platelet Regimens in Stented Patients PI: Dr. Arnold RC: Jenny Fitch RN EXAMINATION OF PARTICIPANT I N CLINICAL TRIAL- genomics 12/09/2009 12/10/2009 Overview: Renamed Per Clinical Trials Billing Project. Study Titile: Genomics Markers for Patients with Cardiovascular Disease Project # [id number] PI: Tara Browning MD Please call [phone] with study related questions GENOMICS CARDIO RESEARCH OTHER*[id number] 12/09/2009 10/03/2016 Overview: Renamed Per Clinical Trials Billing Project. Study Titile: Genomics Markers for Patients with Cardiovascular Disease Project # [id number] PI: Tara Browning MD Please call [phone] with study related questions HTN, goal below [...] infarction 04/04/2005 03/18/2009 Overview: Modified by Acute [place] Protocol #5. TUBULOVILLOUS POLYP OF RECTUM 01/20/2005 [...] encounter Miscellaneous Notes * Telephone Encounter - Tamika Wilks OSA [...] unexpected or indeterminate finding on Poncho Guan ([id number]) and asks that you review the following [...] Thank you, SAÚL Salinas Client Service Rep Diagnostic Medicine [place] documented in this encounter Plan of Treatment Upcoming Encounters Date Type Department Care Team (Late st Contact Info) Description 04/25/2024 8:45 AM EDT Office Visit Orthopaedics [facility] [address] [place] [address] Elmer Lawler MD [address] [place] [address] 06/02/2024 3:45 PM EDT [facility] [place] [address] Bry Marrufo MD [address] [place] [id number] Scheduled Orders Name Type Priority Associated Diagnoses [...] 01/20/2011, Additional history exists B-12 06/07/2024 06/07/2023, 0308/2021, 05/28/2020 CKD PHOS USE SMARTSET 78722 06/07/202405/27, 11/15/2021, 09/23/2020, Additional history exists Diabetic Foot Exam 06/11/2024 06/11/2023, 0 10/26/2021, 12/07/2020, Additional history exists HbA1c 06/29/2024 12/28/2023, 05/27, 11/08/2022, Additional history exists GFR 09/21/2024 03/21/2024, 02/25, 03/14/2024, Additional history exists Diabetic Eye Exam 10/18/2024 10/18/2023, , 04/25/2021, Additional history exists Albumin/Creatinine Ratio 12/27/2024 024, 11/08/2022, 10/26/2021, Additional history exists Depression Screening 12/31/2024 01/01/2024 CKD HGB USE SMARTSET 73439 03/14/202503/14, 03/14/2024, 06/07/2023, Additional history exists DTaP,Tdap,and [...] this encounter Medical Devices Implanted Type Area Smelter Operator Device Identifier Shelf Expiration Date Model / Serial / Lot Sut Steel 6 M654g - [id number] Implanted:Qty: 6 on 05/11/2010 at OR [facility] N/A: Chest DO NOT USE 02/24/2015 M654G / / [id number] Valve Heart Aortic Mag Eas 21m - [id number] Implanted:Qty: 1 on 05/11/2010 at OR [facility] N/A: Heart [id number] TOVA 03/21/2014 [id number] / [id number] / Graft Marker Coronary - [id number] Implanted:Qty: 2 on 05/11/2010 at OR [facility] N/A: Heart VM CARDIO VASCULAR 04/27/2012 [id number] / / [id number] documented as of this encounter Visit Diagnoses Diagnosis Hydronephrosis of right kidney- Primary Hydronephrosis E. coli UTI Urinary tract infection, site not specified Bilateral nephrolithiasis documented in this encounter Advance Directives Documents on File Type Date Recorded Patient Solid Waste Collector Expl anation Advance Directives and Living Will 11/26/2006 LIVING WILL LIVING W ILL Power of Wheel Blocker 11/26/2006 POWER OF A TTORNEY DURABLE HEALTHCARE POWER OF CERAMIC ARTIST * Full Code (Latest Code Status on [...] Power of Attor boo? No Care Teams College Athletic Director Relationship Specialty Start Date End Date Fadi Scott DO [address] [place] [address] PCP - General Family Medicine 08/09/16 documented as of this encounter
--- OUTSIDE RECORDS SUMMARY | 2024-04-01 01:50 | External Medical Summary | Summary of Care ---
Author Name Unknown Organization [facility] Address [address] [place] [address] Phone [phone] Care Team Providers Care Golf Ball Winder Name Role Phone Fadi Scott DO Primary Care Provider [phone] Reason for Referral * Precert (Within 10 days (routine)) - Pending Review Specialty Diagnoses / Procedures Referred By Keisha byrd Referred To Contact Radiology Diagnoses Hydronephrosis of right kidney Procedures CT UROGRAPHY W WO CONTRAST Bry Marrufo MD [address] [place] [address] Referral ID Status Reason Start Date Expiration Date V isits Requested Visits Authorized [id number] Pending Review 03/27/2024 999 999 * Evaluate & Treat - Unlimited Visits (Within 10 days (routine)) - Authorized Specialty Diagnoses / Procedures Referred By Keisha byrd Referred To Contact Urology Diagnoses Hydronephrosis of right kidney E. coli UTI Bilateral nephrolithiasis Dk García MD [address] [place] [address] Referral ID Status Reason Start Date Expiration Date Visits Requested Visits Authorized [id number] Authorized Specialty Services Required 03/27/2024 999 999 Question Answer Referral Priority Within 10 days (routine) Where should this appointment be scheduled? [facility] What is the patient being referred for? Other Conditions Reason for Visit * Reason Onset Date Comments Test Results 03/26/2024 CT ABD/PELVIS W IV AND W ORAL CONTRAST Encounter Details Date Type Department Care Team (Late st Contact Info) Description 03/26/2024 Telephone Laboratory, [address] [address] Dk García MD [address] [place] [address] Test Results (CT ABD/PELVIS W IV AND W ORA... Allergies Active Allergy Reactions Criticality Noted Date Comments Atorvastatin Calcium 05/11/2010 Marked elevation CK Niacin Flushing,Other (Please comment) 05/11/2010 "pins and needles" documented as of this encounter (statuses as of 03/27/2024) Medications Medication Sig Dispensed Refills Start Date [...] disease, chronic, stage III (GFR 30-59 ml/min) ([facility]) Take 1 Tablet by mouth in the morning. 90 Tablet 2 10/30/2023 Active metFORMIN HCl ER 500 MG Oral Tablet Extended Release 24 Hour (Glucophage XR) (1) pill twice daily 180 Tablet 2 10/30/2023 Active FreeStyle Lite Test In Vitro Strip (Glucose Blood)Indications:Typ e 2 diabetes mellitus with hemoglobin A1c goal of less than 7.0% ([facility]) Use with blood glucose meter once daily. E11.9 300 Strip 1 11/26/2023 Active FreeStyle Lite w/Device Kit Use as directed. 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 6 mL 3 01/01/2024 Active Clopidogrel Bisulfate 75 MG Oral Tablet (Plavix)Indications:C oronary atherosclerosis of [place] coronary artery Take 1 Tablet by mouth in the morning. 90 Tablet 1 03/24/2024 Active Hospital, Clinic, or Other Facility Administered Medication Ordered Dose Route Frequency Start Date End Date Status sodium chloride 0.9 % flush/inj 10 mL 10 mL IV PUSH ONCE 03/26/2024 03/27/2024 Ended documented as of this encounter (statuses as of 03/27/2024) Active Problems Problem Noted Date Diagnosed Date [...] myocardial infarct 03/18/2009 Overview: Modified by Acute [place] Protocol #5. 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 OF [place] CORONARY VESSEL 09/20/2006 VARIANTS OF MIGRAINE WITHOUT MENTION OF INTRACTABLE MIGRAINE 01/25/1994 Gout Benign neoplasm of colon Overview: hyperplastic/ repeat colonoscopy in 5 yrs documented as of this encounter (statuses as of 03/27/2024) Resolved Problems Problem Noted Date Diagnosed Date [...] of right leg 10/03/2011 05/29/2017 [employer] Other*[id number] 12/15/2009 07/31/2014 Overview: Patterns of Non-Adherence to Anti-Platelet Regimens in Stented Patients PI: Dr. Arnold RC: Jenny Fitch RN EXAMINATION OF PARTICIPANT I N CLINICAL TRIAL- genomics 12/09/2009 12/10/2009 Overview: Renamed Per Clinical Trials Billing Project. Study Titile: Genomics Markers for Patients with Cardiovascular Disease Project # [id number] PI: Tara Browning MD Please call [phone] with study related questions GENOMICS CARDIO RESEARCH OTHER*[id number] 12/09/2009 10/03/2016 Overview: Renamed Per Clinical Trials Billing Project. Study Titile: Genomics Markers for Patients with Cardiovascular Disease Project # [id number] PI: Tara Browning MD Please call [phone] with study related questions HTN, goal below [...] infarction 04/04/2005 03/18/2009 Overview: Modified by Acute AR Protocol #5. TUBULOVILLOUS POLYP OF RECTUM 01/20/2005 05/29/2017 Mixed dyslipidemia 11/07/2004 9 Overview: Per Lipid Taxonomy. Type 2 diabetes mellitus wit h hemoglobin A1c goal of less than 7.0% 08/08/2002 06/24/2009 Overview: Per Diabetes Taxonomy. ICD-10 update of inactive term HTN, goal below 140/90 09/22 Overview: Per HTN Taxonomy. documented as of this encounter (statuses as of 03/27/2024) Immunizations Name Administration Dates Next Due COVID-19 [...] as of this encounter Miscellaneous Notes * Addendum Note - Bry Marrufo MD - 03/27/2024 4:03 PM EDTAddended by: BRY MARRUFO on: 03/27/2024 04:03 PM Modules accepted: Orders * Telephone Encounter - Bry Marrufo MD - 03/27/2024 4:[address] urogram ordered. Telephone visit to review results can be scheduled. Keep appointment as scheduled. Thanks, HM * Telephone Encounter - Clotilde Power MED ASSIST - 03/27/2024 11:37 AM EDT [...] unexpected or indeterminate finding on Poncho Guan ([id number]) and asks that you review the following [...] Thank you, SAÚL Salinas Client Service Rep [facility] [place] documented in this encounter Plan of Treatment Upcoming Encounters Date Type Department Care Team (Late st Contact Info) Description 04/25/2024 8:45 AM EDT Office Visit Orthopaedics [facility] [address] [place] [address] Elmer Lawler MD [address] [place] [address] 06/02/2024 3:45 PM EDT Office Visit Urology, [facility] [address] [facility] [address] [place] [address] Bry Marrufo MD [address] [place] [address] Scheduled Orders Name Type Priority Associated Diagnoses [...] 03/0 08/2021, 05/28/2020 CKD PHOS USE SMARTSET 35019 06/07/202405/27, 11/15/2021, 09/23/2020, Additional history exists Diabetic Foot Exam 06/11/2024 06/11/2023, 0 10/26/2021, 12/07/2020, Additional history exists HbA1c 06/29/2024 12/28/2023, 05/27, 11/08/2022, Additional history exists GFR 09/21/2024 03/21/2024, 02/25, 03/14/2024, Additional history exists Diabetic Eye Exam 10/18/2024 10/18/2023, , 04/25/2021, Additional history exists Albumin/Creatinine Ratio 12/27/2024 024, 11/08/2022, 10/26/2021, Additional history exists Depression Screening 12/31/2024 01/01/2024 CKD HGB USE SMARTSET 96890 03/14/202503/14, 03/14/2024, 06/07/2023, Additional history exists DTaP,Tdap,and [...] this encounter Medical Devices Implanted Type Area Glove Turner And Former Automatic Device Identifier Shelf Expiration Date Model / Serial / Lot Sut Steel 6 [id number] - [id number] Implanted:Qty: 6 on 05/11/2010 [place] [facility] [place]: Chest DO NOT USE 02/24/2015 [id number] / / [id number] Valve Heart Aortic Mag Eas 21m - [id number] Implanted:Qty: 1 on 05/11/2010 at [place] [facility] [place]A: Heart [employer] TOVA 03/21/2014 [id number] / [id number] / Graft Marker Coronary - [id number] Implanted:Qty: 2 on 05/11/2010 at [place] [facility] [place]A: Heart VM CARDIO VASCULAR 04/27/2012 [id number] / / [id number] documented as of this encounter Visit Diagnoses Diagnosis Hydronephrosis of right kidney- Primary Hydronephrosis E. coli UTI Urinary tract infection, site not specified Bilateral nephrolithiasis documented in this encounter Advance Directives Documents on File Type Date Recorded Patient Coach Expl anation Advance Directives and Living Will 11/26/2006 LIVING WILL LIVING W ILL Power of Deli Worker 11/26/2006 POWER OF A TTORNEY DURABLE HEALTHCARE POWER OF JEWELRY SALES REPRESENTATIVE * Full Code (Latest Code Status on [...] Power of Attor boo? No Care Teams Golf Ball Winder Relationship Specialty Start Date End Date Fadi Scott DO [address] [place] [address] PCP - General Family Medicine 08/09/16 documented as of this encounter
--- OUTSIDE RECORDS SUMMARY | 2024-04-01 01:50 | External Medical Summary | Summary of Care ---
Author Name Unknown Organization [facility] Address [address] [place] [address] Phone [phone] Care Team Providers Care Vp Analysis Name Role Phone Fadi Scott Primary Care Provider [phone] Reason for Referral * Evaluate & Treat - Unlimited Visits (Within 10 days (routine)) - Authorized Specialty Diagnoses / Procedures Referred By Keisha byrd Referred To Contact Urology Diagnoses Hydronephrosis of right kidney E. coli UTI Bilateral nephrolithiasis Dk García MD [address] [place] [address] Referral ID Status Reason Start Date Expiration Date Visits Requested Visits Authorized [id number] Authorized Specialty Services Required 03/27/2024 999 999 [...] st Contact Info) Description 03/26/2024 Telephone Laboratory, [place] [address] [place] [address] Dk García MD [address] [facility] [place] [address] Test Results (CT ABD/PELVIS W IV AND [...] goal of less than 7.0% ([facility]) Use daily to test blood sugar. E11.9 1 Kit 07/08/2018 Active Rosuvastatin Calcium 5 MG Oral Tablet (Crestor)Indications: Type 2 diabetes mellitus with hemoglobin A1c goal of less than 7.0% ([facility]),Dyslipidemia, goal LDL below 70 TAKE 1 TABLET [...] goal of less than 7.0% ([facility]) Test blood sugar once daily Dx E11.9 [...] stage III (GFR 30-59 ml/min) ([facility]) Take 1 Tablet by mouth in the morning. 90 Tablet 2 10/30/2023 Active metFORMIN HCl ER 500 MG Oral Tablet Extended Release 24 Hour (Glucophage XR) (1) pill twice daily 180 Tablet 2 10/30/2023 Active FreeStyle Lite Test In Vitro Strip (Glucose Blood)Indications:Typ e 2 diabetes mellitus with hemoglobin A1c goal of less than 7.0% ([facility]) Use with blood glucose meter once daily. E11.9 300 Strip 1 11/26/2023 Active FreeStyle Lite w/Device Kit Use as directed. 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 6 mL 3 01/01/2024 Active Clopidogrel Bisulfate 75 MG Oral Tablet (Plavix)Indications:C oronary atherosclerosis of [place] coronary artery Take 1 Tablet by mouth [...] myocardial infarct 03/18/2009 Overview: Modified by Acute CT Protocol #5. 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 OF [place] CORONARY VESSEL 09/20/2006 VARIANTS OF MIGRAINE WITHOUT [...] Protocol #27. Central sleep apnea 03/26/2012 06/14/20 15 Overview: 02/2012 PSG - AHI 39.2 T&B Medical Hemorrhoids 02/26/2012 03/12/2018 CKD (chronic kidney disease), stage II 12/13/2011 05/27/2014 Pain of right leg 10/03/2011 05/29/2017 LUC Research Other*[id number] 12/15/2009 07/31/2014 Overview: Patterns of Non-Adherence to Anti-Platelet Regimens in Stented Patients PI: Dr. Arnold RC: Jenny Fitch RN EXAMINATION OF PARTICIPANT I N CLINICAL TRIAL- genomics 12/09/2009 12/10/2009 Overview: Renamed Per Clinical Trials Billing Project. Study Titile: Genomics Markers for Patients with Cardiovascular Disease Project # [id number] PI: Tara Browning MD Please call [phone] with study related questions GENOMICS CARDIO RESEARCH OTHER*[id number] 12/09/2009 10/03/2016 Overview: Renamed Per Clinical Trials Billing Project. Study Titile: Genomics Markers for Patients with Cardiovascular Disease Project # [id number] PI: Tara Browning MD Please call [phone] with study related questions HTN, goal below [...] infarction 04/04/2005 03/18/2009 Overview: Modified by Acute CT Protocol #5. TUBULOVILLOUS POLYP OF RECTUM 01/20/2005 [...] Seasonal Influenza, Quadriva lent, No Preserve, IM 05/25/2016,05/28/2009,06/26/2008,05/28,07/03/2006,06/09/2005,06/15/20 03,06/16/2002,06/09/1999,06/29/1998 Seasonal Influenza, Split, I IV3, With Preserve, [...] encounter Miscellaneous Notes * Telephone Encounter - Clotilde Power, MED ASSIST - 03/27/2024 11:37 AM EDT Patient aware and receptive to instructions. If he isn't contacted with an appointment for Dr. rAnold he will call back. * Addendum Note [...] occult ureteral lesion. -patient followed by Dr. Arnold, pl todd earlier appt with him. -will route to him for further advice reg imaging * Telephone Encounter - Go Benavidez OSA - 03/26/2024 6:54 PM EDT Hello- The radiologist discovered an unexpected or indeterminate finding on Poncho Guan ([id number]) and asks that you review the following [...] reviewed. Thank you, SAÚL Salinas Client Service [facility] documented in this encounter Plan of Treatment Upcoming Encounters Date Type Department Care Team (Late st Contact Info) Description 04/25/2024 8:45 AM EDT Office Visit Orthopaedics [facility] [address] [place] [address] Elmer Lawler MD [address] [place] [id number] 06/02/2024 3:45 PM EDT Office Visit Urology, [facility] [address] [place] [address] Bry Arnold MD [address] [place] [address] Scheduled Referrals Name Type Priority Associated Diagnoses [...] 03/0 08/2021, 05/28/2020 CKD PHOS USE SMARTSET 88915 06/07/202405/27, 11/15/2021, 09/23/2020, Additional history exists Diabetic Foot Exam 06/11/2024 06/11/2023, 0 10/26/2021, 12/07/2020, Additional history exists HbA1c 06/29/2024 12/28/2023, 05/27, 11/08/2022, Additional history exists GFR 09/21/2024 03/21/2024, 02/25, 03/14/2024, Additional history exists Diabetic Eye Exam 10/18/2024 10/18/2023, , 04/25/2021, Additional history exists Albumin/Creatinine Ratio 12/27/2024 024, 11/08/2022, 10/26/2021, Additional history exists Depression Screening 12/31/2024 01/01/2024 CKD HGB USE SMARTSET 96915 03/14/202503/14, 03/14/2024, 06/07/2023, Additional history exists DTaP,Tdap,and [...] this encounter Medical Devices Implanted Type Area Complaint Specialist Device Identifier Shelf Expiration Date Model / Serial / Lot Arin Carter 6 M654g - [id number] [place]ed:[place] 6 [place] [facility] [place] Chest DO NOT USE 02/24/2015 [id number] / / [id number] Valve Heart Aortic Mag Eas 21m - [id number] Implanted:Qty: 1 on 05/11/2010 [place] [facility] [place]: Heart [employer] TOVA 03/21/2014 [id number] / [id number] / Graft Marker Coronary - [id number] Implanted:Qty: 2 on 05/11/2010 [place] [facility] [place] Heart VM CARDIO VASCULAR 04/27/2012 [id number] / / [id number] documented as of this encounter Visit Diagnoses Diagnosis Hydronephrosis of right kidney- Primary Hydronephrosis E. coli UTI Urinary tract infection, site not specified Bilateral nephrolithiasis documented in this encounter Advance Directives Documents on File Type Date Recorded Patient Stencil Cutter Machine Expl anation Advance Directives and Living Will 11/26/2006 LIVING WILL LIVING W ILL Power of Newspaper Editor Managing 11/26/2006 POWER OF A TTORNEY DURABLE HEALTHCARE POWER OF TRICOT KNITTER * Full Code (Latest Code Status on [...] Power of Attor boo? No Care Teams Vp Analysis Relationship Specialty Start Date End Date Fadi Scott DO [address] [place] [address] PCP - General Family Medicine 08/09/16 documented as of this encounter
--- OUTSIDE RECORDS SUMMARY | 2024-04-01 01:50 | External Medical Summary | Summary of Care ---
Author Name Unknown Organization [facility] Address [address] [place] [address] Phone [phone] Care Team Providers Care Stamping Die Try Out Worker Name Role Phone Fadi Scott DO Primary Care Provider [phone] Reason for Visit * Reason Onset Date Comments Test Results 03/26/2024 CT ABD/PELVIS W IV AND W ORAL CONTRAST Encounter Details Date Type Department Care Team (Late st Contact Info) Description 03/26/2024 Telephone Laboratory, [place] [address] [place] [address] Monica García MD [address] [place] [address] Test Results (CT ABD/PELVIS W IV AND W ORA... Allergies Active Allergy Reactions Criticality Noted Date Comments Atorvastatin Calcium 05/11/2010 Marked elevation CK Niacin Flushing,Other (Please comment) 05/11/2010 "pins and needles" documented as of this encounter (statuses as of 03/26/2024) Medications Medication Sig Dispensed Refills Start Date [...] hemoglobin A1c goal of less than 7.0% ([facility]) Use daily to test blood sugar. E11.9 [...] hemoglobin A1c goal of less than 7.0% ([facility]) Test blood sugar once daily Dx E11.9 [...] disease, chronic, stage III (GFR 30-59 ml/min) ([facility]) Take 1 Tablet by mouth in the morning. 90 Tablet 2 10/30/2023 Active metFORMIN HCl ER 500 MG Oral Tablet Extended Release 24 Hour (Glucophage XR) (1) pill twice daily 180 Tablet 2 10/30/2023 Active FreeStyle Lite Test In Vitro Strip (Glucose Blood)Indications:Typ e 2 diabetes mellitus with hemoglobin A1c goal of less than 7.0% ([facility]) Use with blood glucose meter once daily. E11.9 300 Strip 1 11/26/2023 Active FreeStyle Lite w/Device Kit Use as directed. 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) Inject 4.5 mg under the skin once a week. 6 mL 3 01/01/2024 Active Clopidogrel Bisulfate 75 MG Oral Tablet (Plavix)Indications:C oronary atherosclerosis of [place] coronary artery Take 1 Tablet by mouth in the morning. 90 Tablet 1 03/24/2024 Active Hospital, Clinic, or Other Facility Administered Medication Ordered Dose Route Frequency Start Date End Date Status sodium chloride 0.9 % flush/inj 10 mL 10 mL IV PUSH ONCE 03/26/2024 03/27/2024 Active documented as of this encounter (statuses as of 03/26/2024) Active Problems Problem Noted Date Diagnosed Date [...] myocardial infarct 03/18/2009 Overview: Modified by [facility] [place] Protocol #5. 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 OF [place] CORONARY VESSEL 09/20/2006 VARIANTS OF MIGRAINE WITHOUT MENTION OF INTRACTABLE MIGRAINE 01/25/1994 Gout Benign neoplasm of colon Overview: hyperplastic/ repeat colonoscopy in 5 yrs documented as of this encounter (statuses as of 03/26/2024) Resolved Problems Problem Noted Date Diagnosed Date [...] of right leg 10/03/2011 05/29/2017 [employer] Other*[id number] 12/15/2009 07/31/2014 Overview: Patterns of Non-Adherence to Anti-Platelet Regimens in Stented Patients PI: Dr. Arnold RC: Jenny Fitch RN EXAMINATION OF PARTICIPANT I N CLINICAL TRIAL- genomics 12/09/2009 12/10/2009 Overview: Renamed Per Clinical Trials Billing Project. Study Titile: Genomics Markers for Patients with Cardiovascular Disease Project # [id number] PI: Tara Browning MD Please call [phone] with study related questions GENOMICS CARDIO RESEARCH OTHER*[id number] 12/09/2009 10/03/2016 Overview: Renamed Per Clinical Trials Billing Project. Study Titile: Genomics Markers for Patients with Cardiovascular Disease Project # [id number] PI: Tara Browning MD Please call [phone] with study related questions HTN, goal below [...] infarction 04/04/2005 03/18/2009 Overview: Modified by [facility] [place] Protocol #5. TUBULOVILLOUS POLYP OF RECTUM 01/20/2005 05/29/2017 Mixed dyslipidemia 11/07/2004 9 Overview: Per Lipid Taxonomy. Type 2 diabetes mellitus wit h hemoglobin A1c goal of less than 7.0% 08/08/2002 06/24/2009 Overview: Per Diabetes Taxonomy. ICD-10 update of inactive term HTN, goal below 140/90 09/22 Overview: Per HTN Taxonomy. documented as of this encounter (statuses as of 03/26/2024) Immunizations Name Administration Dates Next Due COVID-19 mRNA, LNP-s, No Pre serve, 2-Dose Series (Moderna) 10/20/2020,09/17/2020 COVID-19, mRNA, LNP-s, PF, B ooster, 100mcg/0.5mg (Moderna) 12/14/2021,06/20/2021 Covid-19, Mrna, Lnp-s, Pf, B ivalent, 50 Mcg, IM, 12 yrs and above (Moderna) 01/25/2023 H1N1 2009 Influenza, IM 08/31/2009 Pneumococcal Conjugate Vacc, 13 Valent (Prevnar) 12/25/2014 Pneumococcal Polysaccharide PPV23 (Pneumovax) 05/25/2016 Season Influenza, Quad, PF, Adjuvanted, 65+ Yrs, IM (FLUAD) 05/18/2020 Seasonal Influenza, PF, 6 M & above, IM , (FluLaval or Fluzone) 06/09/2019,06/17/2018,05/29/2017 Seasonal Influenza, Quadriva lent Hd (Fluzone Hd) 04/28/2022,05/03/2021 Seasonal Influenza, Quadriva lent, No Preserve, IM 05/25/2016,05/28/2009,06/26/2008,05/28,07/03/2006,06/09/2005,06/15/20,06/16/2002,06/09/1999,06/29/1998 Seasonal Influenza, Split, I IV3, With Preserve, Inj 04/28/2015,05/27/2014,05/30/2013,04/28,06/08/2011,06/10/2010,05/28/20 09,06/26/2008,06/24/2007,07/03/2006 TD, Preservative Free 11/07/1999,02/18/1987 TDAP (age 11 [...] encounter Miscellaneous Notes * Telephone Encounter - Go Benavidez OSA - 03/26/2024 6:54 PM EDT Hello- The radiologist discovered an unexpected or indeterminate finding on Poncho Guan ([id number]) and asks that you review the following [...] reviewed. Thank you, SAÚL Salinas Client Service [facility] documented in this encounter Plan of Treatment Upcoming Encounters Date Type Department Care Team (Late st Contact Info) Description 04/25/2024 8:45 AM EDT Office Visit Orthopaedics [facility] [address] [place] [address] Elmer Lawler MD [address] [id number] 06/02/2024 3:45 PM EDT Office Visit Urology, [facility] [address] [place] [address] Bry Arnold MD [address] [place] [address] Health Maintenance Due Date Last Done Comments COVID-19 Vaccine ( season) 2023 01/25/2023, 12/14/2021, 06/20/2021, Additional history exists Influenza Vaccine (FLU shot) (#1) 2024 04/28/2022, 05/03/2021, 05/18/2020, Additional history exists Colonoscopy 05/09/2024 05/09/2019, 11/25, 01/20/2011, Additional history exists B-12 06/07/2024 06/07/2023, 03/0 08/2021, 05/28/2020 CKD PHOS USE SMARTSET 75625 06/07/202405/27, 11/15/2021, 09/23/2020, Additional history exists Diabetic Foot Exam 06/11/2024 06/11/2023, 0 10/26/2021, 12/07/2020, Additional history exists HbA1c 06/29/2024 12/28/2023, 05/27, 11/08/2022, Additional history exists GFR 09/21/2024 03/21/2024, 02/25, 03/14/2024, Additional history exists Diabetic Eye Exam 10/18/2024 10/18/2023, , 04/25/2021, Additional history exists Albumin/Creatinine Ratio 12/27/2024 024, 11/08/2022, 10/26/2021, Additional history exists Depression Screening 12/31/2024 01/01/2024 CKD HGB USE SMARTSET [id number] 03/14/202503/14, 03/14/2024, 06/07/2023, Additional history exists DTaP,Tdap,and Td Vaccines (4 - Td or Tdap) 03/26/2030 03/26/2020, 01/21/2010, 01/21/2010, Additional history exists Pneumococcal Vaccine: 65+ Years Completed 05/25/2016, 12/25/2014, 06/09/2005 RETIRED - COLONOSCOPY-EVERY 5 YRS AGES 18-100 Discontinued 05/09/2019, 12/10/2013, 01/20/2011, Additional history exists Zoster Vaccines Completed 06/30/2020, 02/26, 08/29/2012 *BASELINE EKG FOR HTN Completed 12/07/2020 , 01/02/2017, 05/11/2010, Additional history exists Hepatitis C Screening Completed 03/21/2024, 012 HPV (Gardasil) Vaccine Aged Out No lo nger eligible based on patient's age to complete this topic Hepatitis B Vaccine Aged Out No longe r eligible based on patient's age to complete this topic MENINGOCOCCAL (MENACTRA/MENVEO) Aged Out No longer eligible based on patient's age to complete this topic documented as of this encounter Medical Devices Implanted Type Area Maintenance Carpenter Device Identifier Shelf Expiration Date Model / Serial / Lot Sut Steel 6 M654g - [id number] Implanted:Qty: 6 on 05/11/2010 at OR [facility] [place] N/A: Chest DO NOT USE 02/24/2015 [id number] / / [id number] Valve Heart Aortic Mag Eas 21m - [id number] Implanted:Qty: 1 on 05/11/2010 at OR [facility] [place] N/A: Heart [employer]ok[employer] TOVA 03/21/2014 [id number] / [id number] / Graft Marker Coronary - [id number] Implanted:Qty: 2 on 05/11/2010 at OR [facility] [place] N/A: Heart VM CARDIO VASCULAR 04/27/2012 [id number] / / [id number] documented as of this encounter Advance Directives Documents on File Type Date Recorded Patient Nursery Worker Expl anation Advance Directives and Living Will 11/26/2006 LIVING WILL LIVING W ILL Power of Waterworks Pump Station Operator 11/26/2006 POWER OF A TTORNEY DURABLE HEALTHCARE POWER OF SENIOR BOILER OPERATOR * Full Code (Latest Code Status on [...] Power of Attor boo? No Care Teams Stamping Die Try Out Worker Relationship Specialty Start Date End Date Fadi cSott DO [address] [place] [address] PCP - General Family Medicine 08/09/16 documented as of this encounter
--- OUTSIDE RECORDS SUMMARY | 2024-04-01 01:50 | External Medical Summary | Summary of Care ---
Author Name Unknown Organization [facility] Address [address] [place] [address] Phone [phone] Care Team Providers Care Folder Operator Name Role Phone Fadi Scott DO Primary Care Provider [phone] Reason for Visit * Reason Comments eRx-Medication Refill Encounter Details Date Type Department Care Team (Late st Contact Info) Description 03/24/2024 Refill Family Practice [facility] [place] [address] [facility] [place] [address] Fadi Scott DO [address] [facility] [place] [address] Coronary atherosclerosis of [place] coronary artery Allergies Active Allergy Reactions Criticality Noted Date Comments Atorvastatin Calcium 05/11/2010 Marked elevation CK Niacin Flushing,Other (Please comment) 05/11/2010 "pins and needles" documented as of this encounter (statuses as of 03/25/2024) Medications Medication Sig Dispensed Refills Start Date End Date Status ASPIRIN 81 MG PO CHEWIndications:S/P angioplasty with stent 1 Tab Oral Daily 30 12/15/2009 Active COQ-10 200 MG PO CAPS once daily Act rosalina Docusate Sodium 50 MG Oral Capsule Take by mouth 2 times a day. Active Multiple Vitamins-Minerals (MULTIVITAL) chewable tablet Take 1 Tablet by mouth in the morning. Active Blood Glucose Monitoring Suppl (BLOOD GLUCOSE MONITOR SYSTEM) w/Device KITIndications:Type 2 diabetes mellitus with hemoglobin A1c goal of less than 7.0% ([facility]) Use daily to test blood sugar. E11.9 1 Kit 07/08/2018 Active Rosuvastatin Calcium 5 MG Oral Tablet (Crestor)Indications: Type 2 diabetes mellitus with hemoglobin A1c goal of less than 7.0% ([facility]),Dyslipidemia, goal LDL below 70 TAKE 1 TABLET [...] goal of less than 7.0% ([facility]) Test blood sugar once daily Dx E11.9 [...] stage III (GFR 30-59 ml/min) ([facility]) Take 1 Tablet by mouth in the morning. 90 Tablet 2 10/30/2023 Active metFORMIN HCl ER 500 MG Oral Tablet Extended Release 24 Hour (Glucophage XR) (1) pill twice daily 180 Tablet 2 10/30/2023 Active FreeStyle Lite Test In Vitro Strip (Glucose Blood)Indications:Typ e 2 diabetes mellitus with hemoglobin A1c goal of less than 7.0% ([facility]) Use with blood glucose meter once daily. E11.9 300 Strip 1 11/26/2023 Active FreeStyle Lite w/Device Kit Use as directed. 1 Kit 12/19/2023 Active Trulicity 4.5 MG/0.5ML Subcutaneous Solution Pen-injector (Dulaglutide)Indicati ons:Type 2 diabetes mellitus with stage 3a chronic kidney disease and hypertension ([facility]) Inject 4.5 mg under the skin once a week. 6 mL 3 01/01/2024 Active Clopidogrel Bisulfate 75 MG Oral Tablet (Plavix)Indications:C oronary atherosclerosis of [place] coronary artery Take 1 Tablet by mouth in the morning. 90 Tablet 1 03/24/2024 Active documented as of this encounter (statuses as of 03/25/2024) Active Problems Problem Noted Date Diagnosed Date [...] myocardial infarct 03/18/2009 Overview: Modified by Acute [place] Protocol #5. 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 OF [place] CORONARY VESSEL 09/20/2006 VARIANTS OF MIGRAINE WITHOUT MENTION OF INTRACTABLE MIGRAINE 01/25/1994 Gout Benign neoplasm of colon Overview: hyperplastic/ repeat colonoscopy in 5 yrs documented as of this encounter (statuses as of 03/25/2024) Resolved Problems Problem Noted Date Diagnosed Date [...] of right leg 10/03/2011 05/29/2017 [employer] Other*[id number] 12/15/2009 07/31/2014 Overview: Patterns of Non-Adherence to Anti-Platelet Regimens in Stented Patients PI: Dr. Arnold RC: Jenny Fitch RN EXAMINATION OF PARTICIPANT I N CLINICAL TRIAL- genomics 12/09/2009 12/10/2009 Overview: Renamed Per Clinical Trials Billing Project. Study Titile: Genomics Markers for Patients with Cardiovascular Disease Project # [id number] PI: Tara Browning MD Please call [phone] with study related questions GENOMICS CARDIO RESEARCH OTHER*[id number] 12/09/2009 10/03/2016 Overview: Renamed Per Clinical Trials Billing Project. Study Titile: Genomics Markers for Patients with Cardiovascular Disease Project # [id number] PI: Tara Browning MD Please call [phone] with study related questions HTN, goal below [...] infarction 04/04/2005 03/18/2009 Overview: Modified by [facility] [place] Protocol #5. TUBULOVILLOUS POLYP OF RECTUM 01/20/2005 05/29/2017 Mixed dyslipidemia 11/07/2004 9 Overview: Per Lipid Taxonomy. Type 2 diabetes mellitus wit h hemoglobin A1c goal of less than 7.0% 08/08/2002 06/24/2009 Overview: Per Diabetes Taxonomy. ICD-10 update of inactive term HTN, goal below 140/90 09/22 Overview: Per HTN Taxonomy. documented as of this encounter (statuses as of 03/25/2024) Immunizations Name Administration Dates Next Due COVID-19 [...] encounter Miscellaneous Notes * Telephone Encounter - Kiersten Gutierrez RPh - 03/25/2024 6:27 AM EDT Refused Prescriptions: Disp Refills Clopidogrel Bisulfate 75 MG Oral Tablet (p*90 Tab*0 Sig: TAKE 1TABLET BY MOUTH IN THE MORNINGRefused By: KIERSTEN GUTIERREZ for Refusal: Duplicate Request- documented in this encounter Plan of Treatment Upcoming Encounters Date Type Department Care Team (Late st Contact Info) Description 03/26/2024 2:15 PM EDT Imaging Radiology [facility] [address] [place] [address] 04/25/2024 8:45 AM EDT Office Visit Orthopaedics [facility] [address] [place] [address] Elmer Lawler MD [address] [place] [address] 06/02/2024 3:45 PM EDT Office Visit Urology, [facility] [address] [address] Bry Arnold MD [address] [place] [address] Health Maintenance Due Date Last Done Comments COVID-19 Vaccine ( season) 2023 01/25/2023, 12/14/2021, 06/20/2021, Additional history exists Influenza Vaccine (FLU shot) (#1) 2024 04/28/2022, 05/03/2021, 05/18/2020, Additional history exists Colonoscopy 05/09/2024 05/09/2019, 11/25, 01/20/2011, Additional history exists B-12 06/07/2024 06/07/2023, 03/0 08/2021, 05/28/2020 CKD PHOS USE SMARTSET 53377 06/07/202405/27, 11/15/2021, 09/23/2020, Additional history exists Diabetic Foot Exam 06/11/2024 06/11/2023, 0 10/26/2021, 12/07/2020, Additional history exists HbA1c 06/29/2024 12/28/2023, 05/27, 11/08/2022, Additional history exists GFR 09/21/2024 03/21/2024, 02/25, 03/14/2024, Additional history exists Diabetic Eye Exam 10/18/2024 10/18/2023, , 04/25/2021, Additional history exists Albumin/Creatinine Ratio 12/27/2024 024, 11/08/2022, 10/26/2021, Additional history exists Depression Screening 12/31/2024 01/01/2024 CKD HGB USE SMARTSET 95731 03/14/202503/14, 03/14/2024, 06/07/2023, Additional history exists DTaP,Tdap,and [...] this encounter Medical Devices Implanted Type Area Supervisor Yard Device Identifier Shelf Expiration Date Model / Serial / Lot Sut Steel 6 M654g - [id number] Implanted:Qty: 6 on 05/11/2010 at OR [facility] [place] N/A: Chest DO NOT USE 02/24/2015 M654G / / [id number] Valve Heart Aortic Mag Eas 21m - [id number] Implanted:Qty: 1 on 05/11/2010 at OR [facility] N/A: Heart [employer]oomster TOVA 03/21/2014 [id number] / [id number] / Graft Marker Coronary - [id number] Implanted:Qty: 2 on 05/11/2010 at OR [facility] N/A: Heart VM CARDIO VASCULAR 04/27/2012 [id number] / / [id number] documented as of this encounter Visit Diagnoses Diagnosis Coronary atherosclerosis of [place] coronary artery documented in this encounter Advance Directives Documents on File Type Date Recorded Patient Record Clerk Salesperson Expl anation Advance Directives and Living Will 11/26/2006 LIVING WILL LIVING W ILL Power of Tool Maker Apprentice 11/26/2006 POWER OF A TTORNEY DURABLE HEALTHCARE POWER OF BURNER OPERATOR * Full Code (Latest Code Status [...] Power of Attor boo? No Care Teams Folder Operator Relationship Specialty Start Date End Date Fadi Scott DO [address] [place] [address] PCP - General Family Medicine 08/09/16 documented as of this encounter
--- OUTSIDE RECORDS SUMMARY | 2024-04-01 01:50 | External Medical Summary | Summary of Care ---
Author Name Unknown Organization [facility] Address [address] [place] [address] Phone [phone] Care Team Providers Care Shorthand Teacher Name Role Phone Fadi Scott DO Primary Care Provider [phone] Reason for Referral * Precert (Within 10 days (routine)) - Pending Review Specialty Diagnoses / Procedures Referred By Keisha byrd Referred To Contact Radiology Diagnoses Hydronephrosis of right kidney Procedures CT UROGRAPHY W WO CONTRAST Bry Marrufo MD [address] [place] [address] Referral ID Status Reason Start Date Expiration Date V isits Requested Visits Authorized [id number] Pending Review 03/27/2024 999 999 * Evaluate & Treat - Unlimited Visits (Within 10 days (routine)) - Authorized Specialty Diagnoses / Procedures Referred By Keisha byrd Referred To Contact Urology Diagnoses Hydronephrosis of right kidney E. coli UTI Bilateral nephrolithiasis Dk García MD [address] [place] [address] Referral ID Status Reason Start Date Expiration Date Visits Requested Visits Authorized [id number] Authorized Specialty Services Required 03/27/2024 999 999 Question Answer Referral Priority Within 10 days (routine) Where should this appointment be scheduled? [facility] What is the patient being referred for? Other Conditions Reason for Visit * Reason Onset Date Comments Test Results 03/26/2024 [facility] 03/27 Encounter Details Date Type Department Care Team (Late st Contact Info) Description 03/26/2024 Telephone Laboratory, [address] [address] Dk Garcaí MD [address] [place] [address] Test Results ([facility] 03/27) Allergies Active Allergy Reactions Criticality Noted Date [...] disease, chronic, stage III (GFR 30-59 ml/min) ([facility]) Take 1 Tablet by mouth in the morning. 90 Tablet 2 10/30/2023 Active metFORMIN HCl ER 500 MG Oral Tablet Extended Release 24 Hour (Glucophage XR) (1) pill twice daily 180 Tablet 2 10/30/2023 Active FreeStyle Lite Test In Vitro Strip (Glucose Blood)Indications:Typ e 2 diabetes mellitus with hemoglobin A1c goal of less than 7.0% ([facility]) Use with blood glucose meter once daily. E11.9 300 Strip 1 11/26/2023 Active FreeStyle Lite w/Device Kit Use as directed. 1 Kit 12/19/2023 Active Trulicity 4.5 MG/0.5ML Subcutaneous Solution Pen-injector (Dulaglutide)Indicati ons:Type 2 diabetes mellitus with stage 3a chronic kidney disease and hypertension ([facility]) Inject 4.5 mg under the skin once a week. 6 mL 3 01/01/2024 Active Clopidogrel Bisulfate 75 MG Oral Tablet (Plavix)Indications:C oronary atherosclerosis of [place] coronary artery Take 1 Tablet by mouth [...] myocardial infarct 03/18/2009 Overview: Modified by Acute [place] Protocol #5. 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 OF [place] CORONARY VESSEL 09/20/2006 VARIANTS OF MIGRAINE WITHOUT [...] of right leg 10/03/2011 05/29/2017 [employer] Other*[id number] 12/15/2009 07/31/2014 Overview: Patterns of Non-Adherence to Anti-Platelet Regimens in Stented Patients PI: Dr. Arnold RC: Jenny Fitch RN EXAMINATION OF PARTICIPANT I N CLINICAL TRIAL- genomics 12/09/2009 12/10/2009 Overview: Renamed Per Clinical Trials Billing Project. Study Titile: Genomics Markers for Patients with Cardiovascular Disease Project # [id number] PI: Tara Browning MD Please call [phone] with study related questions GENOMICS CARDIO RESEARCH OTHER*[id number] 12/09/2009 10/03/2016 Overview: Renamed Per Clinical Trials Billing Project. Study Titile: Genomics Markers for Patients with Cardiovascular Disease Project # [id number] PI: Tara Browning MD Please call [phone] with study related questions HTN, goal below [...] infarction 04/04/2005 03/18/2009 Overview: Modified by Acute [place] Protocol #5. TUBULOVILLOUS POLYP OF RECTUM 01/20/2005 [...] scheduled. Thanks, * Telephone Encounter - Clotilde Power MED [...] unexpected or indeterminate finding on Poncho Guan ([id number]) and asks that you review the following [...] reviewed. Thank you, SAÚL Salinas Client Service [facility] documented in this encounter Plan of Treatment Upcoming Encounters Date Type Department Care Team (Late st Contact Info) Description 04/25/2024 8:45 AM EDT Office Visit Orthopaedics [facility] [address] [place] [address] Elmer Lawler MD [address] [place] [address] 06/02/2024 3:45 PM EDT Office Visit Urology, [facility] [address] [place] [address] Bry Marrufo MD [address] [place] [id number] Scheduled Orders Name Type Priority Associated Diagnoses [...] 06/07/2023, 03/08/2021, 05/28/2020 CKD PHOS USE SMARTSET 43949 06/07/202405/27, 11/15/2021, 09/23/2020, Additional history exists Diabetic Foot Exam 06/11/2024 06/11/2023, 0 10/26/2021, 12/07/2020, Additional history exists HbA1c 06/29/2024 12/28/2023, 05/27, 11/08/2022, Additional history exists GFR 09/21/2024 03/21/2024, 02/25, 03/14/2024, Additional history exists Diabetic Eye Exam 10/18/2024 10/18/2023, , 04/25/2021, Additional history exists Albumin/Creatinine Ratio 12/27/2024 024, 11/08/2022, 10/26/2021, Additional history exists Depression Screening 12/31/2024 01/01/2024 CKD HGB USE SMARTSET 64389 03/14/202503/14, 03/14/2024, 06/07/2023, Additional history exists DTaP,Tdap,and [...] this encounter Medical Devices Implanted Type Area Critical Care Paramedic Device Identifier Shelf Expiration Date Model / Serial / Lot Sut Steel 6 M654g - [id number] Implanted:Qty: 6 on 05/11/2010 at [place] [facility] [place]A: Chest DO NOT USE 02/24/2015 [id number] / / [id number] Valve Heart Aortic Mag Eas 21m - [id number] Implanted:Qty: 1 on 05/11/2010 at OR [facility] [place] N/A: Heart [employer] TOVA 03/21/2014 [id number] / [id number] / Graft Marker Coronary - [id number] Implanted:Qty: 2 on 05/11/2010 at [place] [facility] [place] N/A: Heart VM CARDIO VASCULAR 04/27/2012 [id number] / / [id number] documented as of this encounter Visit Diagnoses Diagnosis Hydronephrosis of right kidney- Primary Hydronephrosis E. coli UTI Urinary tract infection, site not specified Bilateral nephrolithiasis documented in this encounter Advance Directives Documents on File Type Date Recorded Patient Sales Broker Expl anation Advance Directives and Living Will 11/26/2006 LIVING WILL LIVING W ILL Power of Optimization Engineer 11/26/2006 POWER OF A TTORNEY DURABLE HEALTHCARE POWER OF BANK CLERK * Full Code (Latest Code Status on [...] Power of Attor boo? No Care Teams Shorthand Teacher Relationship Specialty Start Date End Date Fadi Scott DO [address] [place] [address] PCP - General Family Medicine 08/09/16 documented as of this encounter
--- OUTSIDE RECORDS SUMMARY | 2024-04-01 01:50 | External Medical Summary | Summary of Care ---
Author Name Unknown Organization [facility] Address [address] [place] [address] Phone [phone] Care Team Providers Care Cell Tuber Hand Name Role Phone Fadi Scott Primary Care Provider [phone] Reason for Referral * Evaluate & Treat - Unlimited Visits (Within 10 days (routine)) - Authorized Specialty Diagnoses / Procedures Referred By Keisha byrd Referred To Contact Urology Diagnoses Hydronephrosis of right kidney E. coli UTI Bilateral nephrolithiasis Dk Garíca MD [address] [place] [address] Referral ID Status Reason Start Date Expiration Date Visits Requested Visits Authorized [id number] Authorized Specialty Services Required 03/27/2024 999 999 [...] st Contact Info) Description 03/26/2024 Telephone Laboratory, [facility] [address] [place] [address] Dk García MD [address] [place] [address] Test Results (CT ABD/PELVIS W IV AND [...] goal of less than 7.0% ([facility]) Use daily to test blood sugar. E11.9 1 Kit 07/08/2018 Active Rosuvastatin Calcium 5 MG Oral Tablet (Crestor)Indications: Type 2 diabetes mellitus with hemoglobin A1c goal of less than 7.0% ([facility]),Dyslipidemia, goal LDL below 70 TAKE 1 [...] goal of less than 7.0% ([facility]) Test blood sugar once daily Dx [...] stage III (GFR 30-59 ml/min) ([facility]) Take 1 Tablet by mouth in [...] MG Oral Tablet (Plavix)Indications:C oronary atherosclerosis of [place] coronary artery Take 1 Tablet by mouth [...] ASYMPTOMATIC, W/O INFARCTION 09/20/2006 CORONARY ATHEROSCLER. OF [place] CORONARY VESSEL 09/20/2006 VARIANTS OF MIGRAINE WITHOUT [...] of right leg 10/03/2011 05/29/2017 [employer] Other*[id number] 12/15/2009 07/31/2014 Overview: Patterns of Non-Adherence to Anti-Platelet Regimens in Stented Patients PI: Dr. Arnold RC: Jenny Fitch RN EXAMINATION OF PARTICIPANT I N CLINICAL TRIAL- genomics 12/09/2009 12/10/2009 Overview: Renamed Per Clinical Trials Billing Project. Study Titile: Genomics Markers for Patients with Cardiovascular Disease Project # [id number] PI: Tara Browning MD Please call [phone] with study related questions GENOMICS CARDIO RESEARCH OTHER*[id number] 12/09/2009 10/03/2016 Overview: Renamed Per Clinical Trials Billing Project. Study Titile: Genomics Markers for Patients with Cardiovascular Disease Project # [id number] PI: Tara Browning MD Please call [phone] with study related questions HTN, goal below [...] encounter Miscellaneous Notes * Addendum Note - Dk García MD [...] occult ureteral lesion. -patient followed by Dr. Anrold, pl todd earlier appt with him. -will route to him for further advice reg imaging * Telephone Encounter - Go Benavidez OSA - 03/26/2024 6:54 PM EDT Hello- The radiologist discovered an unexpected or indeterminate finding on Poncho Guan ([id number]) and asks that you review the following [...] reviewed. Thank you, SAÚL Salinas Client Service [facility] documented in this encounter Plan of Treatment Upcoming Encounters Date Type Department Care Team (Late st Contact Info) Description 04/25/2024 8:45 AM EDT Office Visit Orthopaedics [facility] [address] [place] [address] Elmer Lawler MD [address] [place] [id number] 06/02/2024 3:45 PM EDT Office Visit Urology, [facility] [address] [place] [address] Bry Arnold MD [address] [place] [address] Scheduled Referrals Name Type Priority Associated Diagnoses [...] 03/0 08/2021, 05/28/2020 CKD PHOS USE SMARTSET 20389 06/07/202405/27, 11/15/2021, 09/23/2020, Additional history exists Diabetic Foot Exam 06/11/2024 06/11/2023, 0 10/26/2021, 12/07/2020, Additional history exists HbA1c 06/29/2024 12/28/2023, 05/27, 11/08/2022, Additional history exists GFR 09/21/2024 03/21/2024, 02/25, 03/14/2024, Additional history exists Diabetic Eye Exam 10/18/2024 10/18/2023, , 04/25/2021, Additional history exists Albumin/Creatinine Ratio 12/27/2024 024, 11/08/2022, 10/26/2021, Additional history exists Depression Screening 12/31/2024 01/01/2024 CKD HGB USE SMARTSET 08108 03/14/202503/14, 03/14/2024, 06/07/2023, Additional history exists DTaP,Tdap,and [...] this encounter Medical Devices Implanted Type Area Reproductive Surgeon Device Identifier Shelf Expiration Date Model / Serial / Lot Sut Steel 6 M654g - [id number] Implanted:Qty: 6 on 05/11/2010 at [place] [facility] [place] N/A: Chest DO NOT USE 02/24/2015 M654G / / [id number] Valve Heart Aortic Mag Eas 21m - [id number] Implanted:Qty: 1 on 05/11/2010 at OR [facility] [place] N/A: Heart [employer] TOVA 03/21/2014 [id number] / [id number] / Graft Marker Coronary - [id number] Implanted:Qty: 2 on 05/11/2010 at [place] [facility] [place] N/A: Heart VM CARDIO VASCULAR 04/27/2012 [id number] / / [id number] documented as of this encounter Visit Diagnoses Diagnosis Hydronephrosis of right kidney- Primary Hydronephrosis E. coli UTI Urinary tract infection, site not specified Bilateral nephrolithiasis documented in this encounter Advance Directives Documents on File Type Date Recorded Patient Teacher Hearing Impaired Expl anation Advance Directives and Living Will 11/26/2006 LIVING WILL LIVING W ILL Power of Steward/Stewardess Deck 11/26/2006 POWER OF A TTORNEY DURABLE HEALTHCARE POWER OF SAP PAYROLL CONSULTANT * Full Code (Latest Code Status on [...] Power of Attor boo? No Care Teams Cell Tuber Hand Relationship Specialty Start Date End Date Fadi Scott DO [address] [place] [address] PCP - General Family Medicine 08/09/16 documented as of this encounter
--- OUTSIDE RECORDS SUMMARY | 2024-04-01 01:50 | External Medical Summary | Summary of Care ---
Author Name Unknown Organization [facility] Address [address] [place] [address] Phone [phone] Care Team Providers Care River Pilot Name Role Phone JasmeetFadi nesbitt Primary Care Provider [phone] Encounter Details Date Type Department Care Team (Late st Contact Info) Description 03/27/2024 Orders Only PATIENT PORTAL DO NOT DELETE THIS DEPT USED BY [place] [id number] Allergies Active Allergy Reactions Criticality Noted Date [...] hemoglobin A1c goal of less than 7.0% ([facility]) Use daily to test blood sugar. E11.9 1 Kit 07/08/2018 Active Rosuvastatin Calcium 5 MG Oral Tablet (Crestor)Indications: Type 2 diabetes mellitus with hemoglobin A1c goal of less than 7.0% ([facility]),Dyslipidemia, goal LDL below 70 TAKE 1 TABLET [...] hemoglobin A1c goal of less than 7.0% ([facility]) Test blood sugar once daily [...] disease, chronic, stage III (GFR 30-59 ml/min) ([facility]) Take 1 Tablet by mouth in the morning. 90 Tablet 2 10/30/2023 Active metFORMIN HCl ER 500 MG Oral Tablet Extended Release 24 Hour (Glucophage XR) (1) pill twice daily 180 Tablet 2 10/30/2023 Active FreeStyle Lite Test In Vitro Strip (Glucose Blood)Indications:Typ e 2 diabetes mellitus with hemoglobin A1c goal of less than 7.0% ([facility]) Use with blood glucose meter once daily. E11.9 300 Strip 1 11/26/2023 Active FreeStyle Lite w/Device Kit Use as directed. 1 Kit 12/19/2023 Active Trulicity 4.5 MG/0.5ML Subcutaneous Solution Pen-injector (Dulaglutide)Indicati ons:Type 2 diabetes mellitus with stage 3a chronic kidney disease and hypertension ([facility]) Inject 4.5 mg under the skin once a week. 6 mL 3 01/01/2024 Active Clopidogrel Bisulfate 75 MG Oral Tablet (Plavix)Indications:C oronary atherosclerosis of [place] coronary artery Take 1 Tablet by mouth [...] myocardial infarct 03/18/2009 Overview: Modified by Acute [place] Protocol #5. 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 OF [place] CORONARY VESSEL 09/20/2006 VARIANTS OF MIGRAINE WITHOUT [...] of right leg 10/03/2011 05/29/2017 [employer] Other*[id number] 12/15/2009 07/31/2014 Overview: Patterns of Non-Adherence to Anti-Platelet Regimens in Stented Patients PI: Dr. Arnold RC: Jenny Fitch RN EXAMINATION OF PARTICIPANT I N CLINICAL TRIAL- genomics 12/09/2009 12/10/2009 Overview: Renamed Per Clinical Trials Billing Project. Study Titile: Genomics Markers for Patients with Cardiovascular Disease Project # [id number] PI: Tara Browning MD Please call [phone] with study related questions GENOMICS CARDIO RESEARCH OTHER*[id number] 12/09/2009 10/03/2016 Overview: Renamed Per Clinical Trials Billing Project. Study Titile: Genomics Markers for Patients with Cardiovascular Disease Project # [id number] PI: Tara Browning MD Please call [phone] with study related questions HTN, goal below [...] infarction 04/04/2005 03/18/2009 Overview: Modified by Acute [place] Protocol #5. TUBULOVILLOUS POLYP OF RECTUM 01/20/2005 [...] Influenza, Split, I IV3, With Preserve, Inj 04/28/2015,05/27/2014,05/30/2013,04/28,06/08/2011,06/10/2010,05/28/20,06/26/2008,06/24/2007,07/03/2006 TD, Preservative Free 11/07/1999,02/18/1987 TDAP (age 11 [...] on file documented as of this encounter Plan of Treatment Upcoming Encounters Date Type Department Care Team (Late st Contact Info) Description 04/25/2024 8:45 AM EDT Office Visit Orthopaedics [facility] [address] [place] [address] Elmer Lawler MD [address] [place] [address] 06/02/2024 3:45 PM EDT Office Visit Urology, [facility] [address] [place] [address] Bry Arnold MD [address] [place] [address] Health Maintenance Due Date Last Done Comments COVID-19 Vaccine (2022- season) 2023 01/25/2023, 12/14/2021, 06/20/2021, Additional history exists Influenza Vaccine (FLU shot) (#1) 2024 04/28/2022, 05/03/2021, 05/18/2020, Additional history exists Colonoscopy 05/09/2024 05/09/2019, 11/25, 01/20/2011, Additional history exists B-12 06/07/2024 06/07/2023, 03/08/2021, 05/28/2020 CKD PHOS USE SMARTSET 56453 06/07/202405/27, 11/15/2021, 09/23/2020, Additional history exists Diabetic Foot Exam 06/11/2024 06/11/2023, 0 10/26/2021, 12/07/2020, Additional history exists HbA1c 06/29/2024 12/28/2023, 05/27, 11/08/2022, Additional history exists GFR 09/21/2024 03/21/2024, 02/25, 03/14/2024, Additional history exists Diabetic Eye Exam 10/18/2024 10/18/2023, , 04/25/2021, Additional history exists Albumin/Creatinine Ratio 12/27/2024 024, 11/08/2022, 10/26/2021, Additional history exists Depression Screening 12/31/2024 01/01/2024 CKD HGB USE SMARTSET 20248 03/14/202503/14, 03/14/2024, 06/07/2023, Additional history exists DTaP,Tdap,and [...] this encounter Medical Devices Implanted Type Area Collection Technician Device Identifier Shelf Expiration Date Model / Serial / Lot Arin Carter 6 M654g - [id number] Implanted:Qty: 6 on 05/11/2010 at [place] [facility] [place] N/A: Chest DO NOT USE 02/24/2015 M654G / / [id number] Valve Heart Aortic Mag Eas 21m - [id number] Implanted:Qty: 1 on 05/11/2010 at [place] [facility] [place] N/A: Heart [employer] TOVA 03/21/2014 [id number] / [id number] / Graft Marker Coronary - [id number] Implanted:Qty: 2 on 05/11/2010 at [place] [facility] [place] N/A: Heart VM CARDIO VASCULAR 04/27/2012 [id number] / / [id number] documented as of this encounter Advance Directives Documents on File Type Date Recorded Patient Online Editor Expl anation Advance Directives and Living Will 11/26/2006 LIVING WILL LIVING W ILL Power of Poke In 11/26/2006 POWER OF A TTORNEY DURABLE HEALTHCARE POWER OF CORE DRILL OPERATOR HELPER * Full Code (Latest Code Status on [...] Power of Attor boo? No Care Teams River Pilot Relationship Specialty Start Date End Date Fadi Scott [place] [address] PCP - General Family Medicine 08/09/16 documented as of this encounter
--- OUTSIDE RECORDS SUMMARY | 2024-04-01 01:51 | External Medical Summary | Summary of Care ---
Author Name Unknown Organization [facility] Address [address] [place] [address] Phone [phone] Care Team Providers Care Academic Department Chair Name Role Phone JasmeetFadi nesbitt Primary Care Provider [phone] Reason for Visit * Reason Comments Outpatient Testing Encounter Details Date Type Department Care Team (Late st Contact Info) Description 03/18/2024 7:00 AM EDT Laboratory Laboratory [facility] [place] [address] [place] [address] [place], [address] [place] [address] Fever, unspecified fever cause; Headache, unspecified headache type; S/P aortic valve replacement; Abnormal AST and ALT Allergies Active Allergy Reactions Criticality Noted Date Comments Atorvastatin Calcium 05/11/2010 Marked elevation CK Niacin Flushing,Other (Please comment) 05/11/2010 "pins and needles" documented as of this encounter (statuses as of 03/18/2024) Medications Medication Sig Dispensed Refills Start Date [...] hemoglobin A1c goal of less than 7.0% ([facility]) Use daily to test blood sugar. E11.9 1 Kit 07/08/2018 Active Rosuvastatin Calcium 5 MG Oral Tablet (Crestor)Indications: Type 2 diabetes mellitus with hemoglobin A1c goal of less than 7.0% ([facility]),Dyslipidemia, goal LDL below 70 TAKE 1 TABLET 4 TIMES A WEEK ON MONDAYS, WEDNESDAYS, FRIDAYS AND SATURDAYS 48 Tab 3 03/09/2021 Active Nitroglycerin 0.4 MG Sublingual Tablet Sublingual (Nitrostat) 12/20/2021 Active diphenhydrAMINE HCl 25 MG Oral Capsule (Benadryl) Take 1 Capsule by mouth at bedtime as needed. Active Clopidogrel Bisulfate 75 MG Oral Tablet (Plavix)Indications:C oronary atherosclerosis of [place] coronary artery Take 1 Tablet by mouth in the morning. 90 Tablet 3 03/14/2023 Active FreeStyle LancetsIndications:Ty pe 2 diabetes mellitus with hemoglobin A1c goal of less than 7.0% ([facility]) Test blood sugar once daily [...] disease, chronic, stage III (GFR 30-59 ml/min) ([facility]) Take 1 Tablet by mouth in the morning. 90 Tablet 2 10/30/2023 Active metFORMIN HCl ER 500 MG Oral Tablet Extended Release 24 Hour (Glucophage XR) (1) pill twice daily 180 Tablet 2 10/30/2023 Active FreeStyle Lite Test In Vitro Strip (Glucose Blood)Indications:Typ e 2 diabetes mellitus with hemoglobin A1c goal of less than 7.0% ([facility]) Use with blood glucose meter once daily. E11.9 300 Strip 1 11/26/2023 Active FreeStyle Lite w/Device Kit Use as directed. 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 6 mL 3 01/01/2024 Active Cefdinir 300 MG Oral Capsule (Omnicef) Take 1 Capsule by mouth in the morning and 1 Capsule before bedtime. Do all this for 10 days. 20 Capsule 03/14/2024 Active documented as of this encounter (statuses as of 03/18/2024) Active Problems Problem Noted Date Diagnosed Date [...] myocardial infarct 03/18/2009 Overview: Modified by Acute ID Protocol #5. 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 OF [place] CORONARY VESSEL 09/20/2006 VARIANTS OF MIGRAINE WITHOUT MENTION OF INTRACTABLE MIGRAINE 01/25/1994 Gout Benign neoplasm of colon Overview: hyperplastic/ repeat colonoscopy in 5 yrs documented as of this encounter (statuses as of 03/18/2024) Resolved Problems Problem Noted Date Diagnosed Date [...] of right leg 10/03/2011 05/29/2017 [employer] Other*[id number] 12/15/2009 07/31/2014 Overview: Patterns of Non-Adherence to Anti-Platelet Regimens in Stented Patients PI: Dr. Arnold RC: Jenny Fitch RN EXAMINATION OF PARTICIPANT I N CLINICAL TRIAL- genomics 12/09/2009 12/10/2009 Overview: Renamed Per Clinical Trials Billing Project. Study Titile: Genomics Markers for Patients with Cardiovascular Disease Project # [id number] PI: Tara Browning MD Please call [phone] with study related questions GENOMICS CARDIO RESEARCH OTHER*[id number] 12/09/2009 10/03/2016 Overview: Renamed Per Clinical Trials Billing Project. Study Titile: Genomics Markers for Patients with Cardiovascular Disease Project # [id number] PI: Tara Browning MD Please call [phone] with study related questions HTN, goal below [...] infarction 04/04/2005 03/18/2009 Overview: Modified by Acute ID Protocol #5. TUBULOVILLOUS POLYP OF RECTUM 01/20/2005 05/29/2017 Mixed dyslipidemia 11/07/2004 9 Overview: Per Lipid Taxonomy. Type 2 diabetes mellitus wit h hemoglobin A1c goal of less than 7.0% 08/08/2002 06/24/2009 Overview: Per Diabetes Taxonomy. ICD-10 update of inactive term HTN, goal below 140/90 09/22 Overview: Per HTN Taxonomy. documented as of this encounter (statuses as of 03/18/2024) Immunizations Name Administration Dates Next Due COVID-19 [...] Care Team (Late st Contact Info) Description 03/18/2024 8:20 AM EDT Office Visit General Internal Medicine [facility] [address] [facility] [place] [address] Monica García MD [address] [place] [address] Arrived 04/25/2024 8:45 AM EDT Office Visit Orthopaedics [facility] [address] [place] [address] Elmer Lawler MD [address] [place] [address] 06/02/2024 3:45 PM EDT Office Visit Urology, [facility] [address] [place] [address] Bry Arnold MD [address] [place] [id number] Pending Results Name Type Priority Associated Diagnoses Date /Time COMPREHENSIVE METABOLIC PANEL Lab STAT Fever, unspecified fever cause Headache, unspecified headache type S/P aortic valve replacement Abnormal AST and ALT 03/18/2024 7:15 AM EDT Health Maintenance Due Date Last Done Comments COVID-19 Vaccine ( season) 2023 01/25/2023, 12/14/2021, 06/20/2021, Additional history exists Influenza Vaccine (FLU shot) (#1) 2024 04/28/2022, 05/03/2021, 05/18/2020, Additional history exists Colonoscopy 05/09/2024 05/09/2019, 11/25, 01/20/2011, Additional history exists B-12 06/07/2024 06/07/2023, 03/0 08/2021, 05/28/2020 CKD PHOS USE SMARTSET 06225 06/07/202405/27, 11/15/2021, 09/23/2020, Additional history exists Diabetic Foot Exam 06/11/2024 06/11/2023, 0 10/26/2021, 12/07/2020, Additional history exists HbA1c 06/29/2024 12/28/2023, 05/27, 11/08/2022, Additional history exists GFR 09/14/2024 03/14/2024, 05/0 10/2023, 06/07/2023, Additional history exists Diabetic Eye Exam 10/18/2024 10/18/2023, , 04/25/2021, Additional history exists Albumin/Creatinine Ratio 12/27/2024 024, 11/08/2022, 10/26/2021, Additional history exists Depression Screening 12/31/2024 01/01/2024 CKD HGB USE SMARTSET 90479 03/14/202503/14, 03/14/2024, 06/07/2023, Additional history exists DTaP,Tdap,and Td Vaccines (4 - Td or Tdap) 03/26/2030 03/26/2020, 01/21/2010, 01/21/2010, Additional history exists Pneumococcal Vaccine: 65+ Years Completed 05/25/2016, 12/25/2014, 06/09/2005 RETIRED - COLONOSCOPY-EVERY 5 YRS AGES 18-100 Discontinued 05/09/2019, 12/10/2013, 01/20/2011, Additional history exists Zoster Vaccines Completed 06/30/2020, 02/26, 08/29/2012 *BASELINE EKG FOR HTN Completed 12/07/2020 , 01/02/2017, 05/11/2010, Additional history exists HPV (Gardasil) Vaccine Aged Out No lo nger eligible based on patient's age to complete this topic Hepatitis B Vaccine Aged Out No longe r eligible based on patient's age to complete this topic MENINGOCOCCAL (MENACTRA/MENVEO) Aged Out No longer eligible based on patient's age to complete this topic documented as of this encounter Medical Devices Implanted Type Area Accounting Specialist Device Identifier Shelf Expiration Date Model / Serial / Lot Sut Steel 6 [id number] - [id number] Implanted:Qty: 6 on 05/11/2010 at OR [facility] [place] N/A: Chest DO NOT USE 02/24/2015 [id number] / / [id number] Valve Heart Aortic Mag Eas 21m - [id number] Implanted:Qty: 1 on 05/11/2010 at OR [facility] [place] N/A: Heart TripshareCITradingScreen TOVA 03/21/2014 [id number] / [id number] / Graft Marker Coronary - [id number] Implanted:Qty: 2 on 05/11/2010 at OR [facility] [place] N/A: Heart VM CARDIO VASCULAR 04/27/2012 [id number] / / [id number] documented as of this encounter Visit Diagnoses Diagnosis Fever, unspecified fever cause Headache, unspecified headache type S/P aortic valve replacement Heart valve replaced by other means Abnormal AST and ALT Nonspecific elevation of levels of transaminase or lactic acid dehydrogenase (LDH) documented in this encounter Advance Directives Documents on File Type Date Recorded Patient Climbing Guide Expl anation Advance Directives and Living Will 11/26/2006 LIVING WILL LIVING W ILL Power of Furnace Packer 11/26/2006 POWER OF A TTORNEY DURABLE HEALTHCARE POWER OF ANIMAL HUSBANDMAN * Full Code (Latest Code Status on [...] Power of Attor boo? No Care Teams Academic Department Chair Relationship Specialty Start Date End Date Fadi Scott DO [address] [place] [address] PCP - General Family Medicine 08/09/16 documented as of this encounter
--- OUTSIDE RECORDS SUMMARY | 2024-04-01 01:51 | External Medical Summary | Summary of Care ---
Author Name Unknown Organization [facility] Address [address] [place] [address] Phone [phone] Care Team Providers Care Lead Quality Technician Name Role Phone JasmeetFadi nesbitt Primary Care Provider [phone] Reason for Visit * Reason Comments Outpatient Testing Encounter Details Date Type Department Care Team (Late st Contact Info) Description 03/18/2024 7:00 AM EDT Laboratory Laboratory [facility] [place] [address] [place] [address] [place] [place] [address] Fever, unspecified fever cause; Headache, unspecified headache [...] goal of less than 7.0% ([facility]) Use daily to test blood sugar. E11.9 1 Kit 07/08/2018 Active Rosuvastatin Calcium 5 MG Oral Tablet (Crestor)Indications: Type 2 diabetes mellitus with hemoglobin A1c goal of less than 7.0% ([facility]),Dyslipidemia, goal LDL below 70 TAKE 1 TABLET 4 TIMES A WEEK ON MONDAYS, WEDNESDAYS, FRIDAYS AND SATURDAYS 48 Tab 3 03/09/2021 Active Nitroglycerin 0.4 MG Sublingual Tablet Sublingual (Nitrostat) 12/20/2021 Active diphenhydrAMINE HCl 25 MG Oral Capsule (Benadryl) Take 1 Capsule by mouth at bedtime as needed. Active Clopidogrel Bisulfate 75 MG Oral Tablet (Plavix)Indications:C oronary atherosclerosis of [place] coronary artery Take 1 Tablet by mouth in the morning. 90 Tablet 3 03/14/2023 Active FreeStyle LancetsIndications:Ty pe 2 diabetes mellitus with hemoglobin A1c goal of less than 7.0% ([facility]) Test blood sugar once daily Dx E11.9 [...] stage III (GFR 30-59 ml/min) ([facility]) Take 1 Tablet by mouth in the morning. 90 Tablet 2 10/30/2023 Active metFORMIN HCl ER 500 MG Oral Tablet Extended Release 24 Hour (Glucophage XR) (1) pill twice daily 180 Tablet 2 10/30/2023 Active FreeStyle Lite Test In Vitro Strip (Glucose Blood)Indications:Typ e 2 diabetes mellitus with hemoglobin A1c goal of less than 7.0% ([facility]) Use with blood glucose meter once daily. [...] myocardial infarct 03/18/2009 Overview: Modified by Acute [place] Protocol #5. 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 OF [place] CORONARY VESSEL 09/20/2006 VARIANTS OF MIGRAINE WITHOUT [...] of right leg 10/03/2011 05/29/2017 [employer] Other*[id number] 12/15/2009 07/31/2014 Overview: Patterns of Non-Adherence to Anti-Platelet Regimens in Stented Patients PI: Dr. Arnold RC: Jenny Fitch RN EXAMINATION OF PARTICIPANT I N CLINICAL TRIAL- genomics 12/09/2009 12/10/2009 Overview: Renamed Per Clinical Trials Billing Project. Study Titile: Genomics Markers for Patients with Cardiovascular Disease Project # [id number] PI: Tara Browning MD Please call [phone] with study related questions GENOMICS CARDIO RESEARCH OTHER*[id number] 12/09/2009 10/03/2016 Overview: Renamed Per Clinical Trials Billing Project. Study Titile: Genomics Markers for Patients with Cardiovascular Disease Project # [id number] PI: Tara Browning MD Please call [phone] with study related questions HTN, goal below [...] infarction 04/04/2005 03/18/2009 Overview: Modified by Acute GA Protocol #5. TUBULOVILLOUS POLYP OF RECTUM 01/20/2005 [...] AM EDT Office Visit General Internal Medicine [facility] [address] [facility] [place] [address] Monica García MD [address] [facility] [place] [address] 04/25/2024 8:45 AM EDT Office Visit Orthopaedics [facility] [address] [place] [address] Elmer Lawler MD [address] [place] [address] 06/02/2024 3:45 PM EDT Office Visit Urology, [facility] [address] [place] [address] Bry Arnold MD [address] [place] [...] 03/0 08/2021, 05/28/2020 CKD PHOS USE SMARTSET 28739 06/07/202405/27, 11/15/2021, 09/23/2020, Additional history exists Diabetic Foot Exam 06/11/2024 06/11/2023, 0 10/26/2021, 12/07/2020, Additional history exists HbA1c 06/29/2024 12/28/2023, 05/27, 11/08/2022, Additional history exists GFR 09/14/2024 03/14/2024, 05/0 10/2023, 06/07/2023, Additional history exists Diabetic Eye Exam 10/18/2024 10/18/2023, , 04/25/2021, Additional history exists Albumin/Creatinine Ratio 12/27/2024 024, 11/08/2022, 10/26/2021, Additional history exists Depression Screening 12/31/2024 01/01/2024 CKD HGB USE SMARTSET 13564 03/14/202503/14, 03/14/2024, 06/07/2023, Additional history exists DTaP,Tdap,and [...] this encounter Medical Devices Implanted Type Area Solution Coordinator Device Identifier Shelf Expiration Date Model / Serial / Lot Sut Steel 6 M654g - [id number] Implanted:Qty: 6 on 05/11/2010 at [place] [facility] [place] N/A: Chest DO NOT USE 02/24/2015 [id number] / / [id number] Valve Heart Aortic Mag Eas 21m - [id number] Implanted:Qty: 1 on 05/11/2010 at [place] [facility] [place] N/A: Heart InvariumCIBlackLocus TOVA 03/21/2014 [id number] / [id number] / Graft Marker Coronary - [id number] Implanted:Qty: 2 on 05/11/2010 at [place] [facility] [place] N/A: Heart VM CARDIO VASCULAR 04/27/2012 [id number] / / [id number] documented as of this encounter Visit Diagnoses Diagnosis Fever, unspecified fever cause Headache, unspecified headache type S/P aortic valve replacement Heart valve replaced by other means Abnormal AST and ALT Nonspecific elevation of levels of transaminase or lactic acid dehydrogenase (LDH) documented in this encounter Advance Directives Documents on File Type Date Recorded 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 No Care Teams Lead Quality Technician Relationship Specialty Start Date End Date Fadi Scott DO [address] [place] [address] PCP - General Family Medicine 08/09/16 documented as of this encounter
--- OUTSIDE RECORDS SUMMARY | 2024-04-01 01:51 | External Medical Summary | Summary of Care ---
Author Name Unknown Organization [facility] Address [address] [address] Phone [phone] Care Team Providers Care Account Collector Name Role Phone JasmeetFadi nesbitt Primary Care Provider [phone] Reason for Referral * (Within 24 hrs (call dept; emergent)) - Authorized Specialty Diagnoses / Procedures Referred By Contac t Referred To Contact Radiology Diagnoses Abnormal LFTs Gallstones Procedures US ABDOMEN LIMITED Monica García MD [address] [facility] [place], [place] [address] Referral ID Status Reason Start Date Expiration Date V isits Requested Visits Authorized [id number] Authorized 03/18/2024 999 999 Reason for Visit * Reason Comments Return Visit 3 day return, review labs. Encounter Details Date Type Department Care Team (Late st Contact Info) Description 03/18/2024 8:20 AM EDT Office Visit General Internal Medicine [address] [place] [address] [place] [address] Monica García MD [address] [facility] [place] [address] E. 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 90 Tablet 2 10/30/2023 Active metFORMIN HCl ER 500 MG Oral Tablet Extended Release 24 Hour (Glucophage XR) (1) pill twice daily 180 Tablet 2 10/30/2023 Active FreeStyle Lite Test In Vitro Strip (Glucose Blood)Indications:Typ e 2 diabetes mellitus with hemoglobin A1c goal of less than 7.0% ([facility]) Use with blood glucose meter once daily. E11.9 300 Strip 1 11/26/2023 Active FreeStyle Lite w/Device Kit Use as directed. 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 OF [place] CORONARY VESSEL 09/20/2006 VARIANTS OF MIGRAINE [...] of right leg 10/03/2011 05/29/2017 [employer] Other*[id number] 12/15/2009 07/31/2014 Overview: Patterns of Non-Adherence to Anti-Platelet Regimens in Stented Patients PI: Dr. Arnold RC: Jenny Fitch RN EXAMINATION OF PARTICIPANT I N CLINICAL TRIAL- genomics 12/09/2009 12/10/2009 Overview: Renamed Per Clinical Trials Billing Project. Study Titile: Genomics Markers for Patients with Cardiovascular Disease Project # [id number] PI: Tara Browning MD Please call [phone] with study related questions GENOMICS CARDIO RESEARCH OTHER*[id number] 12/09/2009 10/03/2016 Overview: Renamed Per Clinical Trials Billing Project. Study Titile: Genomics Markers for Patients with Cardiovascular Disease Project # [id number] PI: Tara Browning MD Please call [phone] with study related questions HTN, goal below [...] 0 08/27/1967 - 08/27/1969 Smokeless Tobacco: Former Tobacco Cessation:Counseling Given: Not Answered Alcohol Use Standard Drinks/Week Comments Yes 0 [...] on file documented as of this encounter Last Filed Vital Signs Vital Sign Reading Time Taken Comments Blood Pressure 116/70 03/18/2024 8:17 AM EDT Pulse 84 03/18/2024 8:17 AM EDT Temperature 35.7 C (96.3 F) 03/18/2024 8:17 AM ED T Respiratory Rate - - Oxygen Saturation 96% 03/18/2024 8:17 AM EDT Inhaled Oxygen Concentration - - Weight 77.9 kg (171 lb 11.2 oz) 03/18/2024 8:17 AM EDT Height 177.8 cm (5' 10") 03/18/2024 8:17 AM EDT Body Mass Index 24.64 03/18/2024 8:17 AM EDT documented in this encounter Progress Notes * Monica García MD - 03/18/2024 8:33 AM EDT SUBJECTIVE: Poncho Guan is a 78 year old male. Chief Complaint Patient presents with Return Visit 3 day return, review labs. Nursing Notes: Jax Patel, MED ASSIST 03/18/24 0819 Signed The patient has been properly identified by confirmation of name and date of . Chief Complaint Patient presents with Return Visit 3 day return, review labs. HPI: 3 day f/u Wt Readings from Last 4 Encounters: 03/18/24 77.9 kg (171 lb 11.2 oz) 03/14/24 79.8 kg (175 lb 14.4 oz) 01/01/24 81.3 kg (179 lb 3.2 oz) 06/11/23 81.6 kg (179 lb 12.8 oz) BP Readings from Last 4 Encounters: 03/18/24 116/70 03/14/24 140/70 01/01/24 126/68 06/11/23 130/80 Patient with a past medical history as noted below as per ID note 04/18. CAD s/p CABG, s/p AVR w/ bioprosthetic valve (2009), HTN, DM2, PVD, [place], L renal mass, and CKD III, hospitalized at [facility] in January 2023 for alpha Strep salivarius bacteremia (no vegetation on TTE; no MARIA ELENA done because coach driver at [facility] recommended against MARIA ELENA at that time). Discharged on CTX 2 gm iv qd to be completed on 03/28/23: blood cultures w/ no growth on 02/14/23. He has tolerated abx w/o any specific side effect. He currently feels well w/o fever, chills, n/v, abd pain or diarrhea. PICC has been removed w/o any complication.ct amoxicillin for ppx before dental work Seen 03/14/24 with 5 day onset of symptoms of headache, low-grade fever and chills at night 99- 100 F. loss of appetite. He had traveled to [place] to be with his kids but they were not sick. Denies any tick bite. No URI symptoms. No cough wheezing chest pain or shortness of breath. No palpitations. No nausea vomiting or diarrhea. Dysuria for the last 2 days, elevated PSA followed by Urology. He has not done home COVID test. Last COVID booster 02/13/2023 UA + uti, cbc with hi WBC s/o infection,CMP with inc alt/ast 137/99, sl low sodium 132 and high sugar 183 -start omnicef 300mg bid x 10days, hold crestor, added on anaplasma- Sima f/u in 4 days with stat labs -any provider Result note sent to nurse and licensed investment sales assistant 03/18/2024--presents today for follow-up appointment, states he is feeling much better. No recurrentfevers. Urine color is improved, no dysuria, Has increase intake of fluids. Liver enzymes alt/ast are elevated, no abdominal pain or back pain. No nausea or vomiting. Denies diarrhea. No postprandial abdominal bloating. Previous imaging reviewed. -chronic left renal cyst which has been stable on recent ultrasound done by Urology, known gallstones but does not seem to be symptomatic. Will add on hepatitis panel, obtain ultrasound rt upper quadrant. States he has a personal work today and prefers to get the ultrasound tomorrow. Since he is asymptomatic should be okay for now, statin is on hold Has been on allopurinol since 15/06 MRI pancreas-05/2022--COMPARISON: MRI abdomen of 11/13/2017, 11/02/2016. IMPRESSION: 1. 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 No further follow-up is required. 2. Cholelithiasis. 3. Simple left renal cysts. 02/19/24-US renal-nml-3.7 cm cyst with thin internal septation (previously 2.9 cm). Component Latest Ref Rng 03/14/2024 03/18/2024 BUN 6 - 20 mg/dL 18 23 (H) Creatinine 0.6 - 1.2 mg/dL 1.3 (H) 1.3 (H) Estimated Glomerular Filtration Rate >=60 mL/min 59 (L) 56 (L) Sodium 135 - 146 mmol/L 132 (L) 136 Potassium 3.5 - 5.1 mmol/L 4.2 4.6 Chloride 98 - 107 mmol/L 93 (L) 98 CO2 22 - 32 mmol/L 25 20 (L) Anion Gap 7 - 15 mmol/L 14 18 (H) Glucose 70 - 120 mg/dL 183 (H) 158 (H) Albumin 3.8 - 5.0 g/dL 4.4 3.6 (L) AST 10 - 50 U/L 99 (H) 51 (H) Alkaline Phosphatase 35 - 130 U/L 93 92 Bilirubin, Total <=1.2 mg/dL 1.1 0.4 Calcium 8.4 - 10.2 mg/dL 9.7 9.6 Protein 6.0 - 8.3 g/dL 8.4 (H) 7.8 ALT 10 - 50 U/L 137 (H) 151 (H) WBC 4.00 - 10.80 K/uL 13.11 (H) Neutrophils % 40.0 - 75.0 % 86.2 (H) Lymphocytes % 18.0 - 42.0 % 5.3 (L) Monocytes % 1.0 - 11.0 % 7.8 Eosinophils % 0.0 - 6.0 % 0.5 Basophils % 0.0 - 2.0 % 0.2 Absolute Neutrophils 1.80 - 7.70 K/uL 11.30 (H) Absolute Lymphocytes 1.00 - 4.80 K/ul 0.70 (L) Absolute Monocytes 0.00 - 1.10 K/uL 1.02 Absolute Eosinophils 0.00 - 0.70 K/uL 0.06 Absolute Basophils 0.00 - 0.20 K/uL 0.03 WBC 4.00 - 10.80 K/uL 13.11 (H) RBC 4.50 - 5.25 M/uL 4.61 HGB 14.0 - 16.8 g/dL 16.1 HCT 40.0 - 48.4 % 46.0 MCV 82.0 - 99.5 fL 99.8 MCH 27.0 - 34.0 pg 34.9 MCHC 32.0 - 36.0 g/dL 35.0 RDW 11.5 - 15.5 % 12.2 PLT 140 - 400 K/uL 177 MPV 6.6 - 11.1 fL 10.2 Component Latest Ref Rn 03/14/2024 Lyme IgM Confirmation Negative Negative Lyme IgG Confirmation Negative Negative Interpretation -- Lyme Disease Antibody Screen Negative Positive ! Blood c/s --NGTD Anaplasma pending Component Latest Ref Rn 03/14/2024 Color, Urine Light Yellow, Yellow, Dark Yellow Yellow Clarity, Urine Clear Cloudy ! Glucose, Urine Negative mg/dL Negative Bilirubin, Urine Negative Negative Ketone, Urine Negative mg/dL Negative Specific [place], Urine 1.003 - 1.030 1.015 Blood, Urine Negative Moderate ! pH, Urine 5.0 - 7.5 Units 6.0 Protein, Urine Negative mg/dL >=300 ! Urobilinogen, Urine 0.2, 1.0 mg/dL 0.2 Nitrite, Urine Negative Positive ! Esterase, Urine Negative Small ! RBC, Urine 0 - 2 /HPF 3-5 ! WBC, Urine 0 - 2 /HPF 50+ ! Bacteria, Urine 0 - 25 /HPF >200 ! 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 Multiple Vitamins-Minerals (MULTIVITAL) chewable tablet Take 1 Tablet by mouth in the morning. Blood Glucose Monitoring Suppl (BLOOD GLUCOSE MONITOR SYSTEM) w/Device KIT Use daily to test blood sugar. E11.9 1 Kit 0 Clopidogrel Bisulfate 75 MG Oral Tablet (Plavix) Take 1 Tablet by mouth in the morning. 90 Tablet 3 FreeStyle Lancets Test blood sugar once daily Dx E11.9 300 Each 1 Metoprolol Succinate ER 100 MG Oral Tablet Extended Release 24 Hour (toPROL XL) Take 1 Tablet by mouth in the morning. 90 Tablet 3 Allopurinol 300 MG Oral Tablet (Zyloprim) One pill by mouth once a day- for gout prevention 90 Tablet 3 Spironolactone 25 MG Oral Tablet (Aldactone) Take 1 Tablet by mouth in the morning. 90 Tablet 2 metFORMIN HCl ER 500 MG Oral Tablet Extended Release 24 Hour (Glucophage XR) (1) pill twice daily 180 Tablet 2 FreeStyle Lite Test In Vitro Strip (Glucose Blood) Use with blood glucose meter once daily. E11.9 300 Strip 1 FreeStyle Lite w/Device Kit Use as directed. 1 Kit 0 Trulicity 4.5 MG/0.5ML Subcutaneous Solution Pen-injector (Dulaglutide) Inject 4.5 mg under the skin once a week. 6 mL 3 Cefdinir 300 MG Oral Capsule (Omnicef) Take 1 Capsule by mouth in the morning and 1 Capsule before bedtime. Do all this for 10 days. 20 Capsule 0 Rosuvastatin Calcium 5 MG Oral Tablet (Crestor) TAKE 1 TABLET 4 TIMES A WEEK ON MONDAYS, WEDNESDAYS, FRIDAYS AND SATURDAYS (Patient not taking: Reported on 03/18/2024) 48 Tab 3 Nitroglycerin 0.4 MG Sublingual Tablet Sublingual (Nitrostat) (Patient not taking: Reported on 03/18/2024) diphenhydrAMINE HCl 25 MG Oral Capsule (Benadryl) Take 1 Capsule by mouth at bedtime as needed. (Patient not taking: Reported on 03/18/2024) No current facility-administered medications for this visit. Review of patient's allergies indicates: Allergen Reactions Atorvastatin Calcium Marked elevation CK Niacin Flushing and Other (Please comment) "pins and needles" OBJECTIVE: BP 116/70 | Pulse 84 | Temp 35.7 C (96.3 F) | Ht 1.778 m (5' 10") | Wt 77.9 kg (171 lb 11.2 oz)| SpO2 96% | BMI 24.64 kg/m | BSA 1.96 m PHYSICAL EXAM: General: alert, healthy, no distress, well nourished and well developed Head: Normocephalic, atraumatic Eye Exam: PERRLA, EOMI, Conjunctiva are pink and non-injected, sclera clear Ears: External ears normal Nose: no mucosal erythema, no mucosal edema, no purulent discharge Oropharynx:lareg tongue, dry, min eythema Rt site pnd Neck: supple, no adenopathy, no bruits, no JVD, thyroid normal size, non-tender, without nodularity Lymph: No palpable lymphadenopathy. Heart: regular Rhythm and rate,3/6 sm base Lungs: lungs clear to auscultation Abdomen: soft, non-tender, normal bowel sounds, no masses or organomegaly, no bruits Extremities: no edema, no clubbing, no cyanosis Neuro Exam: alert & oriented x 3 with fluent speech, no focal motor/sensory deficits, gait normal Skin: skin color, texture, turgor are normal, no rashes ASSESSMENT/PLAN: E. 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 Abnormal transaminases question related to infection versus gallstones but he is asymptomatic, obtain ultrasound,stay well hydrated drink at least 10 cups of fluids per day, repeat CMP on Sunday, if any significant abnormality to contact PCP as I will be out of the office. Follow-up: Return if symptoms worsen or fail to improve. | Check-out note: Sima stat US RUQ (This note was completed using the dictation program Fluency Direct. As such, there may be misspellings, word substitutions, or other variations that should not change the essence of the clinical content of this encounter note. If there is need for further clarification, please direct questions to the provider listed above.) Patient and / caregiver verbalize understanding of above instructions and agrees with plan of care. Monica García MD 03/18/2024 documented in this encounter Nursing Notes * Jax Patel MED ASSIST - 03/18/2024 8:17 AM EDT The patient has been properly identified by confirmation of name and date of . Chief Complaint Patient presents with Return Visit 3 day return, review labs. documented in this encounter Plan of Treatment Upcoming Encounters Date Type Department Care Team (Late st Contact Info) Description 03/19/2024 7:45 AM EDT Imaging Radiology [facility] [address] [place] [address] 04/25/2024 8:45 AM EDT Office Visit Orthopaedics [facility] [address] [place] [address] Elmer Lawler MD [address] [place] [address] 06/02/2024 3:45 PM EDT Office Visit Urology, [facility] [address] [place] [address] Bry Arnold MD [address] [place] [id number] Scheduled Orders Name Type Priority Associated Diagnoses Orde r Schedule ACUTE HEPATITIS PANEL Lab Routine Abnormal LFTs Expected: 03/18/2024 (Approximate), Expires: 03/18/2025 US ABDOMEN LIMITED Medical Imaging STAT Abnormal LFTs Gallstones Expected: 03/18/2024, Expires: 04/18/2025 COMPREHENSIVE METABOLIC PANEL Lab STAT Abnormal LFTs History of endocarditis Gallstones Dyslipidemia, goal LDL below 70 Chronic ischemic heart disease Expected: 03/21/2024 (Approximate), Expires: 03/18/2025 Health Maintenance Due Date Last Done Comments COVID-19 Vaccine ( season) 2023 01/25/2023, 12/14/2021, 06/20/2021, Additional history exists Influenza Vaccine (FLU shot) (#1) 2024 04/28/2022, 05/03/2021, 05/18/2020, Additional history exists Colonoscopy 05/09/2024 05/09/2019, 11/25, 01/20/2011, Additional history exists B-12 06/07/2024 06/07/2023, 03/0 08/2021, 05/28/2020 CKD PHOS USE SMARTSET [id number] 06/07/202405/27, 11/15/2021, 09/23/2020, Additional history exists Diabetic Foot Exam 06/11/2024 06/11/2023, 0 10/26/2021, 12/07/2020, Additional history exists HbA1c 06/29/2024 12/28/2023, 05/27, 11/08/2022, Additional history exists GFR 09/18/2024 03/18/2024, 02/24, 12/28/2023, Additional history exists Diabetic Eye Exam 10/18/2024 10/18/2023, , 04/25/2021, Additional history exists Albumin/Creatinine Ratio 12/27/2024 024, 11/08/2022, 10/26/2021, Additional history exists Depression Screening 12/31/2024 01/01/2024 CKD HGB USE SMARTSET 95455 03/14/202503/14, 03/14/2024, 06/07/2023, Additional history exists DTaP,Tdap,and [...] this encounter Medical Devices Implanted Type Area Calender Feeder Device Identifier Shelf Expiration Date Model / Serial / Lot Sut Steel 6 [id number] - [id number] [place]planted:Q[place] 6 on 05[place]11[place] [facility] [place]: Chest DO NOT USE 02/24/2015 [id number] / / [id number] Valve Heart Aortic Mag Eas 21m - [id number] Implanted:Qty: 1 on 05/11/2010 [place] [facility] [place]A: Heart Seeding [employer] TOVA 03/21/2014 [id number] / [id number] / Graft Marker Coronary - [id number] Implanted:Qty: 2 on 05/11/2010 [place] [facility] [place]: Heart VM CARDIO VASCULAR 04/27/2012 [id number] / / [id number] documented as of this encounter Visit Diagnoses Diagnosis E. 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 No Care Teams Account Collector Relationship Specialty Start Date End Date Fadi Scott DO [address] [place] [address] PCP - General Family Medicine 08/09/16 documented as of this encounter
--- OUTSIDE RECORDS SUMMARY | 2024-04-01 01:51 | External Medical Summary ---
Author Name Unknown Address Unknown Organization K09:[facility] [address] [place] [address] Laboratory Report Ordering Provider Test Date Status SHELLY ROOT 03/21/2024 07:10:04 Final Observation Date Value Abnormality Reference (Units ) Status BUN 03/21/2024 07:10:04 21 Above high normal 6-20 (mg/dL) Final Creatinine 03/21/2024 07:10:04 1.3 Above high normal 0.6-1.2 (mg/dL) Final Glomerular filtration rate/1.73 sq M.predicted [Volume Rate/Area] in Serum, Plasma or Blood by Creatinine-based formula (CKD-EPI) 03/21/2024 07:10:04 55 Below low normal >=60 (mL/min) Final eGFR is calculated based on the CKD-EPI 2020 equation. Sodium 03/21/2024 07:10:04 136 135-146 (m mol/L) Final Potassium 03/21/2024 07:10:04 4.8 3.5-5.1 (m mol/L) Final Cl 03/21/2024 07:10:04 99 98-107 (mm ol/L) Final CO2 03/21/2024 07:10:04 25 22-32 (mmo l/L) Final Anion gap 03/21/2024 07:10:04 12 7-15 (mmol /L) Final Glucose 03/21/2024 07:10:04 152 Above high normal 70 -120 (mg/dL) Final Albumin 03/21/2024 07:10:04 4.0 3.8-5.0 (g /dL) Final AST (Aspartate aminotransferase) 03/21/2024 07:10:04 27 10-50 (U/L) Fin al Alk Phos 03/21/2024 07:10:04 76 35-130 (U/ L) Final Bilirubin, Total 03/21/2024 07:10:04 0.3 <=1 .2 (mg/dL) Final Calcium 03/21/2024 07:10:04 9.8 8.4-10.2 ( mg/dL) Final Protein 03/21/2024 07:10:04 7.7 6.0-8.3 (g /dL) Final ALT (Alanine aminotransferase) 03/21/2024 07:10:04 78 Above high normal 10-50 (U/L) Final Performing Location [facility] [address]
--- OUTSIDE RECORDS SUMMARY | 2024-04-01 01:51 | External Medical Summary ---
Author Name Unknown Address Unknown Organization K09:[facility] [address] [place] [address] Laboratory Report Ordering Provider Test Date Status SHELLY ROOT 03/18/2024 07:15:18 Final Observation Date Value Abnormality Reference (Units ) Status BUN 03/18/2024 07:15:18 23 Above high normal 6-20 (mg/dL) Final Creatinine 03/18/2024 07:15:18 1.3 Above high normal 0.6-1.2 (mg/dL) Final Glomerular filtration rate/1.73 sq M.predicted [Volume Rate/Area] in Serum, Plasma or Blood by Creatinine-based formula (CKD-EPI) 03/18/2024 07:15:18 56 Below low normal >=60 (mL/min) Final eGFR is calculated based on the CKD-EPI 2020 equation. Sodium 03/18/2024 07:15:18 136 135-146 (m mol/L) Final Potassium 03/18/2024 07:15:18 4.6 3.5-5.1 (m mol/L) Final Cl 03/18/2024 07:15:18 98 98-107 (mm ol/L) Final CO2 03/18/2024 07:15:18 20 Below low normal 22- 32 (mmol/L) Final Anion gap 03/18/2024 07:15:18 18 Above high normal 7- 15 (mmol/L) Final Glucose 03/18/2024 07:15:18 158 Above high normal 70 -120 (mg/dL) Final Albumin 03/18/2024 07:15:18 3.6 Below low normal 3.8 -5.0 (g/dL) Final AST (Aspartate aminotransferase) 03/18/2024 07:15:18 51 Above high normal 10-50 (U/L) Final Alk Phos 03/18/2024 07:15:18 92 35-130 (U/ L) Final Bilirubin, Total 03/18/2024 07:15:18 0.4 <=1 .2 (mg/dL) Final Calcium 03/18/2024 07:15:18 9.6 8.4-10.2 ( mg/dL) Final Protein 03/18/2024 07:15:18 7.8 6.0-8.3 (g /dL) Final ALT (Alanine aminotransferase) 03/18/2024 07:15:18 151 Above high normal 10-50 (U/L) Final Performing Location [facility] [address] [place] [address]
--- OUTSIDE RECORDS SUMMARY | 2024-04-01 01:51 | External Medical Summary | Summary of Care ---
Author Name Unknown Organization [facility] Address [address] [facility] [place] [address] Phone [phone] Care Team Providers Care Summons Server Name Role Phone Fadi Scott DO Primary Care Provider [phone] Reason for Referral * Precert (Within 24 hrs (call dept; emergent)) - Pending Review Specialty Diagnoses / Procedures Referred By Keisha byrd Referred To Contact Radiology Diagnoses Abnormal US (ultrasound) of abdomen Abnormal AST and ALT Gallbladder sludge Gallstones Acute cystitis without hematuria Procedures CT ABD/PELVIS W IV AND W ORAL CONTRAST Monica García MD [address] [facility] [place] [address] Referral ID Status Reason Start Date Expiration Date V isits Requested Visits Authorized [id number] Pending Review 03/19/2024 999 999 Reason for Visit * Reason Onset Date Comments Test Results Imaging Study 03/19/2024 Ultra sound Encounter Details Date Type Department Care Team (Late st Contact Info) Description 03/19/2024 Telephone Family Practice [facility] [address] [place] [address] Fadi Scott DO [address] [facility] [place] [address] Test Results Imaging Study (Ultrasound) Allergies Active Allergy Reactions Criticality Noted Date Comments Atorvastatin Calcium 05/11/2010 Marked elevation CK Niacin Flushing,Other (Please comment) 05/11/2010 "pins and needles" documented as of this encounter (statuses as of 03/19/2024) Medications Medication Sig Dispensed Refills Start Date [...] MG Oral Tablet (Plavix)Indications:C oronary atherosclerosis of [place] coronary artery Take 1 Tablet by mouth [...] disease, chronic, stage III (GFR 30-59 ml/min) ([facility]) Take 1 Tablet by mouth in the morning. 90 Tablet 2 10/30/2023 Active metFORMIN HCl ER 500 MG Oral Tablet Extended Release 24 Hour (Glucophage XR) (1) pill twice daily 180 Tablet 2 10/30/2023 Active FreeStyle Lite Test In Vitro Strip (Glucose Blood)Indications:Typ e 2 diabetes mellitus with hemoglobin A1c goal of less than 7.0% ([facility]) Use with blood glucose meter once daily. E11.9 300 Strip 1 11/26/2023 Active FreeStyle Lite w/Device Kit Use as directed. 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) Inject 4.5 mg under the skin once a week. 6 mL 3 01/01/2024 Active Cefdinir 300 MG Oral Capsule (Omnicef) Take 1 Capsule by mouth in the morning and 1 Capsule before bedtime. Do all this for 10 days. 20 Capsule 03/14/2024 Active documented as of this encounter (statuses as of 03/19/2024) Active Problems Problem Noted Date Diagnosed Date [...] myocardial infarct 03/18/2009 Overview: Modified by Acute [place] Protocol #5. 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 OF [place] CORONARY VESSEL 09/20/2006 VARIANTS OF MIGRAINE WITHOUT MENTION OF INTRACTABLE MIGRAINE 01/25/1994 Gout Benign neoplasm of colon Overview: hyperplastic/ repeat colonoscopy in 5 yrs documented as of this encounter (statuses as of 03/19/2024) Resolved Problems Problem Noted Date Diagnosed Date [...] of right leg 10/03/2011 05/29/2017 [employer] Other*[id number] 12/15/2009 07/31/2014 Overview: Patterns of Non-Adherence to Anti-Platelet Regimens in Stented Patients PI: Dr. Arnold RC: Jenny Fitch RN EXAMINATION OF PARTICIPANT I N CLINICAL TRIAL- genomics 12/09/2009 12/10/2009 Overview: Renamed Per Clinical Trials Billing Project. Study Titile: Genomics Markers for Patients with Cardiovascular Disease Project # [id number] PI: Tara Browning MD Please call [phone] with study related questions GENOMICS CARDIO RESEARCH OTHER*[id number] 12/09/2009 10/03/2016 Overview: Renamed Per Clinical Trials Billing Project. Study Titile: Genomics Markers for Patients with Cardiovascular Disease Project # [id number] PI: Tara Browning MD Please call [phone] with study related questions HTN, goal below [...] infarction 04/04/2005 03/18/2009 Overview: Modified by Acute [place] Protocol #5. TUBULOVILLOUS POLYP OF RECTUM 01/20/2005 05/29/2017 Mixed dyslipidemia 11/07/2004 9 Overview: Per Lipid Taxonomy. Type 2 diabetes mellitus wit h hemoglobin A1c goal of less than 7.0% 08/08/2002 06/24/2009 Overview: Per Diabetes Taxonomy. ICD-10 update of inactive term HTN, goal below 140/90 09/22 Overview: Per HTN Taxonomy. documented as of this encounter (statuses as of 03/19/2024) Immunizations Name Administration Dates Next Due COVID-19 [...] Miscellaneous Notes * Telephone Encounter - Clotilde Power MED ASSIST - 03/19/2024 11:40 AM EDT Patient aware and receptive to instructions. Please schedule CT abdomen/pelvis. Thanks! * Telephone Encounter - Monica García MD - 03/19/2024 9:[address] shows New mild right hydronephrosis of uncertain etiology. No shadowing calculus. Consider CT ofthe abdomen and pelvis for further evaluation. 2. Cholelithiasis and gallbladder sludge. No sonographic evidence of acute cholecystitis. Due to abn lft, UTI and gallstones with sludge -CT abd/pelvis ordered--pl inform and schedule same. * Telephone Encounter - Clotilde Power, [employer] - 03/19/2024 9:07 AM EDT [facility] calling to alert provider to significant abnormal results on abdominal ultrasound. documented in this encounter Plan of Treatment Upcoming Encounters Date Type Department Care Team (Late st Contact Info) Description 03/26/2024 2:15 PM EDT Imaging Radiology [facility]st [facility] [address] [facility] [place] [address] 04/25/2024 8:45 AM EDT Office Visit Orthopaedics [facility] [address] [facility] [place] [address] Elmer Lawler MD [address] [facility] [place] [address] 06/02/2024 3:45 PM EDT Office Visit Urology, [facility] [address] [facility] [place] [address] Bry Arnold MD [address] [place] [address] Scheduled Orders Name Type Priority Associated Diagnoses Orde r Schedule CT ABD/PELVIS W IV AND W ORAL CONTRAST Medical Imaging STAT Abnormal US (ultrasound) of abdomen Abnormal AST and ALT Gallbladder sludge Gallstones Acute cystitis without hematuria Expected: 03/19/2024, Expires: 04/19/2025 Health Maintenance Due Date Last Done Comments COVID-19 Vaccine ( season) 2023 01/25/2023, 12/14/2021, 06/20/2021, Additional history exists Influenza Vaccine (FLU shot) (#1) 2024 04/28/2022, 05/03/2021, 05/18/2020, Additional history exists Colonoscopy 05/09/2024 05/09/2019, 11/25, 01/20/2011, Additional history exists B-12 06/07/2024 06/07/2023, 03/0 08/2021, 05/28/2020 CKD PHOS USE SMARTSET [id number] 06/07/202405/27, 11/15/2021, 09/23/2020, Additional history exists Diabetic Foot Exam 06/11/2024 06/11/2023, 0 10/26/2021, 12/07/2020, Additional history exists HbA1c 06/29/2024 12/28/2023, 05/27, 11/08/2022, Additional history exists GFR 09/18/2024 03/18/2024, 02/24, 12/28/2023, Additional history exists Diabetic Eye Exam 10/18/2024 10/18/2023, , 04/25/2021, Additional history exists Albumin/Creatinine Ratio 12/27/2024 024, 11/08/2022, 10/26/2021, Additional history exists Depression Screening 12/31/2024 01/01/2024 CKD HGB USE SMARTSET [id number] 03/14/202503/14, 03/14/2024, 06/07/2023, Additional history exists DTaP,Tdap,and [...] this encounter Medical Devices Implanted Type Area Car Oiler Device Identifier Shelf Expiration Date Model / Serial / Lot Sut Steel 6 [id number] - [id number] Implanted:Qty: 6 on 05/11/2010 at OR [facility] [place] N/A: Chest DO NOT USE 02/24/2015 [id number] / / [id number] Valve Heart Aortic Mag Eas 21m - [id number] Implanted:Qty: 1 on 05/11/2010 at OR [facility] [place] N/A: Heart [employer] TOVA 03/21/2014 [id number] / [id number] / Graft Marker Coronary - [id number] Implanted:Qty: 2 on 05/11/2010 at OR [facility] [place] N/A: Heart VM CARDIO VASCULAR 04/27/2012 [id number] / / [id number] documented as of this encounter Visit Diagnoses Diagnosis Abnormal US (ultrasound) of abdomen- Primary Nonspecific (abnormal) findings on radiological and other examination of abdominal area, including retroperitoneum Abnormal AST and ALT Nonspecific elevation of levels of transaminase or lactic acid dehydrogenase (LDH) Gallbladder sludge Other specified disorder of gallbladder Gallstones Calculus of gallbladder without mention of cholecystitis or obstruction Acute cystitis without hematuria Acute cystitis documented in this encounter Advance Directives Documents on File Type Date Recorded Patient Bonding Agent Expl anation Advance Directives and Living Will 11/26/2006 LIVING WILL LIVING W ILL Power of Managed Care Liaison 11/26/2006 POWER OF A TTORNEY DURABLE HEALTHCARE POWER OF HAZMAT TECHNICIAN * Full Code (Latest Code Status on [...] Power of Attor boo? No Care Teams Summons Server Relationship Specialty Start Date End Date Fadi Scott DO [address] [place] [address] PCP - General Family Medicine 08/09/16 documented as of this encounter
--- OUTSIDE RECORDS SUMMARY | 2024-04-01 01:51 | External Medical Summary | Summary of Care ---
Author Name Unknown Organization [facility] Address [address] [facility] [facility] [address] Phone [phone] Care Team Providers Care Strategic Communications Manager Name Role Phone Shagufta Smith DO Primary Care Provider [phone] Reason for Visit * Reason Onset Date Comments Medication Refill 03/22/2024 Encounter Details Date Type Department Care Team (Late st Contact Info) Description 03/22/2024 Refill Family Practice [facility] [place] [address] [facility] [place] [address] Shagufta Smith DO [address] [facility] [place] [address] [place] coronary artery Allergies Active Allergy Reactions Criticality Noted Date Comments Atorvastatin Calcium 05/11/2010 Marked elevation CK Niacin Flushing,Other (Please comment) 05/11/2010 "pins and needles" documented as of this encounter (statuses as of 03/24/2024) Medications Medication Sig Dispensed Refills Start Date End Date Status ASPIRIN 81 MG PO CHEWIndications:S/P angioplasty with stent 1 Tab Oral Daily 30 12/15/2009 Active COQ-10 200 MG PO CAPS once daily Active Docusate Sodium 50 MG Oral Capsule Take by mouth 2 times a day. Active Multiple Vitamins-Minerals (MULTIVITAL) chewable tablet Take 1 Tablet by mouth in the morning. Active Blood Glucose Monitoring Suppl (BLOOD GLUCOSE MONITOR SYSTEM) w/Device KITIndications:Type 2 diabetes mellitus with hemoglobin A1c goal of less than 7.0% ([facility]) Use daily to test blood sugar. E11.9 1 Kit 07/08/2018 Active Rosuvastatin Calcium 5 MG Oral Tablet (Crestor)Indications :Type 2 diabetes mellitus with hemoglobin A1c goal of less than 7.0% ([facility]),Dyslipidemia, goal LDL below 70 TAKE 1 TABLET 4 TIMES A WEEK ON MONDAYS, WEDNESDAYS, FRIDAYS AND SATURDAYS 48 Tab 3 03/09/2021 Active Additional Information Patient not taking.Reported on 03/18/2024 Nitroglycerin 0.4 MG Sublingual Tablet Sublingual (Nitrostat) 12/20/2021 Active diphenhydrAMINE HCl 25 MG Oral Capsule (Benadryl) Take 1 Capsule by mouth at bedtime as needed. Active FreeStyle LancetsIndications:T ype 2 diabetes mellitus with hemoglobin A1c goal of less than 7.0% ([facility]) Test blood sugar once daily Dx E11.9 300 Each 1 05/14/2023 Active Metoprolol Succinate ER 100 MG Oral Tablet Extended Release 24 Hour (toPROL XL) Take 1 Tablet by mouth in the morning. 90 Tablet 3 05/14/2023 Active Allopurinol 300 MG Oral Tablet (Zyloprim)Indication s:Gout One pill by mouth once a day- for gout prevention 90 Tablet 3 07/12/2023 Active Spironolactone 25 MG Oral Tablet (Aldactone)Indicatio ns:Kidney disease, chronic, stage III (GFR 30-59 ml/min) ([facility]) Take 1 Tablet by mouth in the morning. 90 Tablet 2 10/30/2023 Active metFORMIN HCl ER 500 MG Oral Tablet Extended Release 24 Hour (Glucophage XR) (1) pill twice daily 180 Tablet 2 10/30/2023 Active FreeStyle Lite Test In Vitro Strip (Glucose Blood)Indications:Ty pe 2 diabetes mellitus with hemoglobin A1c goal of less than 7.0% ([facility]) Use with blood glucose meter once daily. E11.9 300 Strip 1 11/26/2023 Active FreeStyle Lite w/Device Kit Use as directed. 1 Kit 12/19/2023 Active Trulicity 4.5 MG/0.5ML Subcutaneous Solution Pen-injector (Dulaglutide)Indicat ions:Type 2 diabetes mellitus with stage 3a chronic kidney disease and hypertension ([facility]) Inject 4.5 mg under the skin once a week. 6 mL 3 01/01/2024 Active Cefdinir 300 MG Oral Capsule (Omnicef) Take 1 Capsule by mouth in the morning and 1 Capsule before bedtime. Do all this for 10 days. 20 Capsule 03/14/2024 03/24/20 24 Active Clopidogrel Bisulfate 75 MG Oral Tablet (Plavix)Indications: Coronary atherosclerosis of [place] coronary artery Take 1 Tablet by mouth in the morning. 90 Tablet 1 03/24/2024 Active Clopidogrel Bisulfate 75 MG Oral Tablet (Plavix)Indications: Coronary atherosclerosis of [place] coronary artery Take 1 Tablet by mouth in the morning. 90 Tablet 3 03/14/2023 03/22/20 24 Discontinu ed(Refill) documented as of this encounter (statuses as of 03/24/2024) Active Problems Problem Noted Date Diagnosed Date [...] myocardial infarct 03/18/2009 Overview: Modified by Acute [place] Protocol #5. 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 OF [place] CORONARY VESSEL 09/20/2006 VARIANTS OF MIGRAINE WITHOUT MENTION OF INTRACTABLE MIGRAINE 01/25/1994 Gout Benign neoplasm of colon Overview: hyperplastic/ repeat colonoscopy in 5 yrs documented as of this encounter (statuses as of 03/24/2024) Resolved Problems Problem Noted Date Diagnosed Date [...] of right leg 10/03/2011 05/29/2017 [employer] Other*[id number] 12/15/2009 07/31/2014 Overview: Patterns of Non-Adherence to Anti-Platelet Regimens in Stented Patients PI: Dr. Arnold RC: Jenny Fitch RN EXAMINATION OF PARTICIPANT I N CLINICAL TRIAL- genomics 12/09/2009 12/10/2009 Overview: Renamed Per Clinical Trials Billing Project. Study Titile: Genomics Markers for Patients with Cardiovascular Disease Project # [id number] PI: Tara Browning MD Please call [phone] with study related questions GENOMICS CARDIO RESEARCH OTHER*[id number] 12/09/2009 10/03/2016 Overview: Renamed Per Clinical Trials Billing Project. Study Titile: Genomics Markers for Patients with Cardiovascular Disease Project # [id number] PI: Tara Browning MD Please call [phone] with study related questions HTN, goal below [...] infarction 04/04/2005 03/18/2009 Overview: Modified by Acute [place] Protocol #5. TUBULOVILLOUS POLYP OF RECTUM 01/20/2005 05/29/2017 Mixed dyslipidemia 11/07/2004 9 Overview: Per Lipid Taxonomy. Type 2 diabetes mellitus wit h hemoglobin A1c goal of less than 7.0% 08/08/2002 06/24/2009 Overview: Per Diabetes Taxonomy. ICD-10 update of inactive term HTN, goal below 140/90 09/22 Overview: Per HTN Taxonomy. documented as of this encounter (statuses as of 03/24/2024) Immunizations Name Administration Dates Next Due COVID-19 [...] encounter Miscellaneous Notes * Telephone Encounter - Edwardo Billings RPh - 03/24/2024 6:33 AM EDT Signed Prescriptions: Disp Refills Clopidogrel Bisulfate 75 MG Oral Tablet (P*90 Tab*1 Sig: Take 1 Tablet by mouth in the morning.Authorizing Provider: SHAGUFTA SMITH User: EDWARDO BILLINGS documented in this encounter Plan of Treatment Upcoming Encounters Date Type Department Care Team (Late st Contact Info) Description 03/26/2024 2:15 PM EDT Imaging Radiology [facility] 1st Floor, [place] [address] [facility] [place] [address] 04/25/2024 8:45 AM EDT Office Visit Orthopaedics [facility] [address] [facility] [place] [address] Elmer Lawler MD [address] [facility] [place] [address] 06/02/2024 3:45 PM EDT Office Visit Urology, [facility] [address] [facility] [place] [address] Bry Arnold MD [address] [facility] [place] [id number] Health Maintenance Due Date Last Done Comments COVID-19 Vaccine ( season) 2023 01/25/2023, 12/14/2021, 06/20/2021, Additional history exists Influenza Vaccine (FLU shot) (#1) 2024 04/28/2022, 05/03/2021, 05/18/2020, Additional history exists Colonoscopy 05/09/2024 05/09/2019, 11/25, 01/20/2011, Additional history exists B-12 06/07/2024 06/07/2023, 03/0 08/2021, 05/28/2020 CKD PHOS USE SMARTSET 00245 06/07/202405/27, 11/15/2021, 09/23/2020, Additional history exists Diabetic Foot Exam 06/11/2024 06/11/2023, 0 10/26/2021, 12/07/2020, Additional history exists HbA1c 06/29/2024 12/28/2023, 05/27, 11/08/2022, Additional history exists GFR 09/21/2024 03/21/2024, 02/25, 03/14/2024, Additional history exists Diabetic Eye Exam 10/18/2024 10/18/2023, , 04/25/2021, Additional history exists Albumin/Creatinine Ratio 12/27/2024 024, 11/08/2022, 10/26/2021, Additional history exists Depression Screening 12/31/2024 01/01/2024 CKD HGB USE SMARTSET 52332 03/14/202503/14, 03/14/2024, 06/07/2023, Additional history exists DTaP,Tdap,and [...] this encounter Medical Devices Implanted Type Area Damper Fitter Device Identifier Shelf Expiration Date Model / Serial / Lot Sut Steel 6 M654g - [id number] Implanted:Qty: 6 on 05/11/2010 at OR [facility] [place] N/A: Chest DO NOT USE 02/24/2015 [id number] / / [id number] Valve Heart Aortic Mag Eas 21m - [id number] Implanted:Qty: 1 on 05/11/2010 at OR [facility] [place] N/A: Heart [employer] TOVA 03/21/2014 [id number] / [id number] / Graft Marker Coronary - [id number] Implanted:Qty: 2 on 05/11/2010 at OR [facility] [place] N/A: Heart VM CARDIO VASCULAR 04/27/2012 [id number] / / [id number] documented as of this encounter Visit Diagnoses Diagnosis Coronary atherosclerosis of [place] coronary artery documented in this encounter Advance Directives Documents on File Type Date Recorded Patient Tire Bladder Maker Expl anation Advance Directives and Living Will 11/26/2006 LIVING WILL LIVING W ILL Power of Motor Racer 11/26/2006 POWER OF A TTORNEY DURABLE HEALTHCARE POWER OF WHEEL POLISHER * Full Code (Latest Code Status on [...] Power of Attor boo? No Care Teams Strategic Communications Manager Relationship Specialty Start Date End Date Shagufta Smith DO [address] [place] [address] PCP - General Family Medicine 08/09/16 documented as of this encounter
--- OUTSIDE RECORDS SUMMARY | 2024-04-01 01:51 | External Medical Summary | Summary of Care ---
Author Name Unknown Organization [facility] Address [address] [place] [address] Phone [phone] Care Team Providers Care Foot Piece Assembler Name Role Phone JasmeetFadi nesbitt Primary Care Provider [phone] Reason for Visit * Reason Comments Outpatient Testing Encounter Details Date Type Department Care Team (Late st Contact Info) Description 03/21/2024 7:10 AM EDT [facility] [address] [place] [id number] [place], [address] [place] [address] Abnormal LFTs; History of endocarditis; Gallstones; Dyslipidemia, goal LDL below 70; Chronic ischemic heart disease Allergies Active Allergy Reactions Criticality Noted Date Comments Atorvastatin Calcium 05/11/2010 Marked elevation CK Niacin Flushing,Other (Please comment) 05/11/2010 "pins and needles" documented as of this encounter (statuses as of 03/21/2024) Medications Medication Sig Dispensed Refills Start Date [...] goal of less than 7.0% ([facility]) Use daily to test blood sugar. E11.9 1 Kit 07/08/2018 Active Rosuvastatin Calcium 5 MG Oral Tablet (Crestor)Indications: Type 2 diabetes mellitus with hemoglobin A1c goal of less than 7.0% ([facility]),Dyslipidemia, goal LDL below 70 TAKE 1 [...] MG Oral Tablet (Plavix)Indications:C oronary atherosclerosis of [place] coronary artery Take 1 Tablet by mouth in the morning. 90 Tablet 3 03/14/2023 Active FreeStyle LancetsIndications:Ty pe 2 diabetes mellitus with hemoglobin A1c goal of less than 7.0% ([facility]) Test blood sugar once daily Dx [...] stage III (GFR 30-59 ml/min) ([facility]) Take 1 Tablet by mouth in the morning. 90 Tablet 2 10/30/2023 Active metFORMIN HCl ER 500 MG Oral Tablet Extended Release 24 Hour (Glucophage XR) (1) pill twice daily 180 Tablet 2 10/30/2023 Active FreeStyle Lite Test In Vitro Strip (Glucose Blood)Indications:Typ e 2 diabetes mellitus with hemoglobin A1c goal of less than 7.0% ([facility]) Use with blood glucose meter once [...] as of this encounter (statuses as of 03/21/2024) Active Problems Problem Noted Date Diagnosed Date [...] ASYMPTOMATIC, W/O INFARCTION 09/20/2006 CORONARY ATHEROSCLER. OF [place] CORONARY VESSEL 09/20/2006 VARIANTS OF MIGRAINE WITHOUT MENTION OF INTRACTABLE MIGRAINE 01/25/1994 Gout Benign neoplasm of colon Overview: hyperplastic/ repeat colonoscopy in 5 yrs documented as of this encounter (statuses as of 03/21/2024) Resolved Problems Problem Noted Date Diagnosed Date [...] of right leg 10/03/2011 05/29/2017 [employer] Other*[id number] 12/15/2009 07/31/2014 Overview: Patterns of Non-Adherence to Anti-Platelet Regimens in Stented Patients PI: Dr. Arnold RC: Jenny Fitch RN EXAMINATION OF PARTICIPANT I N CLINICAL TRIAL- genomics 12/09/2009 12/10/2009 Overview: Renamed Per Clinical Trials Billing Project. Study Titile: Genomics Markers for Patients with Cardiovascular Disease Project # [id number] PI: Tara Browning MD Please call [phone] with study related questions GENOMICS CARDIO RESEARCH OTHER*[id number] 12/09/2009 10/03/2016 Overview: Renamed Per Clinical Trials Billing Project. Study Titile: Genomics Markers for Patients with Cardiovascular Disease Project # [id number] PI: Tara Browning MD Please call [phone] with study related questions HTN, goal below [...] as of this encounter (statuses as of 03/21/2024) Immunizations Name Administration Dates Next Due COVID-19 [...] Description 03/26/2024 2:15 PM EDT Imaging Radiology [facility] [address] [place] [address] 04/25/2024 8:45 AM EDT Office Visit Orthopaedics [facility] [address] [facility] [place] [address] Elmer Lawler MD [address] [facility] [place] [address] 06/02/2024 3:45 PM EDT Office Visit Urology, [facility] [address] [place] [address] Bry Arnold MD [address] [place] [id number] Pending Results Name Type Priority Associated Diagnoses Date /Time ACUTE HEPATITIS PANEL Lab Routine Abnormal LFTs 03/21/2024 7:10 AM EDT COMPREHENSIVE METABOLIC PANEL Lab STAT Abnormal LFTs History of endocarditis Gallstones Dyslipidemia, goal LDL below 70 Chronic ischemic heart disease 03/21/2024 7:10 AM EDT Health Maintenance Due Date Last Done Comments COVID-19 Vaccine ( season) 2023 01/25/2023, 12/14/2021, 06/20/2021, Additional history exists Influenza Vaccine (FLU shot) (#1) 2024 04/28/2022, 05/03/2021, 05/18/2020, Additional history exists Colonoscopy 05/09/2024 05/09/2019, 11/25, 01/20/2011, Additional history exists B-12 06/07/2024 06/07/2023, 03/0 08/2021, 05/28/2020 CKD PHOS USE SMARTSET [id number] 06/07/202405/27, 11/15/2021, 09/23/2020, Additional history exists Diabetic Foot Exam 06/11/2024 06/11/2023, 0 10/26/2021, 12/07/2020, Additional history exists HbA1c 06/29/2024 12/28/2023, 05/27, 11/08/2022, Additional history exists GFR 09/18/2024 03/18/2024, 02/24, 12/28/2023, Additional history exists Diabetic Eye Exam 10/18/2024 10/18/2023, , 04/25/2021, Additional history exists Albumin/Creatinine Ratio 12/27/2024 024, 11/08/2022, 10/26/2021, Additional history exists Depression Screening 12/31/2024 01/01/2024 CKD HGB USE SMARTSET 10587 03/14/202503/14, 03/14/2024, 06/07/2023, Additional history exists DTaP,Tdap,and [...] this encounter Medical Devices Implanted Type Area Cnc Maintenance Mechanic Device Identifier Shelf Expiration Date Model / Serial / Lot Sut Steel 6 [id number] - [id number] Implanted:Qty: 6 on 05/11/2010 at [place] [facility] [place] N/A: Chest DO NOT USE 02/24/2015 [id number] / / [id number] Valve Heart Aortic Mag Eas 21m - [id number] Implanted:Qty: 1 on 05/11/2010 at OR [facility] [place] N/A: Heart [employer] Mobile TOVA 03/21/2014 [id number] / [id number] / Graft Marker Coronary - [id number] Implanted:Qty: 2 on 05/11/2010 at [place] [facility] [place] N/A: Heart VM CARDIO VASCULAR 04/27/2012 [id number] / / [id number] documented as of this encounter Visit Diagnoses Diagnosis Abnormal LFTs Other abnormal blood chemistry History of endocarditis Personal history of other diseases of circulatory system Gallstones Calculus of gallbladder without mention of cholecystitis or obstruction Dyslipidemia, goal LDL below 70 Other and unspecified hyperlipidemia Chronic ischemic heart disease Chronic ischemic heart disease, unspecified documented in this encounter Advance Directives Documents on File Type Date Recorded Patient Excel Vba Developer Expl anation Advance Directives and Living Will 11/26/2006 LIVING WILL LIVING W ILL Power of Pathology Laboratory Technologist 11/26/2006 POWER OF A TTORNEY DURABLE HEALTHCARE POWER OF SMOKE CHASER * Full Code (Latest Code Status on [...] Power of Attor boo? No Care Teams Foot Piece Assembler Relationship Specialty Start Date End Date Fadi Scott DO [address] [place] [address] PCP - General Family Medicine 08/09/16 documented as of this encounter
--- OUTSIDE RECORDS SUMMARY | 2024-04-01 01:51 | External Medical Summary | Summary of Care ---
Author Name Unknown Organization [facility] Address [address] [place] [address] Phone [phone] Care Team Providers Care Binder Folder Operator Name Role Phone JasmeetFadi nesbitt Primary Care Provider [phone] Encounter Details Date Type Department Care Team (Late st Contact Info) Description 03/17/2024 Orders Only PATIENT PORTAL DO NOT DELETE THIS DEPT USED BY [place] [id number] Allergies Active Allergy Reactions Criticality Noted Date Comments Atorvastatin Calcium 05/11/2010 Marked elevation CK Niacin Flushing,Other (Please comment) 05/11/2010 "pins and needles" documented as of this encounter (statuses as of 03/17/2024) Medications Medication Sig Dispensed Refills Start Date [...] A1c goal of less than 7.0% ([facility]) Use daily to test blood sugar. E11.9 1 Kit 07/08/2018 Active Rosuvastatin Calcium 5 MG Oral Tablet (Crestor)Indications: Type 2 diabetes mellitus with hemoglobin A1c goal of less than 7.0% ([facility]),Dyslipidemia, goal LDL below 70 TAKE 1 TABLET 4 TIMES A WEEK ON MONDAYS, WEDNESDAYS, FRIDAYS AND SATURDAYS 48 Tab 3 03/09/2021 Active Nitroglycerin 0.4 MG Sublingual Tablet Sublingual (Nitrostat) 12/20/2021 Active diphenhydrAMINE HCl 25 MG Oral Capsule (Benadryl) Take 1 Capsule by mouth at bedtime as needed. Active Clopidogrel Bisulfate 75 MG Oral Tablet (Plavix)Indications:C oronary atherosclerosis of [place] coronary artery Take 1 Tablet by mouth in the morning. 90 Tablet 3 03/14/2023 Active FreeStyle LancetsIndications:Ty pe 2 diabetes mellitus with hemoglobin A1c goal of less than 7.0% ([facility]) Test blood sugar once daily Dx [...] chronic, stage III (GFR 30-59 ml/min) ([facility]) Take 1 Tablet by mouth in the morning. 90 Tablet 2 10/30/2023 Active metFORMIN HCl ER 500 MG Oral Tablet Extended Release 24 Hour (Glucophage XR) (1) pill twice daily 180 Tablet 2 10/30/2023 Active FreeStyle Lite Test In Vitro Strip (Glucose Blood)Indications:Typ e 2 diabetes mellitus with hemoglobin A1c goal of less than 7.0% ([facility]) Use with blood glucose meter once daily. E11.9 300 Strip 1 11/26/2023 Active FreeStyle Lite w/Device Kit Use as directed. 1 Kit 12/19/2023 Active Trulicity 4.5 MG/0.5ML Subcutaneous Solution Pen-injector (Dulaglutide)Indicati ons:Type 2 diabetes mellitus with stage 3a chronic kidney disease and hypertension ([facility]) Inject 4.5 mg under the skin once a week. 6 mL 3 01/01/2024 Active Cefdinir 300 MG Oral Capsule (Omnicef) Take 1 Capsule by mouth in the morning and 1 Capsule before bedtime. Do all this for 10 days. 20 Capsule 03/14/2024 Active documented as of this encounter (statuses as of 03/17/2024) Active Problems Problem Noted Date Diagnosed Date [...] myocardial infarct 03/18/2009 Overview: Modified by Acute [facility] Protocol #5. 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 OF [place] CORONARY VESSEL 09/20/2006 VARIANTS OF MIGRAINE WITHOUT MENTION OF INTRACTABLE MIGRAINE 01/25/1994 Gout Benign neoplasm of colon Overview: hyperplastic/ repeat colonoscopy in 5 yrs documented as of this encounter (statuses as of 03/17/2024) Resolved Problems Problem Noted Date Diagnosed Date [...] of right leg 10/03/2011 05/29/2017 LUC [employer] Other*[id number] 12/15/2009 07/31/2014 Overview: Patterns of Non-Adherence to Anti-Platelet Regimens in Stented Patients PI: Dr. Arnold RC: Jenny Fitch RN EXAMINATION OF PARTICIPANT I N CLINICAL TRIAL- genomics 12/09/2009 12/10/2009 Overview: Renamed Per Clinical Trials Billing Project. Study Titile: Genomics Markers for Patients with Cardiovascular Disease Project # [id number] PI: Tara Browning MD Please call [phone] with study related questions GENOMICS CARDIO RESEARCH OTHER*[id number] 12/09/2009 10/03/2016 Overview: Renamed Per Clinical Trials Billing Project. Study Titile: Genomics Markers for Patients with Cardiovascular Disease Project # [id number] PI: aTra Browning MD Please call [phone] with study related questions HTN, goal below [...] infarction 04/04/2005 03/18/2009 Overview: Modified by Acute [facility] Protocol #5. TUBULOVILLOUS POLYP OF RECTUM 01/20/2005 05/29/2017 Mixed dyslipidemia 11/07/2004 9 Overview: Per Lipid Taxonomy. Type 2 diabetes mellitus wit h hemoglobin A1c goal of less than 7.0% 08/08/2002 06/24/2009 Overview: Per Diabetes Taxonomy. ICD-10 update of inactive term HTN, goal below 140/90 09/22 Overview: Per HTN Taxonomy. documented as of this encounter (statuses as of 03/17/2024) Immunizations Name Administration Dates Next Due COVID-19 [...] AM EDT Office Visit General Internal Medicine [facility] [address] [facility] [place] [address] Monica García MD [address] [facility] [place] [address] 04/25/2024 8:45 AM EDT Office Visit Orthopaedics [facility] [address] [place] [address] Elmer Lawler MD [address] [place] [address] 06/02/2024 3:45 PM EDT Office Visit Urology, [facility] [address] [place] [address] Bry Arnold MD [address] [place] [id number] Health Maintenance Due Date Last Done Comments COVID-19 Vaccine (2022- season) 2023 01/25/2023, 12/14/2021, 06/20/2021, Additional history exists Influenza Vaccine (FLU shot) (#1) 2024 04/28/2022, 05/03/2021, 05/18/2020, Additional history exists Colonoscopy 05/09/2024 05/09/2019, 11/25, 01/20/2011, Additional history exists B-12 06/07/2024 06/07/2023, 03/0 08/2021, 05/28/2020 CKD PHOS USE SMARTSET 72798 06/07/202405/27, 11/15/2021, 09/23/2020, Additional history exists Diabetic Foot Exam 06/11/2024 06/11/2023, 0 10/26/2021, 12/07/2020, Additional history exists HbA1c 06/29/2024 12/28/2023, 05/27, 11/08/2022, Additional history exists GFR 09/14/2024 03/14/2024, 05/0 10/2023, 06/07/2023, Additional history exists Diabetic Eye Exam 10/18/2024 10/18/2023, , 04/25/2021, Additional history exists Albumin/Creatinine Ratio 12/27/2024 024, 11/08/2022, 10/26/2021, Additional history exists Depression Screening 12/31/2024 01/01/2024 CKD HGB USE SMARTSET 72556 03/14/202503/14, 03/14/2024, 06/07/2023, Additional history exists DTaP,Tdap,and [...] this encounter Medical Devices Implanted Type Area Ad Operations Specialist Device Identifier Shelf Expiration Date Model / Serial / Lot Sut Steel 6 M654g - [id number] Implanted:Qty: 6 on 05/11/2010 [place] [facility] [place] N/A: Chest DO NOT USE 02/24/2015 M654G / / [id number] Valve Heart Aortic Mag Eas 21m - [id number] Implanted:Qty: 1 on 05/11/2010 at [place] [facility] [place] N/A: Heart [id number] TOVA 03/21/2014 [id number] / [id number] / Graft Marker Coronary - [id number] Implanted:Qty: 2 on 05/11/2010 at [place] [facility] [place] N/A: Heart VM CARDIO VASCULAR 04/27/2012 [id number] / / [id number] documented as of this encounter Advance Directives Documents on File Type Date Recorded Patient Cost Estimator Expl anation Advance Directives and Living Will 11/26/2006 LIVING WILL LIVING W ILL Power of Ambulance Paramedic 11/26/2006 POWER OF A TTORNEY DURABLE HEALTHCARE POWER OF INKER * Full Code (Latest Code Status on [...] Power of Attor boo? No Care Teams Binder Folder Operator Relationship Specialty Start Date End Date Fadi Scott DO [address] [place] [address] [place] [address] PCP - General Family Medicine 08/09/16 documented as of this encounter
--- OUTSIDE RECORDS SUMMARY | 2024-04-01 01:52 | External Medical Summary ---
Author Name Unknown Address Unknown Organization K01:[facility] [place] [address] [place] [address] Laboratory Report Ordering Provider Test Date Status SHELLY ROOT 03/14/2024 10:45:02 Final Observation Date Value Abnormality Reference (Units ) Status Bacteria identified in Specimen by Culture 03/14/2024 10:45:02 No growth Final Test: Culture, Blood
Sp ecimen Source: Blood, Venous
Specimen Type: Blood
Specimen Date: 03/14/2024 1045
Result Date: 03/19/2024 1701
Result Status: Final result
Resulting Lab: [facility]
[address]
[place] [id number]

CULTURE

No growth

null Performing Location [facility] [place] [address] [place] [address]
--- OUTSIDE RECORDS SUMMARY | 2024-04-01 01:52 | External Medical Summary ---
Author Name Unknown Address Unknown Organization : Laboratory Report Ordering Provider Test Date Status SHELLY ROOT 03/14/2024 10:45:02 Final Observation Date Value Abnormality Reference (Units ) Status Anaplasma phagocytophilum DNA [Presence] in Blood by VERÓNICA with probe detection 03/14/2024 10:45:02 Not Detected Not Detected Final This test was developed and its analytical performance
characteristics have been determined by [email or web address]
[place], [place]. It has
not been cleared or approved by the U.S. Food and Drug
Administration. This assay has been validated pursuant
to the CLIA regulations and is used for clinical
purposes.

Test Performed at:
[facility]
[address] [facility]
[place], [place]
Aleksandar Marinelli M.D., Ph.D.,Director of Laboratories Performing Location
--- OUTSIDE RECORDS SUMMARY | 2024-04-01 01:52 | External Medical Summary ---
Author Name Unknown Address Unknown Organization K01:[facility] [place] [address] [place] [address] Laboratory Report Ordering Provider Test Date Status SHELLY ROOT 03/14/2024 10:45:02 Final Observation Date Value Abnormality Reference (Units ) Status Bacteria identified in Specimen by Culture 03/14/2024 10:45:02 No growth Final Test: Culture, Blood
Sp ecimen Source: Blood, Venous
Specimen Type: Blood
Specimen Date: 03/14/2024 1045
Result Date: 03/19/2024 1701
Result Status: Final result
Resulting Lab: [facility]
[address]
[place] [address]

CULTURE

No growth

null Performing Location [facility] - [address] [place] [address]
[2024-04-01 04:41] LABS: A calco-baum cmplx NotReported Not Detected (NotDetected); Bact fragilis Not Reported Not Detected (NotDetected); Blood Culture Id Panel See PCR Comment (NotDetected); C auris Not Reported Not Detected (NotDetected); CTX-M Resistant Gene Not Detected (NotDetected); Calbicans Not Reported Not Detected (NotDetected); Candida glabrata Not Reported Not Detected (NotDetected); Candida krusei Not Reported Not Detected (NotDetected); Cneoformans/gatti Not Reported Not Detected (NotDetected); Cparapsilosis Not Reported Not Detected (NotDetected); E cloacae compx Not Reported Not Detected (NotDetected); Efaecalis Not Reported Not Detected (NotDetected); Efaecium Not Reported Not Detected (NotDetected); Enterobacterales DETECTED (NotDetected); Enterobacterales Not Reported DETECTED (NotDetected); Escherichia coli Not Reported DETECTED (NotDetected); H influenzae Not Reported Not Detected (NotDetected); IMP Resistant Gene Not Detected (NotDetected); K aerogenes Not Reported Not Detected (NotDetected); KPC Resistant Gene Not Detected (NotDetected); Koxytoca Not Reported Not Detected (NotDetected); Kpneumoniae grp Not Reported Not Detected (NotDetected); Lmonocyt Not Reported Not Detected (NotDetected); N meningitidis Not Reported Not Detected (NotDetected); NDM Resistant Gene Not Detected (NotDetected); OXA 48 Like Resistant Gene Not Detected (NotDetected); P aeruginosa Not Reported Not Detected (NotDetected); Proteus spp Not Reported Not Detected (NotDetected); Salmonella spp Not Reported Not Detected (NotDetected); Staph lugdunensis Not Reported Not Detected (NotDetected); Staph spp. Not Reported Not Detected (NotDetected); Staphaureus Not Reported Not Detected (NotDetected); Staphepi Not Reported Not Detected (NotDetected); Stenmaltophilia Not Reported Not Detected (NotDetected); Strep agal(GrpB) Not Reported Not Detected (NotDetected); Strep pneum Not Reported Not Detected (NotDetected); Strep pyog (GrpA) Not Reported Not Detected (NotDetected); Strep spp Not Reported Not Detected (NotDetected); VIM Resistant Gene Not Detected (NotDetected); mcr-1 Colistin Resistant Gene Not Detected (NotDetected)
[2024-04-01] MEDS: CLOPIDOGREL BISULFATE 75 MG TAB PO SCH (07:59)
[2024-04-01] MEDS: METOPROLOL SUCC 50MG EXT REL TAB PO SCH (07:59)
--- NOTE | 2024-04-01 11:14 | Urology Consultation ---
Date of Consultation April 01, 2024 Assessment & Plan (1) UTI (urinary tract infection): Plan 78 yo/M admitted with UTI. - Afebrile and hemodynamically stable at present - Labs today show no leukocytosis and normal renal function. - Urine and blood cultures preliminary gram-negative bacilli - Voiding spontaneously, continue to monitor. - CT A/P reviewed and shows no urinary calculi or hydronephrosis and mild bladder wall thickening. - Renal ultrasound reviewed and shows a complex left renal cyst, no hydronephrosis. - No acute intervention warranted. - Continue antibiotics and tailor as culture data becomes available. - Continue supportive care. - Recommend monitoring bladder scan/PVRs to ensure he is emptying completely. - Patient reports baseline urinary frequency, hesitancy, nocturia. Consider addition of tamsulosin and finasteride for likely underlying BPH/LUTS. - We discussed further workup as an outpatient for recurrent infections. He is agreeable. Will arrange with our service. We can also continue to monitor the left renal cyst. - Urology will sign-off. Please call with any further questions, concerns, or changes in patient status. History of Present Illness Attending Physician: Armin Bates MD History of Present Illness 78-year-old male who presented from home with reports of fever and UTI symptoms. Per chart review, patient recently completed a course of cefdinir for E. coli UTI as an outpatient. In the ED he had a low-grade fever of 37.7, mildly tachycardic and hypertensive. Labs showing a mild leukocytosis of 11.6 and creatinine 1.57. Urinalysis with 2+ blood, positive nitrate, 3+ LE, 4+ bacteria. CT abdomen pelvis without contrast obtained and shows no urinary calculi or hydronephrosis and mild bladder wall thickening. Renal ultrasound was also obtained and shows a 3.9 cm left renal complex cyst/Bosniak category 2F cyst, likely 8 mm left renal nonobstructive calculus present, no hydronephrosis, and uniform bladder wall thickening. Urine and blood cultures collected and pending. He was given IV ceftriaxone in the ED. Admitted to medicine service. Urology is consulted for recurrent UTI. CT abdomen pelvis 03/31/24- 1. No urinary calculi or hydronephrosis. 2. Mild bladder wall thickening with minimal adjacent stranding. This could be correlated with urinalysis to exclude cystitis. 3. No bowel obstruction. Normal appendix. 4. Cholelithiasis. Renal ultrasound 03/31/24- A 3.9 cm left renal complex cyst/Bosniak category 2F cyst. Likely a 8 mm left renal nonobstructive calculus present. No hydronephrosis. Uniform 4 mm bladder wall thickness, possibly cystitis. Patient seen at bedside today. Awake, resting in bed on arrival. No acute distress. Denies fever, chills, nausea, vomiting. Voiding without issue. He reports some discomfort with voiding but no hematuria or dysuria. Denies abdominal or flank pain. At baseline, he reports of urinary frequency, hesitancy, nocturia. Patient was recently seen by [facility] urology for elevated PSA per his report. He was previously seen by urology in [place] for follow-up of the renal cyst. He is not currently on any urinary medications. Allergies Allergy/AdvReac Type Severity Reaction Status Date / Time atorvastatin Allergy Severe RHABDO Verified 02/12/24 14:16 niacin Allergy Mild FACIAL Verified 02/12/24 14:16 BURNING Home Medications Medication Instructions Recorded Confirmed Type allopurinol 300 mg tablet 300 mg PO HS 04/29/19 03/31/24 History aspirin 81 mg tablet,delayed 81 mg PO HS 04/29/19 03/31/24 History release (Yunior Low Dose Aspirin) coQ10 (ubiquinol) 200 mg capsule 200 mg PO QAM 04/29/19 03/31/24 History docusate sodium 100 mg tablet 200 mg PO BID 04/29/19 03/31/24 History (Stool Softener) metformin 500 mg tablet 500 mg PO BIDM 04/29/19 03/31/24 History spironolactone 25 mg tablet 25 mg PO QAM 04/29/19 03/31/24 History dulaglutide 0.75 mg/0.5 mL 4.5 mg subcut WK 10/27/21 03/31/24 History subcutaneous pen injector (Trulicity) clopidogrel 75 mg tablet (Plavix) 75 mg PO QAM 02/11/23 03/31/24 History jxkmsyzcseif-agp-maffb acid-vit 1 tab PO QAM 02/11/23 03/31/24 History K-lycop 400 mcg-20 mcg-370 mcg tablet (Men's 50 Plus Multivitamin) rosuvastatin 10 mg tablet 10 mg PO 4XWK 02/11/23 03/31/24 History metoprolol succinate 100 mg 100 mg PO QAM 03/31/24 03/31/24 History tablet,extended release 24 hr (Toprol XL) Patient History Medical History (Updated 03/31/24 @ 21:15 by NGOC Hall) Endocarditis of aortic valve Bacteremia Exertional angina Fatigue Coronary artery disease with exertional angina Gout History of colon polyps Cardiac murmur Sleep apnea no longer has, lost weight Surgical History History of hemorrhoidectomy History of colonoscopy History of tooth extraction 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 Lucas History of cardiac cath x2-- History of thoracentesis Family History Brother Family history of diabetes mellitus 2 Sister Family history of diabetes mellitus Other No family history of adverse response to anesthesia Social History Smoking Status: Never smoker Tobacco Type: Cigarettes Second Hand Exposure: No; Do You Dip or Chew Tobacco: No; Hx Alcohol Use: Yes Alcohol type: beer Hx Substance Use: No Preferred Language: Georgian Communication Ability: Effective Manifest/Order Organizer Print Orders Required: No Beliefs That Will Affect Care: None Current Living Situation: Spouse Other Information That Helps Us Care for You: No Feels Safe at Home: Yes Assistive Devices: None Review of Systems Review of Systems: All systems reviewed & are unremarkable except as noted in HPI & below Physical Exam Constitutional: well developed and well nourished; no acute distress Respiratory: normal respiratory effort; no respiratory distress and no labored breathing Musculoskeletal: Head/Neck/Chest: normocephalic Skin: No visible rashes or lesions to exposed skin areas Neurologic: moves all extremities and awake Psychiatric: A+Ox3, euthymic affect Results & Data Vital Signs (Past 12 Hours) Vital Signs Temp Pulse Pulse Pulse Resp BP Pulse Ox 04/01/24 10:57 37.2 C 82 15 109/67 97 04/01/24 07:27 37.6 C H 100 H 16 134/80 96 04/01/24 06:49 92 H 04/01/24 03:56 37.1 C 87 18 114/70 96 03/31/24 23:43 38.1 C H 101 H 18 134/78 97 O2 Del Method 04/01/24 10:57 Room Air 04/01/24 07:27 Room Air 04/01/24 06:49 04/01/24 03:56 Room Air 03/31/24 23:43 Room Air PG Care Time/CCT Total # of Minutes Spent Total Time Spent with Patient: Total time spent is greater than 50% in coordination of care (as documented) at patient's floor/unit and/or counseling patient: Coding Level of Care Code 55755 INT INP/OBS CARE MIN Diagnoses UTI (urinary tract infection) N39.0
[2024-04-01 12:21] LABS: Basophils # (auto) 0.03 K/uL (0.00-0.20); Basophils % (auto) 0.3 %; Eosinophils # (auto) 0.04 K/uL (0.00-0.50); Eosinophils % (auto) 0.4 %; Hematocrit (blood only) 40.2 % (42.0-52.0); Hemoglobin 13.9 g/dl (14.0-18.0); Immature Granulocytes # (auto) 0.06 K/uL (0.01-0.20); Immature Granulocytes % (auto) 0.6 %; Lymphocytes # (auto) 0.56 K/uL (1.20-3.40); Lymphocytes % (auto) 5.8 %; Mean Corpuscular Hemoglobin 33.8 pg (25.0-34.0); Mean Corpuscular Hgb Conc 34.6 g/dL (32.0-36.0); Mean Corpuscular Volume 97.8 fL (80.0-100.0); Mean Platelet Volume 10.3 fL (9.4-12.4); Monocytes # (auto) 0.78 K/uL (0.11-0.59); Monocytes % (auto) 8.1 %; Neutrophils # (auto) 8.16 K/uL (1.40-6.50); Neutrophils % (auto) 84.8 %; Platelet Count 159 K/uL (130-400); RDW Coefficient of Variation 12.5 % (11.5-14.5); RDW Standard Deviation 44.9 fL (36.4-46.3); Red Blood Count 4.11 M/uL (4.70-6.10); White Blood Count 9.63 K/ul (4.8-10.8)
[2024-04-01 12:37] LABS: Calcium 8.7 mg/dl (8.6-10.3); Creatinine Clr Calc Pharmacy 48.8 ml/min; Est GFR (African American) 60.4 ml/min; Est GFR (Non-African American) 52.1 ml/min
--- NOTE | 2024-04-01 13:27 | Hospitalist Progress Note ---
Date of Service April 01, 2024 Assessment & Plan (1) UTI (urinary tract infection): Plan: Possible Early Sepsis Recently finished 10-day course of cefdinir for UTI starting 03/14/2024 Patient presenting from home with reports of fever and UTI symptoms for a week The condition got worse on Sunday and the patient was brought into the emergency room yesterday for further evaluation and management Started on intravenous cefepime which was subsequently changed to ceftriaxone Urine culture and blood cultures are growing gram-negative bacilli awaiting further identification and sensitivity CT of the abdomen pelvis showed mild bladder wall thickening suggestive of cystitis, no urinary calculi or hydronephrosis Ultrasound of the kidney system showed renal cyst as mentioned below He has been feeling better since admission Will ask for ID evaluation And continue current antibiotic with intravenous ceftriaxone Left renal cyst Has been followed up by urologist in [place] Cyst has not been growing for the last 2 to 3 years Ultrasound did not show 3.9 cm left renal complex cyst and recommended follow-up Appreciate urology input and recommendation (2) Elevated LFTs: Plan: Outpatient labs on 03/14 showed AST 99, ALT 137, T. bili 1.1 LFTs now normalized, AST 18, ALT [address] ABD/pelvis, patient currently appears asymptomatic Transient LFT elevation likely secondary to recent infection (3) Diabetes mellitus, type 2: Plan: Hgb A1c 7.5 12/2023 Hold home Trulicity and metformin, NovoLog per protocol while hospitalized (4) CAD (coronary artery disease): (5) S/P aortic valve replacement with bioprosthetic valve: Plan: Appears stable, no reports of chest pain Continue beta-angela, statin, Plavix (6) Hypertension: Plan: Chronic, stable Continue metoprolol, will hold spironolactone during acute illness (7) Chronic kidney disease, stage 3: Plan: Baseline creatinine low to mid 1s Creat 1.5 today Monitor renal functions DVT PROPHYLAXIS SQ heparin P Admission and Anticipated Discharge Date Admission Date: March 31, 2024 Subjective 04/01/2024 The patient was seen and examined in medical telemetry unit in presence of the He has been complaining of UTI symptoms for about a week Condition got worse since Sunday and he was found to have gram-negative bacilli bacteremia and also UTI He has been feeling a little better since admission Review of Systems Review of Systems: All systems reviewed and are unremarkable except as noted below Physical Exam Physical Exam: Lying in bed without any acute distress Constitutional: well developed, well nourished, + ill appearing and average body habitus Eyes: PERRL, conjunctivae normal, anicteric sclerae ENMT: external ear and nose normal, oropharynx normal Neck: trachea midline, no thyromegaly Respiratory: no respiratory distress Auscultation: lungs clear to auscultation bilaterally Cardiovascular: Rate/Rhythm: regular rate and regular rhythm; not tachycardic Heart Sounds: normal S1 and normal S2; no murmur Extremities: no edema Gastrointestinal (Abdomen): Inspection/Auscultation: normal bowel sounds; abdomen not distended Percussion/Palpation: abdomen soft; abdomen nontender Musculoskeletal: No acute arthritis in any of the joints Neurologic: normal touch/pain/proprioception and moves all extremities; no focal motor deficits Psychiatric: A+Ox3, euthymic affect Lymphatic: no cervical or axillary lymphadenopathy Results & Data Results & Data Vital Signs (Past 12 Hours) Vital Signs Temp Pulse Pulse Pulse Resp BP Pulse Ox 04/01/24 10:57 37.2 C 82 15 109/67 97 04/01/24 07:27 37.6 C H 100 H 16 134/80 96 04/01/24 06:49 92 H 04/01/24 03:56 37.1 C 87 18 114/70 96 O2 Del Method 04/01/24 10:57 Room Air 04/01/24 07:27 Room Air 04/01/24 06:49 04/01/24 03:56 Room Air Laboratory Results Short CBC 03/31/24 04/01/24 Range/Units 16:26 12:01 WBC 11.60 H 9.63 (4.8-10.8) K/ul Hgb 16.1 13.9 L (14.0-18.0) g/dl Hct 46.9 40.2 L (42.0-52.0) % Plt Count 217 159 (130-400) K/uL BMP 03/31/24 04/01/24 16:26 12:01 Sodium 132 L 132 L Potassium 4.4 4.0 Chloride 96 L 100 Carbon Dioxide 25 26 BUN 22 21 Creatinine 1.57 H 1.31 Glucose 176 H 164 H Calcium 10.1 8.7 Liver Function 03/31/24 Range/Units 16:26 Total Bilirubin 1.4 H (0.2-1.0) mg/dl AST 18 (13-39) U/L ALT 25 (7-52) U/L Alkaline Phosphatase 71 (34-104) U/L Albumin 4.5 (3.4-5.0) gm/dl Urine 03/31/24 Range/Units 16:39 Urine Color Yellow Urine Appearance Turbid A (Clear) Urine pH 6.0 (4.5-7.5) Ur Specific [place] 1.015 (1.000-1.030) Urine Protein 3+ H (Negative) Urine Glucose (UA) 1+ H (Negative) Medications Administered Current Inpatient Medications Acetaminophen (Acetaminophen 325 Mg Tab) 650 mg PO Q4H PRN PRN Reason: pain/fever Stop: 04/30/24 20:37 Last Admin: 04/01/24 08:41 Dose: 650 mg Allopurinol (Allopurinol 300 Mg Tab) 300 mg PO [facility] Stop: 04/30/24 20:59 Last Admin: 03/31/24 22:23 Dose: 300 mg Aspirin (Aspirin 81 Mg Ectab) 81 mg PO [facility] Stop: 04/30/24 20:59 Last Admin: 03/31/24 22:23 Dose: 81 mg Clopidogrel Bisulfate (Clopidogrel Bisulfate 75 Mg Tab) [facility] [place] Stop: 05/01/24 08:59 Last Admin: 04/01/24 07:59 Dose: 75 mg Dextrose (Dextrose 50% 50 Ml Syringe) 25 - 50 ml IV UD PRN; Protocol PRN Reason: Hypoglycemia Protocol Stop: 04/30/24 20:37 Glucagon (Glucagon For Inj 1 Mg Vial) 1 mg SQ UD PRN; Protocol PRN Reason: Hypoglycemia Protocol Stop: 04/30/24 20:37 Glucose (Glucose 40% Gel 15 Gm Tube) 15 - 30 gm PO UD PRN; Protocol PRN Reason: Hypoglycemia Protocol Stop: 04/30/24 20:37 Glucose (Glucose 10 Tab/Tube) 4 - 8 tab PO UD PRN; Protocol PRN Reason: Hypoglycemia Treatment Stop: 04/30/24 20:37 Heparin Sodium (Porcine) (Heparin Sod 5,000 Unit/0.5 Ml Vial) 5,000 units SQ Q8 [facility] Stop: 04/30/24 21:59 Last Admin: 04/01/24 13:09 Dose: 5,000 units Ceftriaxone Sodium (Rocephin) 2,000 mg in 50 mls @ 100 mls/hr IV Q24H [facility] Stop: 04/15/24 16:59 Insulin Aspart (Insulin Aspart Per Unit Charge) 0 units SC ACHS [facility] Stop: 04/30/24 20:59 Last Admin: 04/01/24 13:09 Dose: 4 units Metoprolol Succinate (Metoprolol Succ 50mg Ext Rel Tab) 100 mg PO QAM [facility] Stop: 05/01/24 08:59 Last Admin: 04/01/24 07:59 Dose: 100 mg Miscellaneous (Carbohydrates For Hypoglycemia ) 15 - 30 gm PO UD PRN PRN Reason: Hypoglycemia Protocol Stop: 04/30/24 20:37 Rosuvastatin Calcium (Rosuvastatin Calcium 10 Mg Tab) 10 mg PO [id number]@0900 [facility] Stop: 05/02/24 08:59
[2024-04-01] MEDS: cefTRIAXone SODIUM 2,000 MG/50 ML BAG IV SCH (15:48)
--- NOTE | 2024-04-01 17:23 | Electrocardiogram Report ---
Test Reason : Blood Pressure : */* mmHG Vent. Rate : 120 BPM Atrial Rate : 120 BPM P-R Int : 130 ms QRS Dur : 100 ms QT Int : 308 ms P-R-T Axes : 47 88 52 degrees QTcB Int : 435 ms Sinus tachycardia Possible Left atrial enlargement T wave abnormality, consider inferior ischemia Abnormal ECG When compared with ECG of 12-Feb-2023 11:19, Inverted T waves have replaced nonspecific T wave abnormality in Inferior leads Confirmed by Kel Bryan ([id number]) on 04/01/2024 5:23:02 PM Referred By: REFERRED SELF Confirmed By: Kel Bryan
[2024-04-01] MEDS: TAMSULOSIN HCL 0.4 MG CAP PO SCH (20:16)
[2024-04-01] MEDS: ZOLPIDEM TARTRATE 5 MG TAB PO STA (22:41)
[2024-04-02 06:09] LABS: Basophils # (auto) 0.03 K/uL (0.00-0.20); Basophils % (auto) 0.4 %; Eosinophils # (auto) 0.12 K/uL (0.00-0.50); Eosinophils % (auto) 1.6 %; Hematocrit (blood only) 44.4 % (42.0-52.0); Hemoglobin 15.2 g/dl (14.0-18.0); Immature Granulocytes # (auto) 0.02 K/uL (0.01-0.20); Immature Granulocytes % (auto) 0.3 %; Lymphocytes # (auto) 0.77 K/uL (1.20-3.40); Lymphocytes % (auto) 10.3 %; Mean Corpuscular Hemoglobin 33.1 pg (25.0-34.0); Mean Corpuscular Hgb Conc 34.2 g/dL (32.0-36.0); Mean Corpuscular Volume 96.7 fL (80.0-100.0); Mean Platelet Volume 10.4 fL (9.4-12.4); Monocytes # (auto) 0.94 K/uL (0.11-0.59); Monocytes % (auto) 12.6 %; Neutrophils # (auto) 5.59 K/uL (1.40-6.50); Neutrophils % (auto) 74.8 %; Platelet Count 159 K/uL (130-400); RDW Coefficient of Variation 12.2 % (11.5-14.5); RDW Standard Deviation 43.8 fL (36.4-46.3); Red Blood Count 4.59 M/uL (4.70-6.10); White Blood Count 7.47 K/ul (4.8-10.8)
[2024-04-02 06:20] LABS: BUN Creatinine Ratio 17.4 (10-20); Calcium 9.2 mg/dl (8.6-10.3); Creatinine Clr Calc Pharmacy 52.8 ml/min; Est GFR (African American) 66.5 ml/min; Est GFR (Non-African American) 57.4 ml/min; Potassium 4.2 mmol/L (3.5-5.1)
[2024-04-02] MEDS: ROSUVASTATIN CALCIUM 10 MG TAB PO SCH (07:59)
[2024-04-02 10:57] VITALS: BP 108/69; RESP 16; TEMP 98.4; O2SAT 96
--- NOTE | 2024-04-02 11:56 | Hospitalist Progress Note ---
Date of Service April 02, 2024 Assessment & Plan (1) UTI (urinary tract infection): Plan: Possible Early Sepsis Recently finished 10-day course of cefdinir for UTI starting 03/14/2024 Patient presenting from home with reports of fever and UTI symptoms for a week The condition got worse on Sunday and the patient was brought into the emergency room yesterday for further evaluation and management Started on intravenous cefepime which was subsequently changed to ceftriaxone Urine culture and blood cultures are growing gram-negative bacilli awaiting further identification and sensitivity CT of the abdomen pelvis showed mild bladder wall thickening suggestive of cystitis, no urinary calculi or hydronephrosis Ultrasound of the kidney system showed renal cyst as mentioned below He has been feeling better since admission Will ask for ID evaluation And continue current antibiotic with intravenous ceftriaxone Clinically much better today without any significant symptoms Denies any abdominal pain, nausea and/or vomiting and no fever and no chills He will be discharged following ID recommendation Left renal cyst Has been followed up by urologist in [place] Cyst has not been growing for the last 2 to 3 years Ultrasound did not show 3.9 cm left renal complex cyst and recommended follow-up Appreciate urology input and recommendation (2) Elevated LFTs: Plan: Outpatient labs on 03/14 showed AST 99, ALT 137, T. bili 1.1 LFTs now normalized, AST 18, ALT [address] ABD/pelvis, patient currently appears asymptomatic Transient LFT elevation likely secondary to recent infection LFTs were normal on 03/31/2024 (3) Diabetes mellitus, type 2: Plan: Hgb A1c 7.5 12/2023 Hold home Trulicity and metformin, NovoLog per protocol while hospitalized (4) CAD (coronary artery disease): (5) S/P aortic valve replacement with bioprosthetic valve: Plan: Appears stable, no reports of chest pain Continue beta-angela, statin, Plavix (6) Hypertension: Plan: Chronic, stable Continue metoprolol, will hold spironolactone during acute illness (7) Chronic kidney disease, stage 3: Plan: Baseline creatinine low to mid 1s Creat 1.5 today Monitor renal functions DVT PROPHYLAXIS SQ heparin P Admission and Anticipated Discharge Date Admission Date: March 31, 2024 Subjective 04/01/2024 The patient was seen and examined in medical telemetry unit in presence of the He has been complaining of UTI symptoms for about a week Condition got worse since Sunday and he was found to have gram-negative bacilli bacteremia and also UTI He has been feeling a little better since admission 04/02/2024 The patient was seen and examined in medical telemetry unit He has been feeling much better denies any significant symptoms No fever or chills, no abdominal pain, nausea and or vomiting Awaiting ID evaluation before discharge Review of Systems Review of Systems: All systems reviewed and are unremarkable except as noted below Physical Exam Physical Exam: Lying in bed without any acute distress Constitutional: well developed, well nourished, + ill appearing and average body habitus Eyes: PERRL, conjunctivae normal, anicteric sclerae ENMT: external ear and nose normal, oropharynx normal Neck: trachea midline, no thyromegaly Respiratory: no respiratory distress Auscultation: lungs clear to auscultation bilaterally Cardiovascular: Rate/Rhythm: regular rate and regular rhythm; not tachycardic Heart Sounds: normal S1 and normal S2; no murmur Extremities: no edema Gastrointestinal (Abdomen): Inspection/Auscultation: normal bowel sounds; abdomen not distended Percussion/Palpation: abdomen soft; abdomen nontender Neurologic: normal touch/pain/proprioception and moves all extremities; no focal motor deficits Psychiatric: A+Ox3, euthymic affect Lymphatic: no cervical or axillary lymphadenopathy Results & Data Results & Data Vital Signs (Past 12 Hours) Vital Signs Temp Pulse Pulse Resp BP Pulse Ox O2 Del Method 04/02/24 10:55 36.9 C 83 16 108/69 96 Room Air 04/02/24 07:56 Room Air 04/02/24 07:24 37.4 C 91 H 15 124/79 97 Room Air 04/02/24 07:11 86 04/02/24 04:00 37.0 C 68 18 116/74 93 Room Air 04/01/24 23:55 36.8 C 102 H 18 122/69 94 Room Air Laboratory Results Short CBC 04/01/24 04/02/24 Range/Units 12:01 05:25 WBC 9.63 7.47 (4.8-10.8) K/ul Hgb 13.9 L 15.2 (14.0-18.0) g/dl Hct 40.2 L 44.4 (42.0-52.0) % Plt Count 159 159 (130-400) K/uL BMP 04/01/24 04/02/24 12:01 05:25 Sodium 132 L 133 L Potassium 4.0 4.2 Chloride 100 100 Carbon Dioxide 26 25 BUN 21 21 Creatinine 1.31 1.21 Glucose 164 H 132 H Calcium 8.7 9.2 Medications Administered Current Inpatient Medications Acetaminophen (Acetaminophen 325 Mg Tab) 650 mg PO Q4H PRN PRN Reason: pain/fever Stop: 04/30/24 20:37 Last Admin: 04/01/24 22:41 Dose: 650 mg Allopurinol (Allopurinol 300 Mg Tab) 300 mg PO HS [facility] Stop: 04/30/24 20:59 Last Admin: 04/01/24 20:16 Dose: 300 mg Aspirin (Aspirin 81 Mg Ectab) 81 mg PO HS [facility] Stop: 04/30/24 20:59 Last Admin: 04/01/24 20:16 Dose: 81 mg Clopidogrel Bisulfate (Clopidogrel Bisulfate 75 Mg Tab) 75 mg PO QAM [facility] Stop: 05/01/24 08:59 Last Admin: 04/02/24 07:59 Dose: 75 mg Dextrose (Dextrose 50% 50 Ml Syringe) 25 - 50 ml IV UD PRN; Protocol PRN Reason: Hypoglycemia Protocol Stop: 04/30/24 20:37 Glucagon (Glucagon For Inj 1 Mg Vial) 1 mg SQ UD PRN; Protocol PRN Reason: Hypoglycemia Protocol Stop: 04/30/24 20:37 Glucose (Glucose 40% Gel 15 Gm Tube) 15 - 30 gm PO UD PRN; Protocol PRN Reason: Hypoglycemia Protocol Stop: 04/30/24 20:37 Glucose (Glucose 10 Tab/Tube) 4 - 8 tab PO UD PRN; Protocol PRN Reason: Hypoglycemia Treatment Stop: 04/30/24 20:37 Heparin Sodium (Porcine) (Heparin Sod 5,000 Unit/0.5 Ml Vial) 5,000 units SQ Q8 [facility] Stop: 04/30/24 21:59 Last Admin: 04/02/24 06:18 Dose: 5,000 units Ceftriaxone Sodium (Rocephin) 2,000 mg in 50 mls @ 100 mls/hr IV Q24H [facility] Stop: 04/15/24 16:59 Last Infusion: 04/01/24 16:37 Dose: Infused Insulin Aspart (Insulin Aspart Per Unit Charge) 0 units SC ACHS [facility] Stop: 04/30/24 20:59 Last Admin: 04/02/24 08:54 Dose: Not Given Metoprolol Succinate (Metoprolol Succ 50mg Ext Rel Tab) 100 mg PO QAM [facility] Stop: 05/01/24 08:59 Last Admin: 04/02/24 07:59 Dose: 100 mg Miscellaneous (Carbohydrates For Hypoglycemia ) 15 - 30 gm PO UD PRN PRN Reason: Hypoglycemia Protocol Stop: 04/30/24 20:37 Rosuvastatin Calcium (Rosuvastatin Calcium 10 Mg Tab) 10 mg PO MoWeFrSa@0900 [facility] Stop: 05/02/24 08:59 Last Admin: 04/02/24 07:59 Dose: 10 mg Tamsulosin HCl (Tamsulosin Hcl 0.4 Mg Cap) 0.4 mg PO [facility] Stop: 05/01/24 20:59 Last Admin: 04/01/24 20:16 Dose: 0.4 mg
[2024-04-02 15:47] VITALS: PULSE 87
--- NOTE | 2024-04-02 15:49 | Infectious Disease Consult ---
Date of Service April 02, 2024 Telehealth Information I performed this visit using a real-time telehealth connection between my location and the patients location ([facility]). After connecting through interactive tele-video, patient was identified by name and date of and/or wristband check.Patient (or authorized healthcare sales promotion representative) was informed that this was a telemedicine visit and it was being conducted confidentially over secure lines. My office door was closed and no on e else was present in the room with me.Patient (or authorized healthcare sales promotion representative) provided consent to proceed with the visit, expressed an understanding of privacy and security of the telemedicine visit, and gave permission to have a hospital sales promotion representative in the room in order to assist with the visit and to conduct portions of the visit, as needed. I informed the patient (or authorized healthcare sales promotion representative) that I reviewed their record and presented the opportunity for them to ask any questions regarding the visit today. The patient agreed to participate. Assessment & Plan (1) E coli bacteremia: (2) Complicated UTI (urinary tract infection): (3) BPH (benign prostatic hyperplasia): Plan If the patient is hemodynamically stable and feeling better, I would recommend stepping down IV ceftriaxone to oral Cipro 500 mg twice daily (can also use levofloxacin 750 mg once daily) to complete a course of 14 days including inpatient appropriate antibiotic days. Follow up with Urology for further management of BPH. Thank you for consulting Infectious Disease. We will sign off for now. History of Present Illness History of Present Illness Mr. Guan is a 78-year-old man with medical history of type 2 diabetes, CAD, aor tic valve stenosis status post TAVR, HTN, CKD stage 3, and BPH who was admitted to [facility] on 03/31/2024 because of fever and headache. He mentioned that in late February 2024, he started complaining of fever and headache. At that time, his urine culture grew E coli and he was prescribed a 10 day course of cefdinir. Despite that, he continued to have fever and he continued to feel weak and not back to baseline which prompted him to come to the emergency department. On presentation, he was afebrile but tachycardic at 119 and hypertensive at 185/92. Few hours after, admission he had a fever of 38.1. Initial blood workup showed leukocytosis of 11.6 (ANC 9.6), elevated lactic acid of 3.3, elevated creatinine of 1.5 suggesting CAMELIA on top of CKD, and mildly elevated bilirubin of 1.4. Shortly after admission, 1 set of blood culture came back positive for E coli identified via PCR. Also, urine culture came back positive for the same organism. Id team was consulted for further recommendations and to help guide antibiotic treatment. Allergies Allergy/AdvReac Type Severity Reaction Status Date / Time atorvastatin Allergy Severe RHABDO Verified 02/12/24 14:16 niacin Allergy Mild FACIAL Verified 02/12/24 14:16 BURNING Home Medications Medication Instructions Recorded Confirmed Type allopurinol 300 mg tablet 300 mg PO HS 04/29/19 03/31/24 History aspirin 81 mg tablet,delayed 81 mg PO HS 04/29/19 03/31/24 History release (Yunior Low Dose Aspirin) coQ10 (ubiquinol) 200 mg capsule 200 mg PO QAM 04/29/19 03/31/24 History docusate sodium 100 mg tablet 200 mg PO BID 04/29/19 03/31/24 History (Stool Softener) metformin 500 mg tablet 500 mg PO BIDM 04/29/19 03/31/24 History spironolactone 25 mg tablet 25 mg PO QAM 04/29/19 03/31/24 History dulaglutide 0.75 mg/0.5 mL 4.5 mg subcut WK 10/27/21 03/31/24 History subcutaneous pen injector (Trulicity) clopidogrel 75 mg tablet (Plavix) 75 mg PO QAM 02/11/23 03/31/24 History [id number] acid-vit 1 tab PO QAM 02/11/23 03/31/24 History K-lycop 400 mcg-20 mcg-370 mcg tablet (Men's 50 Plus Multivitamin) rosuvastatin 10 mg tablet 10 mg PO [id number] 02/11/23 03/31/24 History metoprolol succinate 100 mg 100 mg PO QAM 03/31/24 03/31/24 History tablet,extended release 24 hr (Toprol XL) ciprofloxacin HCl 500 mg tablet 500 mg PO BID #24 tabs 04/02/24 Rx tamsulosin 0.4 mg capsule 0.4 mg PO HS #30 caps 04/02/24 Rx Patient History Medical History (Updated 04/02/24 @ 15:48 by Shannan Klein MD) Endocarditis of aortic valve Bacteremia Exertional angina Fatigue Coronary artery disease with exertional angina Gout History of colon polyps Cardiac murmur Sleep apnea no longer has, lost weight Surgical History History of hemorrhoidectomy History of colonoscopy History of tooth extraction History of aortic valve replacement done at same time as CABG @ [facility] [place]follows with Dr. Lucas History of cardiac cath x2-- History of thoracentesis Family History Brother Family history of diabetes mellitus 2 Sister Family history of diabetes mellitus Other No family history of adverse response to anesthesia Social History Smoking Status: Never smoker Tobacco Type: Cigarettes Second Hand Exposure: No; Do You Dip or Chew Tobacco: No; Hx Alcohol Use: Yes Alcohol type: beer Hx Substance Use: No Preferred Language: Kitt[place] Communication Ability: Effective Folder Taper Operator Required: No Beliefs That Will Affect Care: None Current Living Situation: Spouse Feels Safe at Home: Yes Assistive Devices: None Review of Systems Negative except for what was mentioned in the H&P. Physical Exam Could not be obtained as the encounter was performed via TeleMed. Results & Data Vital Signs (Past 12 Hours) Vital Signs Temp Pulse Pulse Resp BP Pulse Ox O2 Del Method 04/02/24 14:48 88 04/02/24 10:55 36.9 C 83 16 108/69 96 Room Air 04/02/24 07:56 Room Air 04/02/24 07:24 37.4 C 91 H 15 124/79 97 Room Air 04/02/24 07:11 86 04/02/24 04:00 37.0 C 68 18 116/74 93 Room Air Laboratory Results Microbiology: 03/31: 2/2 bottles of blood culture growing Gram-negative bacilli (identified as E coli via PCR) 03/31: Urine culture growing E coli Diagnostic Findings CT abdomen pelvis on 03/31: 1. No urinary calculi or hydronephrosis. 2. Mild bladder wall thickening with minimal adjacent stranding. This could be correlated with urinalysis to exclude cystitis. 3. No bowel obstruction. Normal appendix. 4. Cholelithiasis.
[2024-04-02] MEDS: CIPROFLOXACIN 500 MG TAB PO STA (15:50)
[2024-04-02] MEDS: cefTRIAXone SODIUM 2,000 MG/50 ML BAG IV STA (15:51)
--- NOTE | 2024-04-02 18:06 | Discharge Summary ---
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 History is obtained from the patient and review of outpatient PCP, cardiology, urology records. Patient presented to PCP on 03/14 with complaints of fever and headache. He was diagnosed with a UTI and placed on a 10-day course of cefdinir. Urine culture grew a pansensitive E. coli. Labs also showed mildly elevated AST and ALT, [address] ABD/pelvis showed Mild fullness of the right renal collecting system suggesting mild right hydronephrosis. No obstructing ureteral calculus is identified. Consider urology consultation. CT urogram may be helpful to exclude an occult ureteral lesion. Nonobstructing bilateral renal calculi measure up to approximately 8 mm on the left. Choleli thiasis. CT urogram was scheduled as follow up. patient reports that most of his symptoms improved however he never returned back to his baseline. 3 days ago, patient reports he felt generally ill and had shaking chills. Reports his fever was 100. Today, patient had another similar episode with an episode of vomiting. He then presented to the ED for further evaluation. Patient reports ongoing urinary frequency and foul-smelling urine. Denies back or flank pain. No abdominal pain. He denies chest pain and shortness of breath. No lightheadedness, dizziness, diaphoresis, syncopal events. In the ED, patient has a low-grade fever of 37.7, mildly tachycardic, WBC 11.6 K, initial lactate 3.3 with repeat 1.2. UA suggestive of UTI. Patient was given IV ceftriaxone and IVF. Admission Exam Per Admitting Provider Constitutional: WD/WN, vitals as above no acute distress Eyes: PERRL, conjunctivae normal, anicteric sclerae ENMT: external ear and nose normal, oropharynx normal Respiratory: normal respiratory effort, lungs clear to auscultation Cardiovascular: Rate/Rhythm: regular rhythm and + tachycardic Vessels: normal peripheral pulses Extremities: no edema Gastrointestinal (Abdomen): normal bowel sounds, soft, nontender, no hepatosplenomegaly Musculoskeletal: no cyanosis or clubbing, extremities motor strength 5/5 Skin: no rashes, warm and dry Neurologic: PERRL, EOMI, accommodation nl, no face palsy, no dysarthria Psychiatric: A+Ox3, euthymic affect Genitourinary: no CVA tenderness Principal Diagnosis E. coli UTI, E. coli bacteremia, left renal cyst,CAD ,status post aortic valve replacement with bioprosthetic valve Discharge Exam Lying in bed without any acute distress Constitutional well developed, well nourished, + ill appearing and average body habitus Eyes PERRL, conjunctivae normal, anicteric sclerae ENMT external ear and nose normal, oropharynx normal Neck trachea midline, no thyromegaly Respiratory no respiratory distress Auscultation: lungs clear to auscultation bilaterally Cardiovascular Rate/Rhythm: regular rate and regular rhythm; not tachycardic Heart Sounds: normal S1 and normal S2; no murmur Extremities: no edema Gastrointestinal (Abdomen) Inspection/Auscultation: normal bowel sounds; abdomen not distended Percussion/Palpation: abdomen soft; abdomen nontender Neurologic normal touch/pain/proprioception and moves all extremities; no focal motor deficits Psychiatric A+Ox3, euthymic affect Lymphatic no cervical or axillary lymphadenopathy Discharge Data Allergies Allergy/AdvReac Type Severity Reaction Status Date / Time atorvastatin Allergy Severe RHABDO Verified 02/12/24 14:16 niacin Allergy Mild FACIAL Verified 02/12/24 14:16 BURNING Consultations 03/31/24 17:42 ED Decision to Admit Stat 03/31/24 20:38 Consult Urology Routine 04/01/24 11:21 Consult Infectious Diseases Routine Ordered Studies 03/31/24 16:40 CT abd pelvis wo con Stat CT head/brain wo con Stat 03/31/24 18:45 US Renal Bladder [US renal/blad retro comp] Stat Hospital Course (1) UTI (urinary tract infection): Possible Early Sepsis Recently finished 10-day course of cefdinir for UTI starting 03/14/2024 Patient presenting from home with reports of fever and UTI symptoms for a week The condition got worse on Sunday and the patient was brought into the emergency room yesterday for further evaluation and management Started on intravenous cefepime which was subsequently changed to ceftriaxone Urine culture and blood cultures are growing gram-negative bacilli awaiting further identification and sensitivity CT of the abdomen pelvis showed mild bladder wall thickening suggestive of cystitis, no urinary calculi or hydronephrosis Ultrasound of the kidney system showed renal cyst as mentioned below He has been feeling better since admission Will ask for ID evaluation And continue current antibiotic with intravenous ceftriaxone Clinically much better today without any significant symptoms Denies any abdominal pain, nausea and/or vomiting and no fever and no chills He will be discharged following ID recommendation Left renal cyst Has been followed up by urologist in [place] Cyst has not been growing for the last 2 to 3 years Ultrasound did not show 3.9 cm left renal complex cyst and recommended follow-up Appreciate urology input and recommendation (2) Elevated LFTs: Outpatient labs on 03/14 showed AST 99, ALT 137, T. bili 1.1 LFTs now normalized, AST 18, ALT [address] ABD/pelvis, patient currently appears asymptomatic Transient LFT elevation likely secondary to recent infection LFTs were normal on 03/31/2024 (3) Diabetes mellitus, type 2: Hgb A1c 7.5 12/2023 Hold home Trulicity and metformin, NovoLog per protocol while hospitalized (4) CAD (coronary artery disease): (5) S/P aortic valve replacement with bioprosthetic valve: Appears stable, no reports of chest pain Continue beta-angela, statin, Plavix (6) Hypertension: Chronic, stable Continue metoprolol, will hold spironolactone during acute illness (7) Chronic kidney disease, stage 3: Baseline creatinine low to mid 1s Creat 1.5 today Monitor renal functions DVT PROPHYLAXIS SQ heparin P Total Time Total Time Spent Total Time Spent (In Minutes): 40 minutes Discharge Plan Discharge Items Patient Disposition: Home - Self-Care Reason For Visit: SEPSIS, UTI Discharge Diagnosis: E. coli UTI, E. coli bacteremia, left renal cyst,CAD ,status post aortic valve replacement with bioprosthetic valve Condition on Discharge: Good Activity: Resume your previous activity Non-emergency contact: Primary Care Provider Call non-emergency contact if: you have any medication questions and your symptoms worsen Follow-up/Referrals: Fadi Scott, [Primary Care Provider] - 04/07/24 3:20 pm (Date & Time 04/07/2024 3:20 PM Provider Shea Andersen MD [facility] ) Diet: Carb Consistent or DM2 and Heart Healthy Addtl Attending Provider Instructions: Please take precautions to avoid falls Finish the course of antibiotic You can try some probiotics [id number] Try to drink more fluid Please keep follow-up appointments with your healthcare providers Pending Studies at Discharge: No Stand-Alone Forms: My [facility] [email or web address], Smoking Cessation Medications and DC Order Prescriptions: New ciprofloxacin HCl 500 mg Tablet 500 mg PO BID Qty: 24 0RF tamsulosin 0.4 mg Capsule 0.4 mg PO HS Qty: 30 0RF Continued Trulicity 0.75 mg/0.5 mL pen injector 4.5 mg subcut WK Rx Instructions: SUNDAYS metformin 500 mg Tablet 500 mg PO BIDM Hold Instructions: Home Medication placed on hold at Doctor's office aspirin [Yunior Low Dose Aspirin] 81 mg Tablet,Delayed Release (Dr/Ec) 81 mg PO HS spironolactone 25 mg Tablet 25 mg PO QAM Hold Instructions: low bp allopurinol 300 mg Tablet 300 mg PO HS docusate sodium [Stool Softener] 100 mg Tablet 200 mg PO BID coQ10 (ubiquinol) 200 mg Capsule 200 mg PO QAM clopidogrel [Plavix] 75 mg Tablet 75 mg PO QAM Men's 50 Plus Multivitamin 400-20-370 mcg Tablet 1 tab PO QAM rosuvastatin 10 mg tablet 10 mg PO [id number] Rx Instructions: TAKES MON, WED, FRI & SAT. metoprolol succinate [Toprol XL] 100 mg tablet extended release 24 hr 100 mg PO QAM Discharge Orders: Discharge Order (Routine); Ordered 04/02/24 Ordered By: Armin Perez/Other Patient Handouts: Urinary Tract Infections in Men Admission Data Admit Date/Time: 03/31/24 17:59 Attending Provider: Armin Bates Admit Provider: Mari Herrmann Primary Care Provider: Fadi Scott Other Providers: Mari Herrmann; Wil Padron; Neo Broderick; Erasto Cid; Jovany Alford I.; Redd Collins II; Marce Hinojosa; Rg Salamanca; Yeison Hines; Shannan Klein Other Interventions: Discharge Summary Assessment (RN) Last Done: 04/02/24 16:36
[2024-04-02] MEDS ORDERED: CIPROFLOXACIN 500 MG TAB PO SCH (21:00)
== END 2024-04-02 16:38 | disposition home or self-care (01) | DRG 872 ==
LOC: ED 16:12 → SUATTDRO 17:59 → 2N 17:59